=== PATIENT | male | born 1945 | race Caucasian/White ===

== ENCOUNTER → 2020-10-14 | Outpatient (CLI) | payer OTHER ==
--- NOTE | 2020-10-14 13:34 | Diagnostic Imaging Report ---
INDICATION: History of kidney stones. COMPARISON: None FINDINGS: Single frontal radiographic view of the abdomen was obtained. Several punctate microcalcifications are seen projecting over the superior pole of the left kidney. Several other microcalcifications are also seen peripheral to the left renal shadow. Also these may relate to renal calculi, debris related to colonic content is also consideration. Multiple well-circumscribed round and extraosseous calcifications are also noted projecting over the pelvis, bilaterally. These may relate to venous phleboliths, although distal ureteral calculi cannot be excluded. There is no prior available for comparison. Patient is status post previous aortobiiliac stent graft. No unexpected radiopaque foreign bodies are seen. Small bowel loops are nondistended. There is no large collection of free intraperitoneal air. IMPRESSION: 1. Probable colonic debris projecting over the left renal shadow and fossa, although punctate renal calculi cannot be entirely excluded. If further evaluation is indicated, correlation with CT is advised. 2. Probable multiple phleboliths, although distal ureteral calculi are not entirely excluded. Dictated by: Dictated on workstation # [id number]
--- NOTE | 2020-10-14 13:51 | Diagnostic Imaging Report ---
PROCEDURE: CT abdomen and pelvis without contrast. TECHNIQUE: Multiple contiguous axial images were obtained through the abdomen and pelvis without the use of intravenous contrast. Auto Exposure Controls were utilized during the CT exam to meet ALARA standards for radiation dose reduction. INDICATION: Kidney stones. COMPARISON: No prior CT studies are available for comparison. FINDINGS: The lung bases are clear. The liver is unremarkable. Gallbladder contains multiple stones. No biliary duct dilatation is seen. Pancreas and spleen are unremarkable. No adrenal mass is identified. There is a tiny nonobstructing calculus in the lower pole of the right kidney. There are multiple cortical low attenuation lesions involving bilateral kidneys suggestive of cysts. There is a hyperdense lesion in the upper pole of the right kidney measuring 12 mm. It is indeterminate between a solid lesion versus hemorrhagic cyst. No hydronephrosis is identified. No ureteral calculi or ureteral dilatation is identified. Bladder is decompressed. 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 The excluded aneurysm sac dimensions are 5.7 cm AP diameter. Small and large bowel loops are normal caliber. There is no obstruction. There is diverticulosis of the sigmoid but no evidence of acute diverticulitis. The prostate is enlarged. The bony structures are nonacute. There is a fat-containing right inguinal hernia. IMPRESSION: 1. Cholelithiasis. 2. Tiny nonobstructing right renal calculus. No ureteral calculi or hydronephrosis is detected. 3. Bilateral renal cysts. 4. Indeterminate hyperdense lesion in the upper pole of the right kidney. Follow-up to confirm stability would be recommended. 5. Uncomplicated diverticulosis. 6. Prostatomegaly. 7. Fat-containing right inguinal hernia. Dictated by: Dictated on workstation # [id number]
== END ==
LOC: RAD 13:45
PROVIDERS: ATTEND Urology
DX: N20.0 Calculus of kidney (principal); N28.1 Cyst of kidney, acquired; N28.9 Disorder of kidney and ureter, unspecified; N40.0 Benign prostatic hyperplasia without lower urinary tract symptoms; K80.20 Calculus of gallbladder without cholecystitis without obstruction; K57.30 Diverticulosis of large intestine without perforation or abscess without bleeding; K40.90 Unilateral inguinal hernia, without obstruction or gangrene, not specified as recurrent
CPT/HCPCS: 74018; 74176

== ENCOUNTER 2021-08-07 17:33 | Observation (INO) | payer OTHER, MEDICARE ==
[~2021-08-07] VITALS: Ht 180 cm; Wt 95.5 kg
[2021-08-07] MEDS ORDERED: BISACODYL 10 MG SUPP (DULCOLAX) PR PRN (18:30)
[2021-08-07] MEDS ORDERED: LACTULOSE SYRUP 10GM/15ML (ENULOSE) 30ML UDC PO PRN (18:30)
[2021-08-07] MEDS ORDERED: ONDANSETRON 4 MG (ZOFRAN) ORAL DISSOLVE TAB PO PRN (18:30)
[2021-08-07] MEDS ORDERED: ENOXAPARIN 40 MG/0.4 ML (LOVENOX) SYR SC SCH (18:30)
[2021-08-07] MEDS ORDERED: diphenhydrAMINE 25 MG TAB (BENADRYL) PO PRN (18:30)
[2021-08-07] MEDS ORDERED: ONDANSETRON 4 MG/2 ML (SDV) Z0FRAN IV PRN (18:30)
[2021-08-07] MEDS ORDERED: NITROGLYCERIN 0.4 MG SL TABS BTL 25'S SL PRN (18:30)
[2021-08-07] MEDS ORDERED: ANTACID SUSP 30 ML UDC (MYLANTA) PO PRN (18:30)
[2021-08-07] MEDS ORDERED: polyethylene glycoL POWDER 17 GM (MIRALAX) PACK PO PRN (18:30)
[2021-08-07] MEDS ORDERED: MILK OF MAGNESIA 400 MG/5 ML 30 ML UDC PO PRN (18:30)
[2021-08-07] MEDS ORDERED: diphenhydrAMINE 50 MG/ML INJ (BENADRYL) IVP PRN (18:30)
[2021-08-07] MEDS ORDERED: NALOXONE 0.4 MG/ML 1 ML (NARCAN) VIAL IV PRN (18:30)
[2021-08-07] MEDS ORDERED: CALCIUM CARBONATE 500 MG (TUMS) TAB.CHEW PO PRN (18:30)
[2021-08-07] MEDS ORDERED: ACETAMINOPHEN 325 MG TABLET PO PRN (18:30)
[2021-08-07] MEDS ORDERED: PATIENT MAY USE OWN MEDS, ALL PO SCH (18:30)
[2021-08-07] MEDS ORDERED: morphine INJ 4 MG/ML 1 ML (VIAL/SYRINGE) IV PRN (18:30)
[2021-08-07] MEDS ORDERED: MELATONIN 3 MG TABLET PO PRN (18:30)
--- OUTSIDE RECORDS SUMMARY | 2021-08-07 18:51 | XMS REPORT | Encounter Summary ---
[facility] Address Unknown Phone Unavailable Support Name Relationship Address Phone Yvette BENITO Next Of Kin [address] [id number] Yvette BENITO ECON [address] [phone] Ariela BENITO Next Of Kin [address] [place] [address] Insurance Providers: All historical and current Section Date Range: From patient's date of to the date document was create d. This section includes the names of all active insurance providers for the maddie ordaz Insurance Provider Type of Coverage Plan Name Start of Policy Co verage End of Policy Coverage Group Number Member ID Insurance Provider's Telephone N umber Policy Raphael's Name Patient's Relationship to Policy Raphael [facility] [place] PREFERRED PROVIDER ORGANIZATION (PPO) ANGEL Jan 22, 1998 [id number] CHAPARRO BENITO PATIENT MEDICARE (WNR) MEDICARE (M) PART A Mar 04, 2015 PART A [id number] CHAPARRO BENITO PATIENT MEDICARE (WNR) MEDICARE (M) PART B Mar 04, 2015 PART B [id number] CHAPARRO BENITO PATIENT [id number] FOR LIFE WNR Mar 04, 2015 FOR LIFE [id number] CHAPARRO BENITO PATIENT Selected Encounter This section includes the information on record at [place] for the Encounter. Date/Time Encounter Type Encounter Description Reason Provider Source Oct 02, 2020 10:20 AM Outpatient Encounter ADMIN PAT ACTIVTIES (SANCHO NCT) IHE Encounter Template Text not used by [facility] Assessments - Encounter Diagnoses No Data Provided for This Section Plan of Treatment: Future Appointments (+ 6 months) and Future Tests (+/- 45 day s) The Plan of Treatment section includes future care activities for the patient fr om all [place] treatment facilities. This section includes future appointments and fu ture orders which are active, pending or scheduled. Future Appointments This section includes appointments that were scheduled t o occur 6 months from the date of the Encounter, up to a maximum of 20 appointme nts. The data comes from all [facility]. Appointment Date/Time Appointment Type Appointment Facili ty Name Oct 06, 2020 02:45 PM AMBULATORY - NONE [facility] Feb 26, 2021 02:30 PM AMBULATORY - NONE [facility] Mar 02, 2021 01:00 PM [facility]ULATORY - MEDICINE [facility] Surgical Procedures: All associated to the encounter No Data Provided for This Section Lab Results: +/- 30 days of the encounter This section includes the Chemistry and Hematology Lab R esults on record with [place] for the patient. Radiology Reports and Pathology Report s are provided separately, in subsequent sections. Lab Results This section contains the Chemistry/Hematology Results petar t were resulted 30 days before or 30 days after the date of the Encounter. Date/Time Source Result Type Result - Unit Interpretation Reference Range Comment Sep 10, 2020 09:41 AM [facility] OCCULT BLOOD FIT X1 SCREEN Specimen Type: FECES No comment entered. Ordering Provider: CHAPARRO LEWIS Report Released Date/Time: Sep 02, 2020 10:40 AM Reporting Lab: [facility] [address] [facility] [id number] Performing Lab: [facility] [address] [facility] [id number] OCCULT BLOOD (FIT) #1 OF 1 Negative Neg ative Vital Signs: All taken on the encounter date No Data Provided for This Section Immunizations: All administered on the encounter date No Data Provided for This Section Social History: Smoking Status (Most current) and Tobacco Use (All prior to enco unter date) This section includes the most current, and the historical, smoking and tobacco- related health factors from the [place] facility where the Encounter took place. Current Smoking Status This section includes the most current smoking, or tobacco -related health factor, from the [place] facility where the Encounter took place. Date/Time Current Smoking Status Comment Facility Sep 02, 2020 10:30 AM [place]-TOBACCO FORMER USER [facility] Tobacco Use History This section includes a history of the smoking, or tobacco -related health factors, that were collected on or before the date of the Encoun ter. The data comes from the [place] facility where the Encounter took place. Date/Time Smoking Status/Tobacco Use Comment [facility] it Sep 02, 2020 10:30 AM [place]-TOBACCO QUIT 15 YRS OR MORE [facility] Advance Directives: All historical and current No Data Provided for This Section Radiology Reports: +/- 30 days of the encounter No Data Provided for This Section Pathology Reports: +/- 30 days of the encounter No Data Provided for This Section Encounter Notes: All associated encounter notes This section contains the clinical notes associated to the Encounter. Date/Time Encounter Note(s) Provider Source Oct 02, 2020 10:20 AM ADMINISTRATIVE NOTE: LOCAL TITLE: [place]-ADMIN [facility] STANDARD TITLE: ADMINISTRATIVE NOTE DATE OF NOTE: OCT 02, 2020@10:20 ENTRY DATE: OCT 02, 2020@10:20:50 AUTHOR: EVA YOUNG EXP COSIGNER: URGENCY: STATUS: COMPLETED RIGO Administrative Note: RECORDS RECEIVED TODAY by: Fax Nature of report:Rx's Date(s) of record(s):09/08/2020 Sending libertarian:Barbara Hurtado DO /dori/ EVA [facility] Signed: 10/02/2020 10:21 EVA YOUNG CAMILLA
--- OUTSIDE RECORDS SUMMARY | 2021-08-07 18:52 | XMS REPORT | Encounter Summary ---
Author Author Department [facility] CHAPARRO reyes Organization Department [facility] Address Unknown Phone Unavailable Support Name Relationship Address Phone Yvette BENITO Next Of Kin [address] [phone] Yvette BENITO ECON [address] [phone] Ariela BENITO Next Of Kin [address] [place] [address] Insurance Providers: All historical and [...] Raphael's Name Patient's Relationship to Policy Raphael BS [place] PREFERRED PROVIDER ORGANIZATION (PPO) ANGEL Jan 22, 1998 [id number] CHAPARRO BENITO PATIENT MEDICARE (WNR) MEDICARE (M) PART A Mar 04, 2015 PART A [id number] [phone] CHAPARRO BENITO PATIENT MEDICARE (WNR) MEDICARE (M) PART B Mar 04, 2015 PART B [id number] [phone] CHAPARRO BENITO PATIENT [id number] FOR LIFE WNR Mar 04, 2015 FOR LIFE [id number] CHAPARRO BENITO PATIENT Selected Encounter This section includes the information on record at [place] for the Encounter. Date/Time Encounter Type Encounter Description Reason Provider Source Jan 15, 2021 08:43 AM Outpatient Encounter COMMUNITY CARE CONSULT IHE Encounter Template Text not used by [facility] Assessments - Encounter Diagnoses No Data Provided for This Section Plan of Treatment: Future Appointments (+ 6 months) and Future Tests (+/- 45 day s) The Plan of Treatment section includes future care activities for the patient fr om all [place] treatment facilities. This section includes future appointments and fu ture orders which are active, pending or scheduled. Future Appointments This section includes appointments that were scheduled t o occur 6 months from the date of the Encounter, up to a maximum of 20 appointme nts. The data comes from all [facility]. Appointment Date/Time Appointment Type Appointment Facili ty Name Feb 26, 2021 02:30 PM AMBULATORY - NONE [facility] 15 Mar 02, 2021 01:00 PM [facility]ULATORY - MEDICINE [facility] May 14, 2021 10:45 AM AMBULATORY - NONE [facility] 15 Surgical Procedures: All associated to the encounter No Data Provided for This Section Lab Results: +/- 30 days of the encounter No Data Provided for This Section Vital Signs: All taken on the encounter date No Data Provided for This Section Immunizations: All administered on the encounter date No Data Provided for This Section Social History: Smoking Status (Most current) and Tobacco Use (All prior to enco unter date) No Data Provided for This Section Advance Directives: All historical and current No Data Provided for This Section Radiology Reports: +/- 30 days of the encounter No Data Provided for This Section Pathology Reports: +/- 30 days of the encounter No Data Provided for This Section Encounter Notes: All associated encounter notes This section contains the clinical notes associated to the Encounter. Date/Time Encounter Note(s) Provider Source Jan 15, 2021 08:43 AM NONVA NOTE: LOCAL TITLE: COMMUNITY CARE-REQUEST FOR SERVICE NOTE [place] STANDARD TITLE: NONVA NOTE DATE OF NOTE: JAN 15, 2021@08:43 ENTRY DATE: JAN 15, 2021@08:43:15 AUTHOR: SIA GTZ COSIGNER: URGENCY: STATUS: COMPLETED COMMUNITY CARE-REQUEST FOR SERVICE NOTE [place] Has ADDENDA A Request for Service (RFS) form has been received which includes the following: Rec'd RFS from: Barbara Hurtado ph: [phone] fx: [phone] Requested Care: Optometry Left Eye bluriness-eval and management DX: H53.8 Preferred provider: Dr. Elvia Wilkerson ph: fx: NPI: Last OCC PCP appt: 01-13-21 Signed RFS order/Supporting Medical Documentation is available in [facility] /dori/ SIA GTZ RN Signed: 01/15/2021 12:18 Receipt Acknowledged By: 01/15/2021 12:33 /es/ LUPIS ZAYAS OCC [facility] 01/15/2021 ADDENDUM STATUS: COMPLETED Adding OCC RN for consult placement. /es/ LUPIS DE LEÓN OCC [facility]MS[facility] Signed: 01/15/2021 12:36 Receipt Acknowledged By: 01/15/2021 12:52 /es/ TREVOR MAYEN RN [facility] 01/15/2021 ADDENDUM STATUS: COMPLETED Will alert team AMSA to call ask sorting questions and enter DS optometry consult. /es/ TREVOR COSTELLO RN [facility] Signed: 01/15/2021 12:52 Receipt Acknowledged By: 01/15/2021 13:11 /es/ RAMÓN MACIEL MSA 01/15/2021 ADDENDUM STATUS: COMPLETED LVM for to call - need to ask sorting questions to put in consult - Ext [phone] /dori/ RAMÓN LIZARRAGA MSA Signed: 01/15/2021 13:12 SIA GTZ [facility]
--- OUTSIDE RECORDS SUMMARY | 2021-08-07 18:52 | XMS REPORT | Encounter Summary ---
Author [facility] Address Unknown Phone Unavailable Support Name Relationship Address Phone Yvette BENITO Next Of Kin [address] [phone] Yvette BENITO ECON [address] [phone] Ariela BENITO Next Of Kin [address] [place] [address] Insurance Providers: All historical and [...] Raphael's Name Patient's Relationship to Policy Raphael [facility] [place] PREFERRED PROVIDER ORGANIZATION (PPO) ANGEL Jan 22, 1998 [id number] CHAPARRO BENITO PATIENT MEDICARE (WNR) MEDICARE (M) PART A Mar 04, 2015 PART A [id number] [phone] CHAPARRO BENITO PATIENT MEDICARE (WNR) MEDICARE (M) PART B Mar 04, 2015 PART B [id number] [id number] [phone] CHAPARRO BENITO PATIENT [id number] FOR LIFE WNR Mar 04, 2015 FOR LIFE [id number] CHAPARRO BENITO PATIENT Selected Encounter This section includes the information on record at [place] for the Encounter. Date/Time Encounter Type Encounter Description Reason Provider Source Jan 02, 2021 12:56 PM Outpatient Encounter ADMIN PAT ACTIVTIES (SANCHO NCT) IHE Encounter Template Text not used by [facility] Assessments - Encounter Diagnoses No Data Provided for This Section Plan of Treatment: Future Appointments (+ 6 months) and Future Tests (+/- 45 day s) The Plan of Treatment section includes future care activities for the patient fr om all [facility] facilities. This section includes future appointments and fu ture orders which are active, pending or scheduled. Future Appointments This section includes appointments that were scheduled t o occur 6 months from the date of the Encounter, up to a maximum of 20 appointme nts. The data comes from all [facility]. Appointment Date/Time Appointment Type Appointment Facili ty Name Feb 26, 2021 02:30 PM AMBULATORY - NONE [facility] 15 Mar 02, 2021 01:00 PM AMBULATORY - MEDICINE [facility] May 14, 2021 10:45 AM AMBULATORY - NONE [facility] 15 Surgical Procedures: All associated [...] and tobacco- related health factors from the [place] facility where the Encounter took place. Current Smoking Status This section includes the most current smoking, or tobacco -related health factor, from the [place] facility where the Encounter took place. Date/Time Current Smoking Status Comment Facility Sep 02, 2020 10:30 AM [place]-TOBACCO FORMER USER [facility] Tobacco Use History This section includes a history of the smoking, or tobacco -related health factors, that were collected on or before the date of the Encoun ter. The data comes from the [place] facility where the Encounter took place. Date/Time Smoking Status/Tobacco Use Comment Facil ity Sep 02, 2020 10:30 AM [place]-TOBACCO QUIT 15 YRS OR MORE [facility] Advance Directives: All historical and current No Data Provided for This Section Radiology Reports: +/- 30 days of the encounter No Data Provided for This Section Pathology Reports: +/- 30 days of the encounter No Data Provided for This Section Encounter Notes: All associated encounter notes This section contains the clinical notes associated to the Encounter. Date/Time Encounter Note(s) Provider Source Jan 02, 2021 12:56 PM ADMINISTRATIVE NOTE: LOCAL TITLE: [place]-ADMIN [facility] STANDARD TITLE: ADMINISTRATIVE NOTE DATE OF NOTE: JAN 02, 2021@12:56 ENTRY DATE: JAN 02, 2021@12:56:25 AUTHOR: SIA TAMEZ EXP COSIGNER: URGENCY: STATUS: COMPLETED Scheduling: ANSWERING MACHINE MESSAGE On Dec@12:56 an attempt was made contact [facility] to schedule appointment in :[place] [facility] P[facility]. A message including the purpose of the call and a call back number was left on an answering machine. /dori/ SIA TAMEZ [facility] Signed: 01/02/2021 12:57 SIA TAMEZ OC
--- OUTSIDE RECORDS SUMMARY | 2021-08-07 18:52 | XMS REPORT | Encounter Summary ---
Author [facility] Organization Department [facility] Address Unknown Phone Unavailable Support Name Relationship Address Phone Yvette BENITO Next Of Kin [address] [phone] Yvette BENITO ECON [address] [phone] Ariela BENITO Next Of Kin [address] [place] [address] Insurance Providers: All historical and [...] Raphael's Name Patient's Relationship to Policy Raphael [facility] [place] PREFERRED PROVIDER ORGANIZATION (PPO) ANGEL Jan 22, 1998 [id number] CHAPARRO BENITO PATIENT MEDICARE (WNR) MEDICARE (M) PART A Mar 04, 2015 PART A [id number] CHAPARRO BENITO PATIENT MEDICARE (WNR) MEDICARE (M) PART B Mar 04, 2015 PART B [id number] [phone] CHAPARRO BENITO PATIENT [id number] FOR LIFE WNR Mar 04, 2015 FOR LIFE [id number] CHAPARRO BENITO PATIENT Selected Encounter This section includes the information on record at [place] for the Encounter. Date/Time Encounter Type Encounter Description Reason Provider Source Sep 09, 2020 03:10 PM Outpatient Encounter ADMIN PAT ACTIVTIES (MARCOSNO NCT) IHE Encounter Template Text not used by [facility] Assessments - Encounter Diagnoses No Data Provided for This Section Plan of Treatment: Future Appointments (+ 6 months) and Future Tests (+/- 45 day s) The Plan of Treatment section includes future care activities for the patient fr om all [place] treatment facilities. This section includes future appointments and fu ture orders which are active, pending or scheduled. Future Appointments This section includes appointments that were scheduled t o occur 6 months from the date of the Encounter, up to a maximum of 20 appointme nts. The data comes from all [place] treatment facilities. Appointment Date/Time Appointment Type Appointment Facili ty Name Oct 01, 2020 10:45 AM AMBULATORY - MEDICINE [facility] Oct 06, 2020 02:45 PM AMBULATORY - NONE [facility] T, VISN Feb 26, 2021 02:30 PM AMBULATORY - NONE [facility] T, [facility] Mar 02, 2021 01:00 PM AMBULATORY - MEDICINE [facility] Surgical Procedures: All associated to the encounter No Data Provided for This Section Lab Results: +/- 30 days of the encounter This section includes the Chemistry and Hematology Lab R esults on record with [place] for the patient. Radiology Reports and Pathology Report s are provided separately, in subsequent sections. Lab Results This section contains the Chemistry/Hematology Results petar t were resulted 30 days before or 30 days after the date of the Encounter. Date/Time Source Result Type Result - Unit Interpretation Reference Range Comment Sep 10, 2020 09:41 AM [facility] OCCULT BLOOD FIT X1 SCREEN Specimen Type: FECES No comment entered. Ordering Provider: CHAPARRO LEWIS Report Released Date/Time: Sep 02, 2020 10:40 AM Reporting Lab: [facility] [address] [address] Performing Lab: [facility] [address] [facility] [phone] OCCULT BLOOD (FIT) #1 OF 1 Negative Neg ative Sep 02, 2020 11:30 AM [facility] COMPREHENSIVE METABOLIC PA TORIBIO Specimen Type: PLASMA Comment: Race unknown, if multiply result by 1.210 Ordering Provider: CHAAPRRO LEWIS Report Released Date/Time: Aug 27, 2020 09:04 AM Reporting Lab: [facility] [address] [address] Performing Lab: [facility] [address] [facility] [phone] *CREATININE 0.86 mg/dL 0.70-1.30 UREA NITROGEN mg/dL 13 mg/dL 9-25 GLUCOSE 137 mg/dL H 70-99 SODIUM 142 mEq/L 136-145 POTASSIUM 4.7 mEq/L 3.5-5 CALCIUM (mg/dL) 9.8 mg/dL 8.4-10.2 PROTEIN,TOTAL 7.2 g/dL 6-8.6 ALBUMIN 4.4 g/dL 3.4-5 TOTAL BILIRUBIN 1.2 mg/dL H 0.2-1.0 ASPARTATE TRANSAMINASE 21 U/L 5-34 ALANINE AMINOTRANSFERASE 20 U/L 8-40 ANION GAP 8.4 8-16 CHLORIDE 107 mEq/L 98-107 CO2 27.0 mEq/L 22-31 ALKALINE PHOSPHATASE 82 U/L 40-150 EGFR 86.9 Sep 02, 2020 11:30 AM [facility] LIPID PROFILE(HDL,TRIG,CHO L,LDL) Specimen Type: PLASMA Comment: Race unknown, if multiply result by 1.210 Ordering Provider: CHAPARRO LEWIS Report Released Date/Time: Aug 27, 2020 09:04 AM Reporting Lab: [facility] [address] [address] Performing Lab: [facility] [place] [address] [facility] [phone] CHOLESTEROL 146 mg/dL 0-200 TRIGS 119 mg/dL 0-150 HDL-CHOLESTEROL 45 mg/dL > 40 LDL (CALC) 77.0 mg/dL Sep 02, 2020 11:30 AM [facility] TSH Specimen T ype: SERUM No comment entered. Ordering Provider: CHAPARRO LEWIS Report Released Date/Time: Aug 27, 2020 09:04 AM Reporting Lab: [facility] [place] [address] [facility] [address] Performing Lab: [facility] [place] [address] [facility] [address] TSH 0.93 uIU/mL 0.47-5 Sep 02, 2020 11:30 AM [facility] PROSTATIC SPECIFIC ANTIGEN (TOTAL) Specimen Type: SERUM No comment entered. Ordering Provider: CHAPARRO LEWIS Report Released Date/Time: Aug 27, 2020 09:04 AM Reporting Lab: [facility] [address] [facility] [phone] Performing Lab: [facility] [address] [facility] [phone] PROSTATIC SPECIFIC ANTIGEN(TOTAL) 1.1 ng/mL 0-4 Sep 02, 2020 11:30 AM [facility] HEMOGLOBIN A1C Specimen T ype: BLOOD No comment entered. Ordering Provider: CHAPARRO LEWIS Report Released Date/Time: Aug 27, 2020 09:04 AM Reporting Lab: [facility] [address] [facility] [phone] Performing Lab: [facility] [address] [facility] [phone] HEMOGLOBIN A1C 6.9 % H 4.0-6.0 Sep 02, 2020 11:30 AM [facility] URINALYSIS Specimen T ype: URINE No comment entered. Ordering Provider: CHAPARRO LEWIS Report Released Date/Time: Aug 27, 2020 09:04 AM Reporting Lab: [facility] [address] [facility] [phone] Performing Lab: [facility] [address] [facility] [phone] URINE COLOR Yellow SPECIFIC GRAVITY 1.015 1.005-1.030 UROBILINOGEN Negative mg/dL 0.1-1.0 URINE BILIRUBIN Negative Negative URINE KETONES Negative mg/dl Negative URINE GLUCOSE Negative mg/dL Negative URINE PROTEIN Negative mg/dl Negative-Tr lico URINE PH 7.0 5-8 URINE MUCUS Trace /LPF None APPEARANCE,URINE Hazy Clear URINE BLOOD Negative Negative URINE NITRITE Negative Negative LEUKOCYTE ESTERASE Negative Negative *UR WBC 3-5 WBC/HPF 0-5 *UR RBC 3-5 RBC/HPF H 0-2 SQUAMOUS EPITHELIAL Trace /HPF Sep 02, 2020 11:30 AM [facility] MICROALBUMIN (JOSE,WI) RANDO M URINE Specimen Type: URINE No comment entered. Ordering Provider: CHAPARRO LEWIS Report Released Date/Time: Aug 27, 2020 09:04 AM Reporting Lab: [facility] [place] [address] [facility] [phone] Performing Lab: [facility] [place] [address] [facility] [phone] *MICROALBUMIN,RAND 12 ug/mL 0-29 *MICROALB/CREAT 18 mcg/mg cr 0-29 *UR CREATININE 68.7 mg/dL Sep 02, 2020 11:30 AM [facility] CBC & DIFF Specimen T ype: BLOOD No comment entered. Ordering Provider: CHAPARRO LEWIS Report Released Date/Time: Aug 27, 2020 09:04 AM Reporting Lab: [facility] [place] [address] [facility] [phone] Performing Lab: [facility] [place] [address] [facility] [phone] WBC 6.8 K/cmm 3.60-11.20 RBC 4.86 M/ul 4.1-5.7 HGB 15.2 g/dl 13.1-16.8 HCT 45.2 % 38.2-48.4 MCV 93.0 fl 80.1-98.5 MCH 31.3 pg 27.0-34.0 MCHC 33.6 g/dl 33.0-36.0 PLATELET COUNT 138 K/cmm L 150-400 MPV 10.4 fl 7.5-11.2 RDW 12.4 % 11.8-15.1 LYMPHOCYTES, AUTO% 17.0 % NEUTROPHILS, AUTO % 72.8 % MONOCYTES, AUTO% 7.3 % MONOCYTES, ABSOLUTE 0.5 K/cmm 0.19-0.80 NEUTROPHILS, ABSOLUTE 5.0 K/cmm 2.10-8.0 0 EOSINOPHILS, ABSOLUTE 0.1 K/cmm 0.00-0.6 0 BASOPHILS, ABSOLUTE 0.0 K/cmm 0.00-0.20 EOSINOPHILS, AUTO% 1.9 % BASOPHILS, AUTO% 0.6 % LYMPHOCYTES, ABSOLUTE 1.2 K/cmm 0.77-4.5 0 IMMATURE GRANS, ABSOLUTE 0.03 K/cmm 0.00 -0.05 IMMATURE GRANS, AUTO % 0.4 % Vital Signs: All taken on the encounter date No Data Provided for This Section Immunizations: All administered on the encounter date No Data Provided for This Section Social History: Smoking Status (Most current) and Tobacco Use (All prior to enco unter date) This section includes the most current, and the historical, smoking and tobacco- related health factors from the [place] facility where the Encounter took place. Current Smoking Status This section includes the most current smoking, or tobacco -related health factor, from the [place] facility where the Encounter took place. Date/Time Current Smoking Status Comment Facility Sep 02, 2020 10:30 AM [place]-TOBACCO FORMER USER [facility] Tobacco Use History This section includes a history of the smoking, or tobacco -related health factors, that were collected on or before the date of the Encoun ter. The data comes from the [place] facility where the Encounter took place. Date/Time Smoking Status/Tobacco Use Comment Facil it Sep 02, 2020 10:30 AM VA-TOBACCO [...] the Encounter. Date/Time Encounter Note(s) Provider Source Sep 09, 2020 03:10 PM ADMINISTRATIVE NOTE: LOCAL TITLE: [place]-ADMIN [facility] STANDARD TITLE: ADMINISTRATIVE NOTE DATE OF NOTE: SEP 09, 2020@15:10 ENTRY DATE: SEP 09, 2020@15:10:35 AUTHOR: EVA YOUNG EXP COSIGNER: URGENCY: STATUS: COMPLETED [facility] Administrative Note: RECORDS RECEIVED TODAY by: Fax Nature of report:Rx's Date(s) of record(s):09/08/2020 Sending constitution party:Barbara Hurtado DO /dori/ EVA MATHIS Signed: 09/09/2020 15:12 EVA YOUNG [facility]
--- OUTSIDE RECORDS SUMMARY | 2021-08-07 18:52 | XMS REPORT | Encounter Summary ---
Author Author [facility] Address Unknown Phone Unavailable Support Name Relationship Address Phone Yvette LONG Next Of Kin [address] [phone] Yvette LONG ECON [address] [phone] Ariela LONG Next Of Kin [address] [place] [address] Insurance Providers: All historical and [...] Name Patient's Relationship to Policy Raphael [facility] [place] PREFERRED PROVIDER ORGANIZATION (PPO) ANGEL Jan 22, 1998 [id number] TYLER LONG PATIENT MEDICARE (WNR) MEDICARE (M) PART A Mar 04, 2015 PART A [id number] TYLER LONG PATIENT MEDICARE (WNR) MEDICARE (M) PART B Mar 04, 2015 PART B [id number] [phone] TYLER LONG PATIENT [id number] FOR LIFE WNR Mar 04, 2015 FOR LIFE [id number] TYLER LONG PATIENT Selected Encounter This section includes the information on record at [place] for the Encounter. Date/Time Encounter Type Encounter Description Reason Provider Source Mar 03, 2021 08:57 AM Outpatient Encounter ADMIN PAT ACTIVTIES (SANCHO NCT) IHE Encounter Template Text not used by VA Assessments - Encounter Diagnoses No Data Provided for This Section Plan of Treatment: Future Appointments (+ 6 months) and Future Tests (+/- 45 day s) The Plan of Treatment section includes future care activities for the patient fr om all [place] treatment facilities. This section includes future appointments and fu ture orders which are active, pending or scheduled. Future Appointments This section includes appointments that were scheduled t o occur 6 months from the date of the Encounter, up to a maximum of 20 appointme nts. The data comes from all [facility]. Appointment Date/Time Appointment Type Appointment Facili ty Name May 14, 2021 10:45 AM AMBULATORY - NONE [facility] T, VISN 15 Jul 30, 2021 10:00 AM AMBULATORY - NONE [facility] T, VISN Aug 03, 2021 01:00 PM AMBULATORY - NONE [facility] T, VISN 15 Sep 02, 2021 11:00 AM AMBULATORY - MEDICINE [facility] Surgical Procedures: All associated to the encounter No Data Provided for This Section Lab Results: +/- 30 days of the encounter This section includes the Chemistry and Hematology Lab R esults on record with [place] for the patient. Radiology Reports and Pathology Report s are provided separately, in subsequent sections. Lab Results This section contains the Chemistry/Hematology Results petar t were resulted 30 days before or 30 days after the date of the Encounter. Date/Time Source Result Type Result - Unit Interpretation Reference Range Comment Mar 02, 2021 01:34 PM [facility] LIPID PROFILE(HDL,TRIG,CHO L,LDL) Specimen Type: PLASMA Comment: Race unknown, if multiply result by 1.210 Ordering Provider: TYLER LEWIS Report Released Date/Time: Sep 02, 2020 11:39 AM Reporting Lab: [facility] [address] [facility] [address] Performing Lab: [facility] [address] [facility] [address] CHOLESTEROL 128 mg/dL 0-200 TRIGS 118 mg/dL 0-150 HDL-CHOLESTEROL 35 mg/dL L > 40 LDL (CALC) 69.0 mg/dL Mar 02, 2021 01:34 PM [facility] BASIC METABOLIC PANEL Spe cimen Type: PLASMA Comment: Race unknown, if multiply result by 1.210 Ordering Provider: TYLER LEWIS Report Released Date/Time: Sep 02, 2020 11:39 AM Reporting Lab: [facility] [address] [facility] [address] Performing Lab: [facility] [place] [address] [place] [address] *CREATININE 0.80 mg/dL 0.70-1.30 UREA NITROGEN mg/dL 17 mg/dL 9-25 GLUCOSE 105 mg/dL H 70-99 SODIUM 141 mEq/L 136-145 POTASSIUM 4.4 mEq/L 3.5-5 CALCIUM (mg/dL) 10.7 mg/dL H 8.4-10.2 ANION GAP 11.1 8-16 CHLORIDE 107 mEq/L 98-107 CO2 23.0 mEq/L 22-31 EGFR 94.5 Mar 02, 2021 01:34 PM [facility] HEMOGLOBIN A1C Specimen T ype: BLOOD No comment entered. Ordering Provider: TYLER LEWIS Report Released Date/Time: Sep 02, 2020 11:39 AM Reporting Lab: [facility] [place] [address] [facility] [address] Performing Lab: [facility] [place] [address] [facility] [address] HEMOGLOBIN A1C 7.0 % H 4.0-6.0 Mar 02, 2021 01:34 PM [facility] MICROALBUMIN (,WI) RANDO M URINE Specimen Type: URINE No comment entered. Ordering Provider: TYLER LEWIS Report Released Date/Time: Sep 02, 2020 11:39 AM Reporting Lab: [facility] [place] [address] [facility] [address] Performing Lab: [facility] [place] [address] [facility] [address] *MICROALBUMIN,RAND 23 ug/mL 0-29 *MICROALB/CREAT 22 mcg/mg cr 0-29 *UR CREATININE 104.7 mg/dL Mar 02, 2021 01:34 PM [facility] ALANINE AMINOTRANSFERASE Specimen Type: PLASMA Comment: Race unknown, if multiply result by 1.210 Ordering Provider: TYLER LEWIS Report Released Date/Time: Sep 02, 2020 11:39 AM Reporting Lab: [facility] [address] [facility] [address] Performing Lab: [facility] [address] [facility] [address] ALANINE AMINOTRANSFERASE 18 U/L 8-40 Mar 02, 2021 01:34 PM [facility] ASPARTATE TRANSAMINASE Sp ecimen Type: PLASMA Comment: Race unknown, if multiply result by 1.210 Ordering Provider: TYLER LEWIS Report Released Date/Time: Sep 02, 2020 11:39 AM Reporting Lab: [facility] [address] [facility] [address] Performing Lab: [facility] [address] [facility] [address] ASPARTATE TRANSAMINASE 20 U/L 5-34 Vital Signs: All taken on the encounter date No Data Provided for This Section Immunizations: All administered on the encounter date No Data Provided for This Section Social History: Smoking Status (Most current) and Tobacco Use (All prior to enco unter date) This section includes the most current, and the historical, smoking and tobacco- related health factors from the [place] facility where the Encounter took place. Current Smoking Status This section includes the most current smoking, or tobacco -related health factor, from the [place] facility where the Encounter took place. Date/Time Current Smoking Status Comment Facility Sep 02, 2020 10:30 AM [place]-TOBACCO FORMER USER [facility] Tobacco Use History This section includes a history of the smoking, or tobacco -related health factors, that were collected on or before the date of the Encoun ter. The data comes from the [place] facility where the Encounter took place. Date/Time Smoking Status/Tobacco Use Comment [facility] Sep 02, 2020 10:30 AM [place]-TOBACCO QUIT 15 YRS OR MORE [place] [facility] [...] the Encounter. Date/Time Encounter Note(s) Provider Source Mar 03, 2021 08:57 AM ADMINISTRATIVE NOTE: LOCAL TITLE: [place]-ADMIN [facility] STANDARD TITLE: ADMINISTRATIVE NOTE DATE OF NOTE: MAR 03, 2021@08:57 ENTRY DATE: MAR 03, 2021@08:57:44 AUTHOR: EVA YOUNG EXP COSIGNER: URGENCY: STATUS: COMPLETED [facility] Administrative Note: Scheduling: ANSWERING MACHINE MESSAGE On Feb@08:57 an attempt was made contact [place] to schedule appointment in :[facility]/pact 1 . A message including the purpose of the call and a call back number was left on an answering machine. March 03, 2021 Tyler Long [address] [place] [address] Dear Patient: We have been unable to reach you to schedule your appointment by your Primary Care provider. We would like to encourage you to contact the [facility] at or Ext [phone]. It is important you contact us to reschedule your appointment. Thank you Primary Care Administration /dori/ EVA MATHIS Signed: 03/03/2021 09:00 EVA YOUNG OC
--- OUTSIDE RECORDS SUMMARY | 2021-08-07 18:52 | XMS REPORT | Encounter Summary ---
Author Author [facility] Organization Department [facility] Address Unknown Phone Unavailable Support Name Relationship Address Phone Yvette BENITO Next Of Kin [address] [phone] Yvette BENITO ECON [address] [phone] Ariela BENITO Next Of Kin [address] [place] [address] Insurance Providers: All historical and [...] Raphael's Name Patient's Relationship to Policy Raphael [facility] [place] PREFERRED PROVIDER ORGANIZATION (PPO) ANGEL Jan 22, 1998 [id number] CHAPARRO BENITO PATIENT MEDICARE (WNR) MEDICARE (M) PART A Mar 04, 2015 PART A [id number] CHAPARRO BENITO PATIENT MEDICARE (WNR) MEDICARE (M) PART B Mar 04, 2015 PART B [id number] [id number] [phone] CHAPARRO BENITO PATIENT PQOSRPO-ILG-GGOD FOR LIFE WNR Mar 04, 2015 FOR LIFE [id number] CHAPARRO BENITO PATIENT Selected Encounter This section includes the information on record at [place] for the Encounter. Date/Time Encounter Type Encounter Description Reason Provider Source Jul 30, 2021 08:00 AM Outpatient Encounter COMMUNITY CARE CONSULT IHE Encounter Template Text not used by [place] Assessments - Encounter Diagnoses No Data Provided for This Section Plan of Treatment: Future Appointments (+ 6 months) and Future Tests (+/- 45 day s) The Plan of Treatment section includes future care activities for the patient fr om all [facility] facilities. This section includes future appointments and fu ture orders which are active, pending or scheduled. Future Appointments This section includes appointments that were scheduled t o occur 6 months from the date of the Encounter, up to a maximum of 20 appointme nts. The data comes from all [facility]. Appointment Date/Time Appointment Type Appointment Facili ty Name Aug 03, 2021 01:00 PM AMBULATORY - NONE [facility] T, VISN 15 Sep 02, 2021 11:00 AM AMBULATORY - MEDICINE [facility] Active, Pending, and Scheduled Orders This section includes a listing of several types of activ e, pending, and scheduled orders, including clinic medications orders, diagnosti c test orders, procedure orders and consult orders; where the start date of th e order is 45 days before the date of the Encounter or 45 days after the date o f the Encounter. The data comes from all [facility]. Test Date/Time Test Type Test Details Facility Name Sep 02, 2021 12:00 AM Laboratory - Chemistry Order COMPREHEN SIVE METABOLIC PANEL GREEN TOP TUBE PLASMA SP [facility] Sep 02, 2021 12:00 AM Laboratory - Chemistry Order LIPID PROFILE(HDL,TRIG,CHOL,LDL) GREEN TOP TUBE PLASMA SP [facility] Sep 02, 2021 12:00 AM Laboratory - Chemistry Order CBC PROFI LE 5 ML LAVENDER TOP BLOOD SP [facility] Surgical Procedures: All associated to the encounter [...] the Encounter. Date/Time Encounter Note(s) Provider Source Jul 30, 2021 08:00 AM NONVA CONSULT: LOCAL TITLE: COMMUNITY CARE CONSULT RESULTS NOTE [place] STANDARD TITLE: NONVA CONSULT DATE OF NOTE: JUL 30, 2021@08:00 ENTRY DATE: JUL 30, 2021@15:33:20 AUTHOR: RACHAEL CASTILLO EXP COSIGNER: URGENCY: STATUS: COMPLETED The following Non VA Care consult has been completed. See scanned document for report. NON VA Care Consult Results Dental Comment: COMMUNITY CARE-DENTAL/[facility]/07-30-2021 /dori/ [facility] Signed: 07/30/2021 15:34 RACHAEL CASTILLO [facility]
--- OUTSIDE RECORDS SUMMARY | 2021-08-07 18:52 | XMS REPORT | Encounter Summary ---
Author [facility] Organization Department [facility] Address Unknown Phone Unavailable Support Name Relationship Address Phone Yvette BENITO Next Of Kin [address] [id number] Yvette BENITO ECON [address] [phone] Ariela BENITO Next Of Kin [address] [place] [address] Insurance Providers: All historical and [...] Raphael's Name Patient's Relationship to Policy Raphael [facility] [place] PREFERRED PROVIDER ORGANIZATION (PPO) ANGEL Jan 22, 1998 [id number] CHAPARRO BENITO PATIENT MEDICARE (WNR) MEDICARE (M) PART A Mar 04, 2015 PART A [id number] CHAPARRO BENITO PATIENT MEDICARE (WNR) MEDICARE (M) PART B Mar 04, 2015 PART B [id number] CHAPARRO BENITO PATIENT [id number] FOR LIFE WNR Mar 04, 2015 FOR LIFE [id number] CHAPARRO BENITO PATIENT Selected Encounter This section includes the information on record at [place] for the Encounter. Date/Time Encounter Type Encounter Description Reason Provider Source Apr 28, 2021 09:00 AM Outpatient Encounter ADMIN PAT ACTIVTIES (SANCHO NCT) IHE Encounter Template Text not used by VA Assessments - Encounter Diagnoses No Data Provided for This Section Plan of Treatment: Future Appointments (+ 6 months) and Future Tests (+/- 45 day s) The Plan of Treatment section includes future care activities for the patient fr om all [facility] facilities. This section includes future appointments and fu ture orders which are active, pending or scheduled. Future Appointments This section includes appointments that were scheduled t o occur 6 months from the date of the Encounter, up to a maximum of 20 appointme nts. The data comes from all [facility]. Appointment Date/Time Appointment Type Appointment Facili ty Name May 14, 2021 10:45 AM AMBULATORY - NONE [facility] T, [facility] 15 Jul 30, 2021 10:00 AM AMBULATORY - NONE [facility] T, [facility] Aug 03, 2021 01:00 PM AMBULATORY - NONE [facility] T, [facility] 15 Sep 02, 2021 11:00 AM AMBULATORY - MEDICINE [facility] Active, Pending, and Scheduled Orders This section [...] the Encounter. The data comes from all [facility]. Test Date/Time Test Type Test Details Facility Name Jun 02, 2021 04:23 PM Consult Order [facility] [id number] Cons Pst Specialist's Choice [facility] ENC[facility] Surgical Procedures: All associated to the [...] and tobacco- related health factors from the [place] facility where the Encounter took place. Current Smoking Status This section includes the most current smoking, or tobacco -related health factor, from the [place] facility where the Encounter took place. Date/Time Current Smoking Status Comment Facility Sep 02, 2020 10:30 AM VA-TOBACCO FORMER USER [facility] Tobacco Use History This section includes a history of the smoking, or tobacco -related health factors, that were collected on or before the date of the Encoun ter. The data comes from the [place] facility where the Encounter took place. Date/Time Smoking Status/Tobacco Use Comment Facil ity Sep 02, 2020 10:30 AM VA-TOBACCO QUIT 15 YRS OR MORE [facility] Advance Directives: All historical and current No Data Provided for This Section Radiology Reports: +/- 30 days of the encounter No Data Provided for This Section Pathology Reports: +/- 30 days of the encounter No Data Provided for This Section Encounter Notes: All associated encounter notes This section contains the clinical notes associated to the Encounter. Date/Time Encounter Note(s) Provider Source Apr 28, 2021 09:00 AM ADMINISTRATIVE NOTE: LOCAL TITLE: [place]-ADMIN MSA STANDARD TITLE: ADMINISTRATIVE NOTE DATE OF NOTE: APR 28, 2021@09:00 ENTRY DATE: APR 28, 2021@09:00:17 AUTHOR: EVA YOUNG EXP COSIGNER: URGENCY: STATUS: COMPLETED MSA Administrative Note: RECORDS RECEIVED TODAY by: Fax Nature of report:office visit Date(s) of record(s):04/07/2021 Sending republican:[facility] /dori/ EVA [facility]ATHIS Signed: 04/28/2021 09:00 EVA YOUNG OC
--- OUTSIDE RECORDS SUMMARY | 2021-08-07 18:52 | XMS REPORT ---
Author Author Department [facility] CHAPARRO reyes Organization Department [facility] Address Unknown Phone Unavailable Support Name Relationship Address Phone Yvette BENITO Next Of Kin [address] [phone] Yvette BENITO ECON [address] [phone] Ariela BENITO Next Of Kin [address] [place] [address] Insurance Providers: All historical and [...] PROVIDER ORGANIZATION (PPO) ANGEL Jan 22, 1998 [id number] CHAPARRO BENITO PATIENT MEDICARE (WNR) MEDICARE (M) PART A Mar 04, 2015 PART A [id number] CHAPARRO BENITO PATIENT MEDICARE (WNR) MEDICARE (M) PART B Mar 04, 2015 PART B [id number] CHAPARRO BENITO PATIENT [id number] FOR LIFE WNR Mar 04, 2015 FOR LIFE [id number] CHAPARRO BENITO PATIENT Selected Encounter This section includes the information on record at [place] for the Encounter. Date/Time Encounter Type Encounter Description Reason Provider Source Jul 13, 2021 08:48 AM Outpatient Encounter COMMUNITY CARE CONSULT IHE Encounter Template Text not used by [place] Assessments - Encounter Diagnoses No Data Provided for This Section Plan of Treatment: Future Appointments (+ 6 months) and Future Tests (+/- 45 day s) The Plan of Treatment section includes future care activities for the patient fr om all [facility] facilities. This section includes future appointments and fu ture orders which are active, pending or scheduled. Future Appointments This section includes appointments that were scheduled t o occur 6 months from the date of the Encounter, up to a maximum of 20 appointme nts. The data comes from all [facility]. Appointment Date/Time Appointment Type Appointment Facili ty Name Jul 30, 2021 10:00 AM AMBULATORY - NONE [facility] T, [facility] Aug 03, 2021 01:00 PM AMBULATORY - NONE [facility] T, [facility] Sep 02, 2021 11:00 AM AMBULATORY - MEDICINE [facility] Active, Pending, and Scheduled Orders This section [...] the Encounter. The data comes from all [facility]. Test Date/Time Test Type Test Details Facility Name Jun 02, 2021 04:23 PM Consult Order [facility] [id number] Cons Life Skills Educator's Choice [facility] ENCISO [facility] Surgical Procedures: All associated to the [...] Encounter. Date/Time Encounter Note(s) Provider Source Jul 13, 2021 08:48 AM ADMINISTRATIVE NOTE: LOCAL TITLE: [facility] ADMIN NOTE [place] STANDARD TITLE: ADMINISTRATIVE NOTE DATE OF NOTE: JUL 13, 2021@08:48 ENTRY DATE: JUL 13, 2021@08:49:18 AUTHOR: RACHAEL CASTILLO EXP COSIGNER: URGENCY: STATUS: COMPLETED COMMUNITY CARE ADMIN NOTE [place] Has ADDENDA Provider requesting codes D0274 and D1110 be added to consult. /dori/ RACHAEL CASTILLO MSA Signed: 07/13/2021 08:50 Receipt Acknowledged By: 07/13/2021 11:04 /dori/ JUANC WHITTEN RN, BSN OCC RN 07/13/2021 ADDENDUM STATUS: COMPLETED CODES REQUESTED ADDED TO CURRENT CONSULT. /dori/ JUAN C WHITTEN RN, BSN OCC RN Signed: 07/13/2021 11:06 Receipt Acknowledged By: 07/13/2021 11:28 /vane Cavanaugh [facility] RACHAEL TUTTLE [facility]
--- OUTSIDE RECORDS SUMMARY | 2021-08-07 18:53 | XMS REPORT | Encounter Summary ---
Author Author Department [facility] CHAPARRO reyes Organization Department [facility] Address Unknown Phone Unavailable Support Name Relationship Address Phone Yvette BENITO Next Of Kin [address] [phone] Yvette BENITO ECON [address] [phone] Ariela BENITO Next Of Kin [address] [place] [address] Insurance Providers: All historical and [...] PROVIDER ORGANIZATION (PPO) ANGEL Jan 22, 1998 [id number] CHAPARRO BENITO PATIENT MEDICARE (WNR) MEDICARE (M) PART A Mar 04, 2015 PART A [id number] CHAPARRO BENITO PATIENT MEDICARE (WNR) MEDICARE (M) PART B Mar 04, 2015 PART B [id number] CHAPARRO BENITO PATIENT [id number] FOR LIFE WNR Mar 04, 2015 FOR LIFE [id number] CHAPARRO BENITO PATIENT Selected Encounter This section includes the information on record at [place] for the Encounter. Date/Time Encounter Type Encounter Description Reason Provider Source May 14, 2021 08:00 AM Outpatient Encounter COMMUNITY CARE CONSULT IHE Encounter Template Text not used by VA Assessments - Encounter Diagnoses No Data Provided for This Section Plan of Treatment: Future Appointments (+ 6 months) and Future Tests (+/- 45 day s) The Plan of Treatment section includes future care activities for the patient fr om all [facility] facilities. This section includes future [...] 30, 2021 10:00 AM AMBULATORY - NONE [facility] T, [facility] Aug 03, 2021 01:00 PM AMBULATORY - NONE [facility] Sep 02, 2021 11:00 [...] the Encounter. The data comes from all [facility]. Test Date/Time Test Type Test Details Facility Name Jun 02, 2021 04:23 PM Consult Order [facility] [id number] Cons Railroad Car Repairman's Choice [facility] ENCISO [facility] Surgical Procedures: All associated to the [...] the Encounter. Date/Time Encounter Note(s) Provider Source May 14, 2021 08:00 AM NONVA CONSULT: LOCAL TITLE: COMMUNITY CARE CONSULT RESULTS NOTE [place] STANDARD TITLE: NONVA CONSULT DATE OF NOTE: MAY 14, 2021@08:00 ENTRY DATE: JUN 12, 2021@14:14:27 AUTHOR: ARABELLA OLIVER COSIGNER: URGENCY: STATUS: COMPLETED The following Non VA Care consult has been completed. See scanned document for report. NON VA Care Consult Results Other: COMMUNITY CARE-OPT/[facility]/05/14/21 /dori/ ARABELLA OLIVER SCANNING SPECIALIST Signed: 06/12/2021 14:16 ARABELLA OLIVER [facility]
--- OUTSIDE RECORDS SUMMARY | 2021-08-07 18:53 | XMS REPORT ---
Author Author Department [facility] CHAPARRO reyes Organization Department [facility] Address Unknown Phone Unavailable Support Name Relationship Address Phone Yvette BENITO Next Of Kin [address] [phone] Yvette BENITO ECON [address] [phone] Ariela BENITO Next Of Kin [address] [place] [address] Insurance Providers: All historical and [...] PROVIDER ORGANIZATION (PPO) ANGEL Jan 22, 1998 [id number] CHAPARRO BENITO PATIENT MEDICARE (WNR) MEDICARE (M) PART A Mar 04, 2015 PART A [id number] CHAPARRO BENITO PATIENT MEDICARE (WNR) MEDICARE (M) PART B Mar 04, 2015 PART B [id number] CHAPARRO BENITO PATIENT [id number] FOR LIFE WNR Mar 04, 2015 FOR LIFE [id number] CHAPARRO BENITO PATIENT Selected Encounter This section includes the information on record at [place] for the Encounter. Date/Time Encounter Type Encounter Description Reason Provider Source Jun 10, 2021 10:31 AM Outpatient Encounter COMMUNITY CARE CONSULT IHE Encounter Template Text not used by VA Assessments - Encounter Diagnoses No Data Provided for This Section Plan of Treatment: Future Appointments (+ 6 months) and Future Tests (+/- 45 day s) The Plan of Treatment section includes future care activities for the patient fr om all [facility] facilities. This section includes future appointments [...] 30, 2021 10:00 AM AMBULATORY - NONE [facility] T, [facility] Aug 03, 2021 01:00 PM AMBULATORY - NONE [facility] T, [facility] Sep 02, 2021 11:00 AM [...] the Encounter. The data comes from all [facility]. Test Date/Time Test Type Test Details Facility Name Jun 02, 2021 04:23 PM Consult Order [facility] [id number] Cons Optimization Engineer's Choice [facility] Surgical Procedures: All associated to [...] the Encounter. Date/Time Encounter Note(s) Provider Source Jun 10, 2021 10:31 AM NONVA NOTE: LOCAL TITLE: [facility]-REQUEST FOR SERVICE NOTE [place] STANDARD TITLE: NONVA NOTE DATE OF NOTE: JUN 10, 2021@10:31 ENTRY DATE: JUN 10, 2021@10:31:57 AUTHOR: SIA GTZ EXP COSIGNER: URGENCY: STATUS: COMPLETED COMMUNITY CARE-REQUEST FOR SERVICE NOTE [place] Has ADDENDA A Request for Service (RFS) form has been received which includes the following: RFS rec'd from: REBECA MCKEON D.O. [address] [facility]) [id number] Requesting Service: Dental DX Z01.20 Encounter for dental examination and cleaning without abnormal findings Last [facility] APPT: 05-19-21 Signed RFS order/Supporting Medical Documentation is available in [facility] /dori/ SIA GTZ RN Signed: 06/10/2021 10:33 Receipt Acknowledged By: 06/10/2021 13:49 /es/ MARCUS HERNANDEZ MSA [facility] 06/10/2021 ADDENDUM STATUS: COMPLETED DOCUMENTS ADDED /dori/ MARCUS DUMONT MSA [facility] Signed: 06/10/2021 13:51 Receipt Acknowledged By: 06/11/2021 11:27 /es/ JUAN C WHITTEN RN, BSN OCC RN 06/11/2021 ADDENDUM STATUS: COMPLETED DENTAL CHIEF, PLEASE REVIEW FOR APPROVAL AND PLACE NEW CONSULT. /dori/ JUAN C WHITTEN RN, BSN OCC RN Signed: 06/11/2021 11:28 Receipt Acknowledged By: * AWAITING SIGNATURE * JEM SALAZAR LISA K [facility]
--- OUTSIDE RECORDS SUMMARY | 2021-08-07 18:53 | XMS REPORT | Encounter Summary ---
[facility] Address Unknown Phone Unavailable Support Name Relationship Address Phone Yvette BENITO Next Of Kin [address] [phone] Yvette BENITO ECON [address] [phone] Ariela BENITO Next Of Kin [address] [place] [address] Insurance Providers: All historical and [...] Raphael's Name Patient's Relationship to Policy Raphael [id number] [place] PREFERRED PROVIDER ORGANIZATION (PPO) ANGEL Jan 22, 1998 [id number] CHAPARRO BENITO PATIENT MEDICARE (WNR) MEDICARE (M) PART A Mar 04, 2015 PART A [id number] CHAPARRO BENITO PATIENT MEDICARE (WNR) MEDICARE (M) PART B Mar 04, 2015 PART B [id number] CHAPARRO BENITO PATIENT [id number] FOR LIFE WNR Mar 04, 2015 FOR LIFE [id number] CHAPARRO BENITO PATIENT Selected Encounter This section includes the information on record at [place] for the Encounter. Date/Time Encounter Type Encounter Description Reason Provider Source May 19, 2021 08:00 AM Outpatient Encounter COMMUNITY CARE CONSULT IHE Encounter Template Text not used by [place] Assessments - Encounter Diagnoses No Data Provided for This Section Plan of Treatment: Future Appointments (+ 6 months) and Future Tests (+/- 45 day s) The Plan of Treatment section includes future care activities for the patient fr om all [facility] facilities. This section includes future [...] 30, 2021 10:00 AM AMBULATORY - NONE [facility] T, [facility] Aug 03, 2021 01:00 PM AMBULATORY - NONE [facility] T, [facility] Sep 02, 2021 [...] Jun 02, 2021 04:23 PM Consult Order [facility] [id number] Cons Forgesmith's Choice [facility] Surgical Procedures: All associated to the [...] Encounter. Date/Time Encounter Note(s) Provider Source May 19, 2021 08:00 AM NONVA CONSULT: LOCAL TITLE: COMMUNITY CARE CONSULT RESULTS NOTE [place] STANDARD TITLE: NONVA CONSULT DATE OF NOTE: MAY 19, 2021@08:00 ENTRY DATE: JUN 10, 2021@13:54:18 AUTHOR: MARCUS DUMONT EXP COSIGNER: URGENCY: STATUS: COMPLETED The following Non VA Care consult has been completed. See scanned document for report. NON VA Care Consult Results Other: COMMUNITY CARE-/ LINDA/05/19/21 /dori/ MARCUS DUMONT MSA [facility] Signed: 06/10/2021 13:56 MARCUS DUMONT [facility]
--- OUTSIDE RECORDS SUMMARY | 2021-08-07 18:53 | XMS REPORT | Encounter Summary ---
Author [facility] Address Unknown Phone Unavailable Support Name Relationship Address Phone Yvette BENITO Next Of Kin [address] 585270 Yvette BENITO ECON [address] [phone] Ariela BENITO Next Of Kin [address] [place] [address] Insurance Providers: All historical and [...] Raphael's Name Patient's Relationship to Policy Raphael [facility] [place] PREFERRED PROVIDER ORGANIZATION (PPO) ANGEL Jan 22, 1998 [id number] CHAPARRO BENITO PATIENT MEDICARE (WNR) MEDICARE (M) PART A Mar 04, 2015 PART A [id number] CHAPARRO BENITO PATIENT MEDICARE (WNR) MEDICARE (M) PART B Mar 04, 2015 PART B [id number] [phone] CHAPARRO BENITO PATIENT [id number] FOR LIFE WNR Mar 04, 2015 FOR LIFE [id number] CHAPARRO BENITO PATIENT Selected Encounter This section includes the information on record at [place] for the Encounter. Date/Time Encounter Type Encounter Description Reason Provider Source Jul 30, 2021 04:05 PM Outpatient Encounter COMMUNITY CARE CONSULT IHE Encounter Template Text not used by [place] Assessments - Encounter Diagnoses No Data Provided for This Section Plan of Treatment: Future Appointments (+ 6 months) and Future Tests (+/- 45 day s) The Plan of Treatment section includes future care activities for the patient fr om all [facility] facilities. This section includes future appointments and fu ture orders which are active, pending or scheduled. Future Appointments This section includes appointments that were scheduled t o occur 6 months from the date of the Encounter, up to a maximum of 20 appointme nts. The data comes from all [facility]. Appointment Date/Time Appointment Type Appointment Facili ty Name Aug 03, 2021 01:00 PM AMBULATORY - NONE [facility] T, VISN 15 Sep 02, 2021 11:00 AM AMBULATORY - MEDICINE [facility] Active, Pending, and Scheduled Orders This [...] the Encounter. The data comes from all [facility]. Test Date/Time Test Type Test Details Facility [...] Encounter Note(s) Provider Source Jul 30, 2021 04:05 PM NONVA NOTE: LOCAL TITLE: COMMUNITY CARE-REQUEST FOR SERVICE NOTE [place] STANDARD TITLE: NONVA NOTE DATE OF NOTE: JUL 30, 2021@16:05 ENTRY DATE: JUL 30, 2021@16:05:47 AUTHOR: JUAN C WHITTEN COSIGNER: URGENCY: STATUS: COMPLETED COMMUNITY CARE-REQUEST FOR SERVICE NOTE [place] Has ADDENDA A Request for Service (RFS) form has been received which includes the following: Name of ordering provider: [facility] CHRIS DEL [facility]IO Specific type(s) of service(s) ordered on RFS D4341 X4 D2740 #24,25 IS SCHEDULED 09/02/21 DENTAL CHIEF, PLEASE REVIEW FOR APPROVAL AND PLACE NEW CONSULT. /es/ JUAN C WHITTEN RN, BSN OCC RN Signed: 07/30/2021 16:06 07/31/2021 ADDENDUM STATUS: COMPLETED RFS attached to the note. /es/ RACHAEL CASTILLO MSA Signed: 07/31/2021 08:49 Receipt Acknowledged By: 07/31/2021 08:54 /es/ JUAN C WHITTEN RN, BSN OCC RN * AWAITING SIGNATURE * JEM SALAZAR JESSICA R [facility]
--- OUTSIDE RECORDS SUMMARY | 2021-08-07 18:53 | XMS REPORT | Encounter Summary ---
Author [facility] Department [facility] Address Unknown Phone Unavailable Support Name Relationship Address Phone Yvette BENITO Next Of Kin [address] [id number] Yvette BENITO ECON [address] [phone] Ariela BENITO Next Of Kin [address] [place] [address] Insurance Providers: All historical and [...] Raphael's Name Patient's Relationship to Policy Raphael [facility] [place] PREFERRED PROVIDER ORGANIZATION (PPO) ANGEL Jan 22, 1998 [id number] CHAPARRO BENITO PATIENT MEDICARE (WNR) MEDICARE (M) PART A Mar 04, 2015 PART A [id number] CHAPARRO BENITO PATIENT MEDICARE (WNR) MEDICARE (M) PART B Mar 04, 2015 PART B [id number] [phone] CHAPARRO BENITO PATIENT [id number] FOR LIFE WNR Mar 04, 2015 FOR LIFE [id number] CHAPARRO BENITO PATIENT Selected Encounter This section includes the information on record at [place] for the Encounter. Date/Time Encounter Type Encounter Description Reason Provider Source Jul 14, 2021 01:38 PM Outpatient Encounter COMMUNITY CARE CONSULT IHE Encounter Template Text not used by [place] Assessments - Encounter Diagnoses No Data Provided for This Section Plan of Treatment: Future Appointments (+ 6 months) and Future Tests (+/- 45 day s) The Plan of Treatment section includes future care activities for the patient fr om all [facility] facilities. This section includes future appointments and [...] 30, 2021 10:00 AM AMBULATORY - NONE [facility] T, [facility]N 15 Aug 03, 2021 01:00 PM AMBULATORY - NONE [facility], [facility] Sep 02, 2021 11:00 AM [...] the Encounter. The data comes from all [facility]. Test Date/Time Test Type Test Details Facility Name Jun 02, 2021 04:23 PM Consult Order [facility] [id number] Cons Tight Rope Walker's Choice [facility]US ENCISO [facility] Surgical Procedures: All associated to the [...] Encounter. Date/Time Encounter Note(s) Provider Source Jul 14, 2021 01:39 PM NONVA NOTE: LOCAL TITLE: [facility]-REQUEST FOR SERVICE NOTE [place] STANDARD TITLE: NONVA NOTE DATE OF NOTE: JUL 14, 2021@13:39 ENTRY DATE: JUL 14, 2021@13:40:05 AUTHOR: SONIA GARCIA EXP COSIGNER: URGENCY: STATUS: COMPLETED A Request for Service (RFS) form has been received which includes the following: Name of ordering provider: Dr. Ventura Shook MD Telephone number of ordering provider: [phone] ICD-Dx code listed on RFS: None listed Specific type(s) of service(s) ordered on RFS Continuation of Urology Care [facility] 01-04-2022 Signed RFS order/Supporting Medical Documentation will be available in [facility] PLEASE UPLOAD DOCUMENTS TO [facility] FOR REVIEW. Faxed [phone] to provider to include ICD10 code on RFS and resubmit approximately 1 month prior to next appointment. /dori/ SONIA GARCIA RN, BSN Signed: 07/14/2021 13:50 SONIA GARCIA [facility]
--- OUTSIDE RECORDS SUMMARY | 2021-08-07 18:53 | XMS REPORT ---
Author Author Department [facility] CHAPARRO reyes Organization Department [facility] Address Unknown Phone Unavailable Support Name Relationship Address Phone Yvette BENITO Next Of Kin [address] [phone] Yvette BENITO ECON [address] [phone] Ariela BENITO Next Of Kin [address] [place] [address] Insurance Providers: All historical and [...] PROVIDER ORGANIZATION (PPO) ANGEL Jan 22, 1998 [id number] CHAPARRO BENITO PATIENT MEDICARE (WNR) MEDICARE (M) PART A Mar 04, 2015 PART A [id number] [place]AP[place]O BENITO PATIENT MEDICARE (WNR) MEDICARE (M) PART B Mar 04, 2015 PART B [id number] CHAPARRO BENITO PATIENT [id number] FOR LIFE WNR Mar 04, 2015 FOR LIFE [id number] CHAPARRO BENITO PATIENT Selected Encounter This section includes the information on record at [place] for the Encounter. Date/Time Encounter Type Encounter Description Reason Provider Source May 20, 2021 03:49 PM Outpatient Encounter COMMUNITY CARE CONSULT IHE [...] appointme nts. The data comes from all [facility]. Appointment Date/Time Appointment Type Appointment Facili ty Name Jul 30, 2021 10:00 AM AMBULATORY - NONE [facility], [facility] Aug 03, 2021 01:00 PM AMBULATORY - NONE [facility] Sep 02, 2021 [...] the Encounter. The data comes from all [facility]. Test Date/Time Test Type Test Details Facility Name Jun 02, 2021 04:23 PM Consult Order [facility] [id number] Cons Sheet Sewer's Choice LAZARUS ENCISO [facility] Surgical Procedures: All associated to the [...] Encounter. Date/Time Encounter Note(s) Provider Source May 20, 2021 03:55 PM NONVA NOTE: LOCAL TITLE: [facility]-REQUEST FOR SERVICE NOTE [place] STANDARD TITLE: NONVA NOTE DATE OF NOTE: MAY 20, 2021@15:55 ENTRY DATE: MAY 20, 2021@15:55:27 AUTHOR: SIA GTZ EXP COSIGNER: URGENCY: STATUS: COMPLETED COMMUNITY CARE-REQUEST FOR SERVICE NOTE [place] Has ADDENDA A Request for Service (RFS) form has been received which includes the following: RFS rec'd from: REBECA MCKEON D.O. [address] [facility] [address] Requesting Service: Dental DX Z01.20 Encounter for dental examination and cleaning without abnormal findings Last [facility] APPT: 05-19-21 Signed RFS order/Supporting Medical Documentation is available in [facility] /dori/ SIA GTZ RN Signed: 05/20/2021 15:56 Receipt Acknowledged By: 05/21/2021 08:46 /dori/ [facility] 05/21/2021 ADDENDUM STATUS: COMPLETED Adding OCC RN for consult placement. /es/ LUPIS DE LEÓN [facility] AMSA Signed: 05/21/2021 08:58 Receipt Acknowledged By: 05/21/2021 10:35 /es/ JUAN C WHITTEN RN, BSN OCC RN 05/21/2021 ADDENDUM STATUS: COMPLETED DENTAL CHIEF, PLEASE REVIEW FOR APPROVAL AND PLACE NEW CONSULT. /dori/ JUAN C WHITTEN RN, BSN OCC RN Signed: 05/21/2021 10:36 Receipt Acknowledged By: * AWAITING SIGNATURE * JEM SALAZAR LISA K [facility]ERT J[facility] DOLE [facility] May 20, 2021 03:49 PM NONVA NOTE: LOCAL TITLE: COMMUNITY CARE-REQUEST FOR SERVICE NOTE [place] STANDARD TITLE: NONVA NOTE DATE OF NOTE: MAY 20, 2021@15:49 ENTRY DATE: MAY 20, 2021@15:50:04 AUTHOR: SIA GTZ EXP COSIGNER: URGENCY: STATUS: COMPLETED COMMUNITY CARE-REQUEST FOR SERVICE NOTE [place] Has ADDENDA A Request for Service (RFS) form has been received which includes the following: RFS rec'd from: REBECA MCKEON D.O. 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 /es/ LUPIS DE LEÓN OCC AMSA Signed: 05/21/2021 08:53 Receipt Acknowledged By: 05/21/2021 09:12 /es/ NAUN PERKINS RN 05/21/2021 ADDENDUM STATUS: COMPLETED DST: Drive Time Request: Individual Psychotherapy, for coping management skills. RFS and progress notes scanned in [facility] for review, Image ID: [id number]. Alerting Dr. Cifuentes for review. /es/ NAUN RESTRPEO RN Signed: 05/21/2021 09:14 Receipt Acknowledged By: 05/28/2021 11:25 /es/ Chepe moulton, Ph.D. Staff Psychologist 05/28/2021 ADDENDUM STATUS: COMPLETED Request reviewed and approved based on drive time eligibility. /es/ Chepe Cifuentes, Ph.D. Staff Psychologist Signed: 05/28/2021 11:26 SIA GTZ [facility]
--- OUTSIDE RECORDS SUMMARY | 2021-08-07 18:54 | XMS REPORT | Encounter Summary ---
[facility] Organization [facility] Address Unknown Phone Unavailable Support Name Relationship Address Phone Yvette BENITO Next Of Kin [address] [phone] Yvette BENITO ECON [address] [phone] Ariela BENITO Next Of Kin [address] [place] [address] Insurance Providers: All historical and [...] PROVIDER ORGANIZATION (PPO) ANGEL Jan 22, 1998 [id number] [place]O BENITO PATIENT MEDICARE (WNR) MEDICARE (M) PART A Mar 04, 2015 PART A [id number] CHAPARRO BENITO PATIENT MEDICARE (WNR) MEDICARE (M) PART B Mar 04, 2015 PART B [id number] CHAPARRO BENITO PATIENT [id number] FOR LIFE WNR Mar 04, 2015 FOR LIFE [id number] CHAPARRO BENITO PATIENT Selected Encounter This section includes the information on record at [place] for the Encounter. Date/Time Encounter Type Encounter Description Reason Provider Source Oct 16, 2020 03:54 PM QNHP OL DIG ASSMT&MGMT 11-20 CLINICAL PHAR RORY ICD-10-CM F52.21 Male erectile disorder with Provider Comments: Male Erectile Disorder CALI CASTREJON Encounter Template Text not used by [place] Assessments - Encounter Diagnoses This section includes the primary and secondary diag noses documented for the Encounter. Date/Time Primary/Secondary Diagnosis Diagnosis Name Provider Source Oct 16, 2020 03:57 PM PRIMARY Male erectile disorder TIERRA CASTREJON [facility] Plan of Treatment: Future Appointments (+ 6 months) and Future Tests (+/- 45 day s) The Plan of Treatment section includes future care activities for the patient fr om all [place] treatment facilities. This section includes future appointments and fu ture orders which are active, pending or scheduled. Future Appointments This section includes appointments that were scheduled t o occur 6 months from the date of the Encounter, up to a maximum of 20 appointme nts. The data comes from all [place] treatment facilities. Appointment Date/Time Appointment Type Appointment Facili ty Name Feb 26, 2021 02:30 PM AMBULATORY - NONE [facility], [facility] 15 Mar 02, 2021 01:00 PM [facility] - [facility] Surgical Procedures: All associated to the encounter This section includes all Surgical Procedures and Surgical Procedure Notes assoc iated to the Encounter. Surgical Procedures This section includes all Surgical Procedures associated to the Encounter. Surgical Procedure Date/Time Procedure Procedure Type Procedure Qualifiers Provider Source Oct 16, 2020 03:54 PM QNHP OL DIG EM SVC 11-20MIN QNHP OL DIG SMT&MGMT 11-20 CALI CASTREJON [facility] Surgical Notes There are no notes associated with this procedure. Lab Results: +/- 30 days of the [...] Encounter. Date/Time Encounter Note(s) Provider Source Oct 16, 2020 03:54 PM PHARMACY MEDICATION MGT CONS ULT: LOCAL TITLE: [place]-PRIOR APPROVAL DRUG REQUESTS STANDARD TITLE: PHARMACY MEDICATION MGT CONSULT DATE OF NOTE: OCT 16, 2020@15:54 ENTRY DATE: OCT 16, 2020@15:54:41 AUTHOR: CALI CASTREJON EXP COSIGNER: URGENCY: STATUS: COMPLETED The medical record has been reviewed with regard to this prior authorization drug request. This prior authorization drug request originated with a [facility] provider. Medication requested: TADALAFIL 5MG TAB Medication indication: erectile dysfunction Medical history relevant to this request: with ED and has failed sildenafil. The request is approved - A documented therapeutic failure of th e preferred formulary alternative(s) exists time spent 15 min NF approved. Alerting CCRx team to proceed. /dori/ Cali Castrejon PharmD, BCPS, BCGP Clinical Surface Supervisor Signed: 10/16/2020 15:56 Receipt Acknowledged By: 10/16/2020 16:01 /dori/ JUAN C PENNINGTON ELEMENTARY TUTOR 10/16/2020 16:05 /dori/ ROCKY FUENTES Clinical Pharmacist CALI CASTREJON [facility]
--- OUTSIDE RECORDS SUMMARY | 2021-08-07 18:54 | XMS REPORT | Encounter Summary ---
[facility] Department of [facility] Address Unknown Phone Unavailable Support Name Relationship Address Phone Yvette BENITO Next Of Kin [address] [phone] Yvette BENITO ECON [address] [phone] Ariela BNEITO Next Of Kin [address] [place] [address] Insurance Providers: All historical and [...] Raphael's Name Patient's Relationship to Policy Raphael BC BS [place] PREFERRED PROVIDER ORGANIZATION (PPO) ANGEL Jan 22, 1998 [id number] CHAP[place]O BENITO PATIENT MEDICARE (WNR) MEDICARE (M) PART A Mar 04, 2015 PART A [id number] CHAP[place]O BENITO PATIENT MEDICARE (WNR) MEDICARE (M) PART B Mar 04, 2015 PART B [id number] CHAPARRO BENITO PATIENT [id number] FOR LIFE WNR Mar 04, 2015 FOR LIFE [id number] CHAPARRO BENITO PATIENT Selected Encounter This section includes the information on record at [place] for the Encounter. Date/Time Encounter Type Encounter Description Reason Provider Source Oct 14, 2020 08:00 AM Outpatient Encounter ADMIN PAT ACTIVTIES (MARCOSNO NCT) IHE Encounter Template Text not used by [place] Assessments - Encounter Diagnoses No Data Provided for This Section Plan of Treatment: Future Appointments (+ 6 months) and Future Tests (+/- 45 day s) The Plan of Treatment section includes future care activities for the patient fr om all [place] treatment facilities. This section includes future appointments and fu ture orders which are active, pending or scheduled. Future Appointments This section includes appointments that were scheduled t o occur 6 months from the date of the Encounter, up to a maximum of 20 appointme nts. The data comes from all [place] treatment facilities. Appointment Date/Time Appointment Type Appointment Facili ty Name Feb 26, 2021 02:30 PM AMBULATORY - NONE [facility] 15 Mar 02, 2021 01:00 PM AMBULATORY [...] Encounter. Date/Time Encounter Note(s) Provider Source Oct 14, 2020 08:00 AM NONVA CONSULT: LOCAL TITLE: COMMUNITY CARE CONSULT RESULTS NOTE [place] STANDARD TITLE: NONVA CONSULT DATE OF NOTE: OCT 14, 2020@08:00 ENTRY DATE: DEC 29, 2020@08:00:08 AUTHOR: ARABELLA OLIVER COSIGNER: URGENCY: STATUS: COMPLETED The following Non VA Care consult has been completed. See scanned document for report. NON VA Care Consult Results Other: COMMUNITY CARE-URO/VIA CHRISTOPH LOUIN/10/14/20 /dori/ ARABELLA OLIVER SCANNING SPECIALIST Signed: 12/29/2020 08:00 ARABELLA OLIVER [facility]
--- OUTSIDE RECORDS SUMMARY | 2021-08-07 18:54 | XMS REPORT | Encounter Summary ---
Author Author Department [facility] Organization Department of [facility] Address Unknown Phone Unavailable Support Name Relationship Address Phone Yvette BENITO Next Of Kin [address] [phone] Yvette BENITO ECON [address] [phone] Ariela BENITO Next Of Kin [address] [place] [address] Insurance Providers: All historical and [...] PROVIDER ORGANIZATION (PPO) ANGEL Jan 22, 1998 [id number] CHAP[place]O BENITO PATIENT MEDICARE (WNR) MEDICARE (M) PART A Mar 04, 2015 PART A [id number] [place]AP[place]O BENITO PATIENT MEDICARE (WNR) MEDICARE (M) PART B Mar 04, 2015 PART B [id number] CHAPARRO BENITO PATIENT [id number] FOR LIFE WNR Mar 04, 2015 FOR LIFE [id number] CHAPARRO BENITO PATIENT Selected Encounter This section includes the information on record at [place] for the Encounter. Date/Time Encounter Type Encounter Description Reason Provider Source Oct 28, 2020 10:28 AM QNHP OL DIG ASSMT&MGMT 11-20 CLINICAL PHAR RORY ICD-10-CM I50.9 Heart failure, unspecified with Provider Comments: Heart Failure,Unspec NAYLA ELY Encounter Template Text not used by [place] Assessments - Encounter Diagnoses This section includes the primary and secondary diag noses documented for the Encounter. Date/Time Primary/Secondary Diagnosis Diagnosis Name Provider Source Oct 28, 2020 10:31 AM PRIMARY Heart failure, unspecified Nicho ELY [facility] Plan of Treatment: Future Appointments (+ 6 months) and Future Tests (+/- 45 day s) The Plan of Treatment section includes future care activities for the patient fr om all [place] treatment facilities. This section includes future appointments and fu ture orders which are active, pending or scheduled. Future Appointments This section includes appointments that were scheduled t o occur 6 months from the date of the Encounter, up to a maximum of 20 appointme nts. The data comes from all [place] treatment facilities. Appointment Date/Time Appointment Type Appointment Facili ty Name Feb 26, 2021 02:30 PM AMBULATORY - NONE [facility] 15 Mar 02, 2021 01:00 PM [facility]ORY [facility] Surgical Procedures: All associated to the encounter This section includes all Surgical Procedures and Surgical Procedure Notes assoc iated to the Encounter. Surgical Procedures This section includes all Surgical Procedures associated to the Encounter. Surgical Procedure Date/Time Procedure Procedure Type Procedure Qualifiers Provider Source Oct 28, 2020 10:28 AM QNHP OL DIG EM SVC 11-20MIN QNHP OL DIG SMT&MGMT 11-20 NAYLA ELY [facility] Surgical Notes There are no notes [...] Encounter. Date/Time Encounter Note(s) Provider Source Oct 28, 2020 10:29 AM PHARMACY MEDICATION MGT CONS ULT: LOCAL TITLE: [place]-PRIOR APPROVAL DRUG REQUESTS STANDARD TITLE: PHARMACY MEDICATION MGT CONSULT DATE OF NOTE: OCT 28, 2020@10:29 ENTRY DATE: OCT 28, 2020@10:29:09 AUTHOR: NAYLA ELY EXP COSIGNER: URGENCY: STATUS: COMPLETED The medical record has been reviewed with regard to this prior authorization drug request. This prior authorization drug request originated with a [facility] provider. Medication requested: SACUBITRIL 49MG/VALSARTAN 51MG TAB Medication indication: HFrEF Medical history relevant to this request: Sylva with HFrEF with EF of 40% and is currently on goal directed therapy; is documented as NYHA class III and was on lisinopril before converting to entresto The request is approved - No formulary-preferred alternative Sylva meets CFU for Entresto. ok to proceed with rx for half tablet dosing. time spent: 15 min /dori/ NAYLA ELY PHARMACOECONOMIST Signed: 10/28/2020 10:31 Receipt Acknowledged By: * AWAITING SIGNATURE * JUAN C SAAB * AWAITING SIGNATURE * ROCKY FUENTES KENNETH J [facility]ERT J. DOLE [facility]
--- OUTSIDE RECORDS SUMMARY | 2021-08-07 18:54 | XMS REPORT ---
Author Author Department [facility] Organization Department of [facility] Address Unknown Phone Unavailable Support Name Relationship Address Phone Yvette BENITO Next Of Kin [address] [phone] Yvette BENITO ECON [address] [phone] Ariela BENITO Next Of Kin [address] [place] [address] Insurance Providers: All historical and [...] PROVIDER ORGANIZATION (PPO) ANGEL Jan 22, 1998 [id number] CHAP[place]O BENITO PATIENT MEDICARE (WNR) MEDICARE (M) PART A Mar 04, 2015 PART A [id number] CHAP[place]O BENITO PATIENT MEDICARE (WNR) MEDICARE (M) PART B Mar 04, 2015 PART B [id number] CHAPARRO BENITO PATIENT [id number] FOR LIFE WNR Mar 04, 2015 FOR LIFE [id number] CHAPARRO BENITO PATIENT Selected Encounter This section includes the information on record at [place] for the Encounter. Date/Time Encounter Type Encounter Description Reason Provider Source Oct 20, 2020 08:00 AM Outpatient Encounter ADMIN PAT ACTIVTIES (MARCOSNO NCT) IHE Encounter Template Text not used by [place] Assessments - Encounter Diagnoses No Data Provided for This Section Plan of Treatment: Future Appointments (+ 6 months) and Future Tests (+/- 45 day s) The Plan of Treatment section includes future care activities for the patient fr om all [place] treatment facilities. This section includes future appointments and fu ture orders which are active, pending or scheduled. Future Appointments This section includes appointments that were scheduled t o occur 6 months from the date of the Encounter, up to a maximum of 20 appointme nts. The data comes from all [place] treatment facilities. Appointment Date/Time Appointment Type Appointment Facili ty Name Feb 26, 2021 02:30 PM AMBULATORY - NONE [facility] [place] 15 Mar 02, 2021 01:00 PM AMBULATORY [...] Encounter. Date/Time Encounter Note(s) Provider Source Oct 20, 2020 08:00 AM NONVA CONSULT: LOCAL TITLE: COMMUNITY CARE CONSULT RESULTS NOTE [place] STANDARD TITLE: NONVA CONSULT DATE OF NOTE: OCT 20, 2020@08:00 ENTRY DATE: DEC 29, 2020@07:53:49 AUTHOR: ARABELLA OLIVER COSIGNER: URGENCY: STATUS: COMPLETED The following Non VA Care consult has been completed. See scanned document for report. NON VA Care Consult Results Other: COMMUNITY CARE-URO/DEANNA BARRETT MD/10/20/20 /dori/ ARABELLA OLIVER SCANNING SPECIALIST Signed: 12/29/2020 07:54 ARABELLA OLIVER [facility]
--- OUTSIDE RECORDS SUMMARY | 2021-08-07 18:54 | XMS REPORT | Encounter Summary ---
Author [facility] Organization Department of [facility] Address Unknown Phone Unavailable Support Name Relationship Address Phone Yvette BENITO Next Of Kin [address] [phone] Yvette BENITO ECON [address] [phone] Ariela BENITO Next Of Kin [address] [place] [address] Insurance Providers: All historical and [...] Raphael's Name Patient's Relationship to Policy Raphael [facility] [place] PREFERRED PROVIDER ORGANIZATION (PPO) ANGEL Jan 22, 1998 [id number] CHAPARRO BENITO PATIENT MEDICARE (WNR) MEDICARE (M) PART A Mar 04, 2015 PART A [id number] CHAPARRO BENITO PATIENT MEDICARE (WNR) MEDICARE (M) PART B Mar 04, 2015 PART B [id number] CHAPARRO BENITO PATIENT [id number] FOR LIFE WNR Mar 04, 2015 FOR LIFE [id number] CHAPARRO BENITO PATIENT Selected Encounter This section includes the information on record at [place] for the Encounter. Date/Time Encounter Type Encounter Description Reason Provider Source Mar 26, 2021 08:40 AM Outpatient Encounter COMMUNITY CARE CONSULT KORI ZAMORA Encounter Template Text not used by [place] Assessments - Encounter Diagnoses No Data Provided for This Section Plan of Treatment: Future Appointments (+ 6 months) and Future Tests (+/- 45 day s) The Plan of Treatment section includes future care activities for the patient fr om all [place] treatment facilities. This section includes future appointments and fu ture orders which are active, pending or scheduled. Future Appointments This section includes appointments that were scheduled t o occur 6 months from the date of the Encounter, up to a maximum of 20 appointme nts. The data comes from all [facility]. Appointment Date/Time Appointment Type Appointment Facili ty Name May 14, 2021 10:45 AM AMBULATORY - NONE [facility] T, [facility] 15 Jul 30, 2021 10:00 AM AMBULATORY - NONE [facility] T, [facility] Aug 03, 2021 01:00 PM AMBULATORY - NONE [facility] T, [facility] 15 Sep 02, 2021 11:00 AM AMBULATORY - MEDICINE [facility] Surgical Procedures: All associated to the encounter No Data Provided for This Section Lab Results: +/- 30 days of the encounter This section includes the Chemistry and Hematology Lab R esults on record with [place] for the patient. Radiology Reports and Pathology Report s are provided separately, in subsequent sections. Lab Results This section contains the Chemistry/Hematology Results petar t were resulted 30 days before or 30 days after the date of the Encounter. Date/Time Source Result Type Result - Unit Interpretation Reference Range Comment Mar 02, 2021 01:[address] [facility] LIPID PROFILE(HDL,TRIG,CHO L,LDL) Specimen Type: PLASMA Comment: Race unknown, if multiply result by 1.210 Ordering Provider: CHAPARRO LEWIS Report Released Date/Time: Sep 02, 2020 11:39 AM Reporting Lab: [facility] [address] [facility] [address] Performing Lab: [facility] [address] [facility] [address] CHOLESTEROL 128 mg/dL 0-200 TRIGS 118 mg/dL 0-150 HDL-CHOLESTEROL 35 mg/dL L > 40 LDL (CALC) 69.0 mg/dL Mar 02, 2021 01:[address] [facility] BASIC METABOLIC PANEL Spe cimen Type: PLASMA Comment: Race unknown, if multiply result by 1.210 Ordering Provider: CHAPARRO LEWIS Report Released Date/Time: Sep 02, 2020 11:39 AM Reporting Lab: [facility] [address] [facility] [address] Performing Lab: [facility] [place] [address] [address] *CREATININE 0.80 mg/dL 0.70-1.30 UREA NITROGEN mg/dL [...] 2020 11:39 AM Reporting Lab: [facility] [place] [address] [facility] [address] Performing Lab: [facility] [place] [address] [facility] [address] HEMOGLOBIN A1C 7.0 % H 4.0-6.0 Mar 02, 2021 01:34 PM [facility] MICROALBUMIN (,[place]) RANDO M URINE Specimen Type: URINE No comment entered. Ordering Provider: CHAPARRO LEWIS Report Released Date/Time: Sep 02, 2020 11:39 AM Reporting Lab: [facility] [place] [address] [facility] [address] Performing Lab: [facility] [place] [address] [facility] [address] *MICROALBUMIN,RAND 23 ug/mL 0-29 *MICROALB/CREAT 22 mcg/mg cr 0-29 *UR CREATININE 104.7 mg/dL Mar 02, 2021 01:34 PM [facility] ALANINE AMINOTRANSFERASE Specimen Type: PLASMA Comment: Race unknown, if multiply result by 1.210 Ordering Provider: CHAPARRO LEWIS Report Released Date/Time: Sep 02, 2020 11:39 AM Reporting Lab: [facility] [address] [facility] [address] Performing Lab: [facility] [address] [facility] [address] ALANINE AMINOTRANSFERASE 18 U/L 8-40 Mar 02, 2021 01:34 PM [facility] ASPARTATE TRANSAMINASE Sp ecimen Type: PLASMA Comment: Race unknown, if multiply result by 1.210 Ordering Provider: CHAPARRO LEWIS Report Released Date/Time: Sep 02, 2020 11:39 AM Reporting Lab: [facility] [address] [facility] [address] Performing Lab: [facility] [address] [facility] [address] ASPARTATE TRANSAMINASE 20 U/L 5-34 Vital Signs: [...] Encounter. Date/Time Encounter Note(s) Provider Source Mar 26, 2021 08:40 AM LETTERS: LOCAL TITLE: [facility]-REQUEST FOR SERVICES (RFS) LETTER STANDARD TITLE: LETTERS DATE OF NOTE: MAR 26, 2021@08:40 ENTRY DATE: MAR 26, 2021@08:40:16 AUTHOR: KORI ZAMORA COSIGNER: URGENCY: STATUS: COMPLETED RANDI BRUNNER III [address] Ernesto [address] [facility] [address] Dear Provider, [place] Information: Patient Name: CHAPARRO BENITO Date of : Jul The Office of Count includes the [facility] has received the request referral to pain management for lumbar and knee pain from you for services that were not originally authorized in the [facility] for this . Upon review, the following determination has been made: Service has been denied: Care has been deemed clinically inappropriate. Reason: unable to process request unless recent MRI of lumbar is completed and all knee x rays reports are attached and included in the RFS. Should you have questions, please contact us at [place] [phone] to speak with a patient youth services specialist. As a reminder, if applicable, return medical records within 30 days for routine services. Sincerely, Office of community Care // Kori Zamora RN, BSN Signed: 03/26/2021 08:47 KORI ZAMORA [facility]
--- OUTSIDE RECORDS SUMMARY | 2021-08-07 18:54 | XMS REPORT | Encounter Summary ---
Author Author [facility] Organization Department [facility] Address Unknown Phone Unavailable Support Name Relationship Address Phone Yvette BENITO Next Of Kin [address] [phone] Yvette BENITO ECON [address] [phone] Ariela BENITO Next Of Kin [address] [place] [address] Insurance Providers: All historical and [...] Raphael's Name Patient's Relationship to Policy Raphael [facility] [place] PREFERRED PROVIDER ORGANIZATION (PPO) ANGEL Jan 22, 1998 [id number] CHAPARRO BENITO PATIENT MEDICARE (WNR) MEDICARE (M) PART A Mar 04, 2015 PART A [id number] [phone] CHAPARRO BENITO PATIENT MEDICARE (WNR) MEDICARE (M) PART B Mar 04, 2015 PART B [id number] [phone] CHAPARRO BENITO PATIENT [id number] FOR LIFE WNR Mar 04, 2015 FOR LIFE [id number] CHAPARRO BENITO PATIENT Selected Encounter This section includes the information on record at [place] for the Encounter. Date/Time Encounter Type Encounter Description Reason Provider Source Mar 25, 2021 08:54 AM Outpatient Encounter COMMUNITY CARE CONSULT IHE Encounter Template Text not used by [place] Assessments - Encounter Diagnoses No Data Provided for This Section Plan of Treatment: Future Appointments (+ 6 months) and Future Tests (+/- 45 day s) The Plan of Treatment section includes future care activities for the patient fr om all [place] treatment facilities. This section includes future appointments and fu ture orders which are active, pending or scheduled. Future Appointments This section includes appointments that were scheduled t o occur 6 months from the date of the Encounter, up to a maximum of 20 appointme nts. The data comes from all [place] treatment facilities. Appointment Date/Time Appointment Type Appointment Facili ty Name May 14, 2021 10:45 AM AMBULATORY - NONE [facility] T, [facility]ISN 15 Jul 30, 2021 10:00 AM AMBULATORY - NONE [facility] T, [facility] Aug 03, 2021 01:00 PM AMBULATORY - NONE [facility] T, [facility] Sep 02, 2021 11:00 AM AMBULATORY - MEDICINE [facility] Surgical Procedures: All associated to the encounter No Data Provided for This Section Lab Results: +/- 30 days of the encounter This section includes the Chemistry and Hematology Lab R esults on record with [place] for the patient. Radiology Reports and Pathology Report s are provided separately, in subsequent sections. Lab Results This section contains the Chemistry/Hematology Results petar t were resulted 30 days before or 30 days after the date of the Encounter. Date/Time Source Result Type Result - Unit Interpretation Reference Range Comment Mar 02, 2021 01:34 PM [facility] LIPID PROFILE(HDL,TRIG,CHO L,LDL) Specimen Type: PLASMA Comment: Race unknown, if multiply result by 1.210 Ordering Provider: CHAPARRO LEWIS Report Released Date/Time: Sep 02, 2020 11:39 AM Reporting Lab: [facility] [address] [facility] [address] Performing Lab: [facility] [address] [facility] [address] CHOLESTEROL 128 mg/dL 0-200 TRIGS 118 mg/dL 0-150 HDL-CHOLESTEROL 35 mg/dL L > 40 LDL (CALC) 69.0 mg/dL Mar 02, 2021 01:34 PM [facility] BASIC METABOLIC PANEL Spe cimen Type: PLASMA Comment: Race unknown, if multiply result by 1.210 Ordering Provider: JOSHUA,CHAPARRO A Report Released Date/Time: Sep 02, 2020 11:39 AM Reporting Lab: [facility] [address] [facility] [address] Performing Lab: [facility] [place] [address] [facility] [address] *CREATININE 0.80 mg/dL 0.70-1.30 UREA NITROGEN mg/dL 17 mg/dL 9-25 GLUCOSE 105 mg/dL H 70-99 SODIUM 141 mEq/L 136-145 POTASSIUM 4.4 mEq/L 3.5-5 CALCIUM (mg/dL) 10.7 mg/dL H 8.4-10.2 ANION GAP 11.1 8-16 CHLORIDE 107 mEq/L 98-107 CO2 23.0 mEq/L 22-31 EGFR 94.5 Mar 02, 2021 01:34 PM [facility] HEMOGLOBIN A1C Specimen T ype: BLOOD No comment entered. Ordering Provider: CHAPARRO LEWIS Report Released Date/Time: Sep 02, 2020 11:39 AM Reporting Lab: [facility] [place] [address] [facility] [address] Performing Lab: [facility] [place] [address] [facility] [address] HEMOGLOBIN A1C 7.0 % H 4.0-6.0 Mar 02, 2021 01:34 PM [facility] MICROALBUMIN ([place], [place]) RANDO M URINE Specimen Type: URINE No comment entered. Ordering Provider: CHAPARRO LEWIS Report Released Date/Time: Sep 02, 2020 11:39 AM Reporting Lab: [facility] [address] [facility] [address] Performing Lab: [facility] [address] [facility] [address] *MICROALBUMIN,RAND 23 ug/mL 0-29 *MICROALB/CREAT 22 mcg/mg cr 0-29 *UR CREATININE 104.7 mg/dL Mar 02, 2021 01:34 PM [facility] ALANINE AMINOTRANSFERASE Specimen Type: PLASMA Comment: Race unknown, if multiply result by 1.210 Ordering Provider: CHAPARRO LEWIS Report Released Date/Time: Sep 02, 2020 11:39 AM Reporting Lab: [facility] [address] [facility] [address] Performing Lab: [facility] [address] [facility] [address] ALANINE AMINOTRANSFERASE 18 U/L 8-40 Mar 02, 2021 01:34 PM [facility] ASPARTATE TRANSAMINASE Sp ecimen Type: PLASMA Comment: Race unknown, if multiply result by 1.210 Ordering Provider: CHAPARRO LEWIS Report Released Date/Time: Sep 02, 2020 11:39 AM Reporting Lab: [facility] [address] [facility] [address] Performing Lab: [facility] [address] [facility] [address] ASPARTATE TRANSAMINASE 20 U/L 5-34 Vital Signs: [...] Encounter. Date/Time Encounter Note(s) Provider Source Mar 25, 2021 08:54 AM NONVA NOTE: LOCAL TITLE: COMMUNITY CARE-REQUEST FOR SERVICE NOTE ME STANDARD TITLE: NONVA NOTE DATE OF NOTE: MAR 25, 2021@08:54 ENTRY DATE: MAR 25, 2021@08:54:30 AUTHOR: EVI RICKETTS COSIGNER: URGENCY: STATUS: COMPLETED COMMUNITY CARE-REQUEST FOR SERVICE NOTE ME Has ADDENDA Signed RFS order/Supporting Medical Documentation is available in [facility] Imaging Rec'd RFS from [facility] Provider: [facility] [place] RODNEY BRUNNER III [address] , [address] [facility]) [address] Requested Service: Referral to Pain Management Dx: M25.569 - Pain in unspecified Knee Medical Justification: Lumbar and Knee Pain Alerting MSA to please upload notes and then co-sign OCC Team RN for timely review of documents and timely consult placement. Thank you. /vane RICKETTS RN, PHAM Signed: 03/25/2021 08:56 Receipt Acknowledged By: 03/25/2021 14:20 /vane LAWRENCE AMSReginaldo 03/25/2021 ADDENDUM STATUS: COMPLETED RFS ATTACHED /avne TAVAREZ AMSA Signed: 03/25/2021 14:52 Receipt Acknowledged By: 03/25/2021 16:10 /PHAM Jimenez CIE, RN 03/25/2021 ADDENDUM STATUS: COMPLETED Notifying appropriate nurse for review and placement of appropriate consults to meet this 's care needs. /PHAM Jones RN Signed: 03/25/2021 16:11 Receipt Acknowledged By: 03/26/2021 08:39 /vane kirkpatrick RN, BSN 03/26/2021 ADDENDUM STATUS: COMPLETED denial letter sent and education provided and voicemail left for providers office. /vane Trinh RN, BSN Signed: 03/26/2021 09:06 THELMA RICKETTS [facility]
--- OUTSIDE RECORDS SUMMARY | 2021-08-07 18:54 | XMS REPORT ---
Author Author Department [facility] CHAPARRO reyes Organization Department [facility] Address Unknown Phone Unavailable Support Name Relationship Address Phone Yvette BENITO Next Of Kin [address] [phone] Yvette BENITO ECON [address] [phone] Ariela BENITO Next Of Kin [address] [place] [address] Insurance Providers: All historical and [...] PROVIDER ORGANIZATION (PPO) ANGEL Jan 22, 1998 [id number] CHAPARRO BENITO PATIENT MEDICARE (WNR) MEDICARE (M) PART A Mar 04, 2015 PART A [id number] [id number] CHAPARRO BENITO PATIENT MEDICARE (WNR) MEDICARE (M) PART B Mar 04, 2015 PART B [id number] CHAPARRO BENITO PATIENT [id number] FOR LIFE WNR Mar 04, 2015 FOR LIFE [id number] CHAPARRO BENITO PATIENT Selected Encounter This section includes the information on record at [place] for the Encounter. Date/Time Encounter Type Encounter Description Reason Provider Source Feb 05, 2021 01:50 PM Outpatient Encounter COMMUNITY CARE CONSULT IHE [...] appointme nts. The data comes from all [place] treatment facilities. Appointment Date/Time Appointment Type Appointment Facili ty Name Feb 26, 2021 02:30 PM AMBULATORY - NONE [facility] T, VISN 15 Mar 02, 2021 01:00 PM AMBULATORY - MEDICINE [facility] May 14, 2021 10:45 AM AMBULATORY - NONE [facility], [facility]N 15 Jul 30, 2021 10:00 AM AMBULATORY - NONE [facility], VISN 15 Aug 03, 2021 01:00 PM AMBULATORY - NONE [facility] T, VISN 15 Surgical Procedures: All associated [...] Range Comment Mar 02, 2021 01:34 PM [facility] LIPID PROFILE(HDL,TRIG,CHO L,LDL) Specimen Type: PLASMA Comment: Race unknown, if multiply result by 1.210 Ordering Provider: CHAPARRO LEWIS Report Released Date/Time: Sep 02, 2020 11:39 AM Reporting Lab: [facility] [address] [facility] [address] Performing Lab: [facility] [address] [facility] [address] CHOLESTEROL 128 mg/dL 0-200 TRIGS 118 mg/dL 0-150 HDL-CHOLESTEROL 35 mg/dL L > 40 LDL (CALC) 69.0 mg/dL Mar 02, 2021 01:34 PM [facility] BASIC METABOLIC PANEL Spe cimen Type: PLASMA Comment: Race unknown, if multiply result by 1.210 Ordering Provider: CHAPARRO LEWIS Report Released Date/Time: Sep 02, 2020 11:39 AM Reporting Lab: [facility] [address] [facility] [address] Performing Lab: [facility] [address] [facility] [address] *CREATININE 0.80 mg/dL 0.70-1.30 UREA NITROGEN mg/dL [...] 2020 11:39 AM Reporting Lab: [facility] [address] [facility] [address] Performing Lab: [facility] [address] [facility] [address] HEMOGLOBIN A1C 7.0 % H 4.0-6.0 Mar 02, 2021 01:34 PM [facility] MICROALBUMIN ([place]) RANDO M URINE Specimen Type: URINE No comment entered. Ordering Provider: CHAPARRO LEWIS Report Released Date/Time: Sep 02, 2020 11:39 AM Reporting Lab: [facility] [address] [facility] [address] Performing Lab: [facility] [address] [facility] [address] *MICROALBUMIN,RAND 23 ug/mL 0-29 *MICROALB/CREAT 22 mcg/mg cr 0-29 *UR CREATININE 104.7 mg/dL Mar 02, 2021 01:34 PM [facility] ALANINE AMINOTRANSFERASE Specimen Type: PLASMA Comment: Race unknown, if multiply result by 1.210 Ordering Provider: CHAPARRO LEWIS Report Released Date/Time: Sep 02, 2020 11:39 AM Reporting Lab: [facility] [address] [facility] [address] Performing Lab: [facility] [address] [facility] [address] ALANINE AMINOTRANSFERASE 18 U/L 8-40 Mar 02, 2021 01:34 PM [facility] ASPARTATE TRANSAMINASE Sp ecimen Type: PLASMA Comment: Race unknown, if multiply result by 1.210 Ordering Provider: CHAPARRO LEWIS Report Released Date/Time: Sep 02, 2020 11:39 AM Reporting Lab: [facility] [address] [facility] [address] Performing Lab: [facility] [address] [facility] [address] ASPARTATE TRANSAMINASE 20 U/L 5-34 Vital Signs: [...] the Encounter. Date/Time Encounter Note(s) Provider Source Feb 05, 2021 01:50 PM NONVA NOTE: LOCAL TITLE: COMMUNITY CARE-REQUEST FOR SERVICE NOTE [place] STANDARD TITLE: NONVA NOTE DATE OF NOTE: FEB 05, 2021@13:50 ENTRY DATE: FEB 05, 2021@13:51:59 AUTHOR: SIA GTZ COSIGNER: URGENCY: STATUS: COMPLETED COMMUNITY CARE-REQUEST FOR SERVICE NOTE [place] Has ADDENDA A Request for Service (RFS) form has been received which includes the following: Rec'd RFS from: REBECA MCKEON D.O. [address] [place] [id number] Requested Care: Ortho Services DX: Bilateral Knee Pain M25.569 Preferred provider: none listed ph: fx: NPI: Last OCC PCP appt: 01-13-21 Signed RFS order/Supporting Medical Documentation is available in [facility] Imaging /dori/ SIA GTZ RN Signed: 02/05/2021 13:54 Receipt Acknowledged By: 02/05/2021 14:06 /es/ LUPIS ZAYAS OCC AMSA 02/05/2021 ADDENDUM STATUS: COMPLETED Adding OCC RN for consult placement. /es/ LUPIS DE LEÓN OCC AMSA Signed: 02/05/2021 14:09 Receipt Acknowledged By: 02/09/2021 10:28 /dori/ THELMA INMAN RN, PHAM 02/09/2021 ADDENDUM STATUS: COMPLETED OCC RN alerted to the following RFS: Rec'd RFS from Community PCP: REBECA MCKEON D.O. [address] [address] Requested Care: Referral to Ortho Services Dx: M25.569 - Pain in unspecified knee Medical Justification: Requesting referral to an orthopedic surgeon for Juan Knee Pain Submitted with RFS: * 01/30/2021 - Xray Lt Knee and Rt Knee Reports * 01/27/2021 - Telephone Encounter - Reason: Fall Per Note: "he fell and scraped up and hurt his knees this weekend" - "really [facility] to make sure he didn't mess up his previous knee replacement" * 01/13/2021 - Office DO Natty Hernandez C/O 3.5 month FU Submitted for RCI process per policy. After RCI review, if they meet eligibility per DST or Wait time and opt-in for Community Care, please return to Community Care. /dori/ THELMA RICKETTS RN, PHAM Signed: 02/09/2021 10:28 SIA GTZ [facility]
--- OUTSIDE RECORDS SUMMARY | 2021-08-07 18:54 | XMS REPORT ---
Author [facility] Address Unknown Phone Unavailable Support Name Relationship Address Phone Yvette BENITO Next Of Kin [address] [phone] Yvette BENITO ECON [address] [phone] Ariela BENITO Next Of Kin [address] [place] [address] Insurance Providers: All historical and [...] PROVIDER ORGANIZATION (PPO) ANGEL Jan 22, 1998 [id number] CHAPARRO BENITO PATIENT MEDICARE (WNR) MEDICARE (M) PART A Mar 04, 2015 PART A [id number] [phone] CHAPARRO BENITO PATIENT MEDICARE (WNR) MEDICARE (M) PART B Mar 04, 2015 PART B [id number] [phone] CHAPARRO BENITO PATIENT [id number] FOR LIFE WNR Mar 04, 2015 FOR LIFE [id number] CHAPARRO BENITO PATIENT Selected Encounter This section includes the information on record at [place] for the Encounter. Date/Time Encounter Type Encounter Description Reason Provider Source Oct 09, 2020 08:00 AM Outpatient Encounter ADMIN PAT ACTIVTIES (MARCOSNO NCT) IHE Encounter Template Text not used by [place] Assessments - Encounter Diagnoses No Data Provided for This Section Plan of Treatment: Future Appointments (+ 6 months) and Future Tests (+/- 45 day s) The Plan of Treatment section includes future care activities for the patient fr om all [place] treatment facilities. This section includes future appointments and fu ture orders which are active, pending or scheduled. Future Appointments This section includes appointments that were scheduled t o occur 6 months from the date of the Encounter, up to a maximum of 20 appointme nts. The data comes from all [place] treatment facilities. Appointment Date/Time Appointment Type Appointment Facili ty Name Feb 26, 2021 02:30 PM AMBULATORY - NONE [facility], [facility] 15 Mar 02, 2021 01:00 PM AMBULATORY - MEDICINE [facility] Surgical Procedures: All associated to the encounter No Data Provided for This Section Lab Results: +/- 30 days of the encounter This section includes the Chemistry and Hematology Lab R esults on record with [place] for the patient. Radiology Reports and Pathology Report s are provided separately, in subsequent sections. Lab Results This section contains the Chemistry/Hematology Results petar t were resulted 30 days before or 30 days after the date of the Encounter. Date/Time Source Result Type Result - Unit Interpretation Reference Range Comment Sep 10, 2020 09:41 AM [facility] OCCULT BLOOD FIT X1 SCREEN Specimen Type: FECES No comment entered. Ordering Provider: CHAPARRO LEWIS Report Released Date/Time: Sep 02, 2020 10:40 AM Reporting Lab: [facility] [address] [facility] [address] Performing Lab: [facility] [address] [facility] [address] OCCULT BLOOD (FIT) #1 OF 1 Negative [...] Encounter. Date/Time Encounter Note(s) Provider Source Oct 09, 2020 08:00 AM NONVA CONSULT: LOCAL TITLE: COMMUNITY CARE CONSULT RESULTS NOTE WI STANDARD TITLE: NONVA CONSULT DATE OF NOTE: OCT 09, 2020@08:00 ENTRY DATE: DEC 29, 2020@07:57:27 AUTHOR: ARABELLA OLIVER EXP COSIGNER: URGENCY: STATUS: COMPLETED The following Non VA Care consult has been completed. See scanned document for report. NON VA Care Consult Results Other: COMMUNITY CARE-URO/DEANNA BARRETT MD/10/06/20-10/09/20 /dori/ ARABELLA OLIVER SCANNING SPECIALIST Signed: 12/29/2020 07:58 ARABELLA OLIVER [facility]
--- OUTSIDE RECORDS SUMMARY | 2021-08-07 18:54 | XMS REPORT | Encounter Summary ---
[facility] Department [facility] Address Unknown Phone Unavailable Support Name Relationship Address Phone Yvette BENITO Next Of Kin [address] [phone] Yvette BENITO ECON [address] [phone] Ariela BENITO Next Of Kin [address] [place] [address] Insurance Providers: All historical [...] Name Patient's Relationship to Policy Raphael [facility] [place] PREFERRED PROVIDER ORGANIZATION (PPO) ANGEL Jan 22, 1998 [id number] CHAPARRO BENITO PATIENT MEDICARE (WNR) MEDICARE (M) PART A Mar 04, 2015 PART A [id number] [phone] CHAPARRO BENITO PATIENT MEDICARE (WNR) MEDICARE (M) PART B Mar 04, 2015 PART B [id number] [phone] CHAPARRO BENITO PATIENT [id number] FOR LIFE WNR Mar 04, 2015 FOR LIFE [id number] CHAPARRO BENITO PATIENT Selected Encounter This section includes the information on record at [place] for the Encounter. Date/Time Encounter Type Encounter Description Reason Provider Source Feb 26, 2021 02:21 PM Outpatient Encounter COMMUNITY CARE CONSULT IHE Encounter Template Text not used by [place] Assessments - Encounter Diagnoses No Data Provided for This Section Plan of Treatment: Future Appointments (+ 6 months) and Future Tests (+/- 45 day s) The Plan of Treatment section includes future care activities for the patient fr om all [place] treatment facilities. This section includes future appointments and fu ture orders which are active, pending or scheduled. Future Appointments This section includes appointments that were scheduled t o occur 6 months from the date of the Encounter, up to a maximum of 20 appointme nts. The data comes from all [place] treatment facilities. Appointment Date/Time Appointment Type Appointment Facili ty Name Mar 02, 2021 01:00 PM AMBULATORY - [facility] May 14, 2021 10:45 AM AMBULATORY - NONE [facility] T, [facility] 15 Jul 30, 2021 10:00 AM AMBULATORY - NONE [facility] T, [facility] 15 Aug 03, 2021 01:00 PM AMBULATORY - NONE [facility] T, [facility] 15 Surgical Procedures: All associated to the encounter No Data Provided for This Section Lab Results: +/- 30 days of the encounter This section includes the Chemistry and Hematology Lab R esults on record with [place] for the patient. Radiology Reports and Pathology Report s are provided separately, in subsequent sections. Lab Results This section contains the Chemistry/Hematology Results petar t were resulted 30 days before or 30 days after the date of the Encounter. Date/Time Source Result Type Result - Unit Interpretation Reference Range Comment Mar 02, 2021 01:34 PM [facility] LIPID PROFILE(HDL,TRIG,CHO L,LDL) Specimen Type: PLASMA Comment: Race unknown, if multiply result by 1.210 Ordering Provider: CHAPARRO LEWIS Report Released Date/Time: Sep 02, 2020 11:39 AM Reporting Lab: [facility] [address] [facility] [address] Performing Lab: [facility] [address] [facility] [address] CHOLESTEROL 128 mg/dL 0-200 TRIGS 118 mg/dL 0-150 HDL-CHOLESTEROL 35 mg/dL L > 40 LDL (CALC) 69.0 mg/dL Mar 02, 2021 01:34 PM [facility] BASIC METABOLIC PANEL Spe cimen Type: PLASMA Comment: Race unknown, if multiply result by 1.210 Ordering Provider: CHAPARRO LEWIS Report Released Date/Time: Sep 02, 2020 11:39 AM Reporting Lab: [facility] [address] [facility] [address] Performing Lab: [facility] [address] [phone] *CREATININE 0.80 mg/dL 0.70-1.30 UREA NITROGEN mg/dL 17 mg/dL 9-25 GLUCOSE 105 mg/dL H 70-99 SODIUM 141 mEq/L 136-145 POTASSIUM 4.4 mEq/L 3.5-5 CALCIUM (mg/dL) 10.7 mg/dL H 8.4-10.2 ANION GAP 11.1 8-16 CHLORIDE 107 mEq/L 98-107 CO2 23.0 mEq/L 22-31 EGFR 94.5 Mar 02, 2021 01:34 PM [facility] HEMOGLOBIN A1C Specimen T ype: BLOOD No comment entered. Ordering Provider: CHAPARRO LEWIS Report Released Date/Time: Sep 02, 2020 11:39 AM Reporting Lab: [facility] [address] [facility] [address] Performing Lab: [facility] [address] [facility] [address] HEMOGLOBIN A1C 7.0 % H 4.0-6.0 Mar 02, 2021 01:34 PM [facility] MICROALBUMIN ([place], [place]) [place] M URINE Specimen Type: URINE No comment entered. Ordering Provider: CHAPARRO LEWIS Report Released Date/Time: Sep 02, 2020 11:39 AM Reporting Lab: [facility] [address] [facility] [address] Performing Lab: [facility] [address] [facility] [address] *MICROALBUMIN,RAND 23 ug/mL 0-29 *MICROALB/CREAT 22 mcg/mg cr 0-29 *UR CREATININE 104.7 mg/dL Mar 02, 2021 01:34 PM [facility] ALANINE AMINOTRANSFERASE Specimen Type: PLASMA Comment: Race unknown, if multiply result by 1.210 Ordering Provider: CHAPARRO LEWIS Report Released Date/Time: Sep 02, 2020 11:39 AM Reporting Lab: [facility] [address] [facility] [address] Performing Lab: [facility] [address] [facility] [address] ALANINE AMINOTRANSFERASE 18 U/L 8-40 Mar 02, 2021 01:34 PM [facility] ASPARTATE TRANSAMINASE Sp ecimen Type: PLASMA Comment: Race unknown, if multiply result by 1.210 Ordering Provider: CHAPARRO LEWIS Report Released Date/Time: Sep 02, 2020 11:39 AM Reporting Lab: [facility] [address] [facility] [address] Performing Lab: [facility] [address] [facility] [address] ASPARTATE TRANSAMINASE 20 U/L 5-34 Vital Signs: [...] Encounter. Date/Time Encounter Note(s) Provider Source Feb 26, 2021 02:21 PM NONVA CONSULT: LOCAL TITLE: COMMUNITY CARE CONSULT RESULTS NOTE WI STANDARD TITLE: NONVA CONSULT DATE OF NOTE: FEB 26, 2021@14:21 ENTRY DATE: MAR 08, 2021@14:22:05 AUTHOR: STEPHEN HEALY EXP COSIGNER: URGENCY: STATUS: COMPLETED The following Non VA Care consult has been completed. See scanned document for report. NON VA Care Consult Results Other: COMMUNITY CARE-ORTHO/ALESHIA ARGUETA MD/02/26/21 /dori/ STEPHEN HEALY Signed: 03/08/2021 14:23 [facility]
--- OUTSIDE RECORDS SUMMARY | 2021-08-07 18:54 | XMS REPORT | Encounter Summary ---
[facility] Address Unknown Phone Unavailable Support Name Relationship Address Phone Yvette BENITO Next Of Kin [address] [address] Yvette BENITO [address] [id number] Ariela BENITO Next Of Kin [address] [place] [address] Insurance Providers: All historical and [...] PROVIDER ORGANIZATION (PPO) ANGEL Jan 22, 1998 [id number] CHAPARRO BENITO PATIENT MEDICARE (WNR) MEDICARE (M) PART A Mar 04, 2015 PART A [id number] CHAPARRO BENITO PATIENT MEDICARE (WNR) MEDICARE (M) PART B Mar 04, 2015 PART B [id number] CHAPARRO BENITO PATIENT [id number] FOR LIFE WNR Mar 04, 2015 FOR LIFE [id number] CHAPARRO BENITO PATIENT Selected Encounter This section includes the information on record at [place] for the Encounter. Date/Time Encounter Type Encounter Description Reason Provider Source Mar 02, 2021 01:00 PM OFFICE O/P EST MOD 30-39 MIN PRIMARY CARE/ MEDICINE ICD-10-CM I71.4 Abdominal aortic aneurysm, without rupture with Provider Comments: AAA - Abdominal Aortic Aneurysm ([facility] [id number]) CHAPARRO THAO [facility] Encounter Template Text not used by [place] Assessments - Encounter Diagnoses This section includes the primary and secondary diag noses documented for the Encounter. Date/Time Primary/Secondary Diagnosis Diagnosis Name Provider Source Mar 02, 2021 01:31 PM PRIMARY Abdominal aortic aneurysm, without rupture [facility] Mar 02, 2021 01:31 PM SECONDARY Encounter for immunization [facility] Mar 02, 2021 01:31 PM SECONDARY Essential (primary) hypertension [facility] Mar 02, 2021 01:31 PM SECONDARY Osteoarthritis of knee, un specified [facility] Mar 02, 2021 01:31 PM SECONDARY Type 2 diabetes mellitus w ithout complications [facility] Plan of Treatment: Future Appointments (+ 6 [...] 14, 2021 10:45 AM AMBULATORY - NONE [facility] T, [facility] 15 Jul 30, 2021 10:00 AM AMBULATORY - NONE [facility] T, [facility] Aug 03, 2021 01:00 PM AMBULATORY - NONE [facility] T, [facility] Sep 02, 2021 11:00 AM AMBULATORY - MEDICINE [facility] Surgical Procedures: All associated to the encounter This section includes all Surgical Procedures and Surgical Procedure Notes assoc iated to the Encounter. Surgical Procedures This section includes all Surgical Procedures associated to the Encounter. Surgical Procedure Date/Time Procedure Procedure Type Procedure Qualifiers Provider Source Mar 02, 2021 01:00 PM Immunization Administration (Includes Percutaneous, Intradermal, Subcutaneous, or Intramuscular Injections); 1 Vaccine (single or Combination Vaccine/Toxoid) [facility] AD[facility] Surgical Notes There are no notes [...] Range Comment Mar 02, 2021 01:34 PM [facility] LIPID PROFILE(HDL,TRIG,CHO L,LDL) Specimen Type: PLASMA Comment: Race unknown, if multiply result by 1.210 Ordering Provider: CHAPARRO THAO Report Released Date/Time: Sep 02, 2020 11:39 AM Reporting Lab: [facility] [address] [facility] [address] Performing Lab: [facility] [address] [facility] [address] CHOLESTEROL 128 mg/dL 0-200 TRIGS 118 mg/dL 0-150 HDL-CHOLESTEROL 35 mg/dL L > 40 LDL (CALC) 69.0 mg/dL Mar 02, 2021 01:34 PM [facility] BASIC METABOLIC PANEL Spe cimen Type: PLASMA Comment: Race unknown, if multiply result by 1.210 Ordering Provider: CHAPARRO THAO Report Released Date/Time: Sep 02, 2020 11:39 AM Reporting Lab: [facility] D[facility] [address] [address] Performing Lab: [facility] D[facility] [address] [facility] [address] *CREATININE 0.80 mg/dL 0.70-1.30 UREA NITROGEN mg/dL 17 mg/dL 9-25 GLUCOSE 105 mg/dL H 70-99 SODIUM 141 mEq/L 136-145 POTASSIUM 4.4 mEq/L 3.5-5 CALCIUM (mg/dL) 10.7 mg/dL H 8.4-10.2 ANION GAP 11.1 8-16 CHLORIDE 107 mEq/L 98-107 CO2 23.0 mEq/L 22-31 EGFR 94.5 Mar 02, 2021 01:34 PM [facility] HEMOGLOBIN A1C Specimen T ype: BLOOD No comment entered. Ordering Provider: CHAPARRO THAO Report Released Date/Time: Sep 02, 2020 11:39 AM Reporting Lab: [facility] [address] [facility] [address] Performing Lab: [facility] EST[facility] [address] [facility] [address] HEMOGLOBIN A1C 7.0 % H 4.0-6.0 Mar 02, 2021 01:34 PM [facility] MICROALBUMIN (JOSE,WI) RANDO M URINE Specimen Type: URINE No comment entered. Ordering Provider: CHAPARRO THAO Report Released Date/Time: Sep 02, 2020 11:39 AM Reporting Lab: [facility] [address] [facility] [address] Performing Lab: [facility] [address] [facility] [address] *MICROALBUMIN,RAND 23 ug/mL 0-29 *MICROALB/CREAT 22 mcg/mg cr 0-29 *UR CREATININE 104.7 mg/dL Mar 02, 2021 01:34 PM [facility] ALANINE AMINOTRANSFERASE Specimen Type: PLASMA Comment: Race unknown, if multiply result by 1.210 Ordering Provider: CHAPARRO THAO Report Released Date/Time: Sep 02, 2020 11:39 AM Reporting Lab: [facility] [address] [facility] [address] Performing Lab: [facility] [address] [facility] [address] ALANINE AMINOTRANSFERASE 18 U/L 8-40 Mar 02, 2021 01:34 PM [facility] ASPARTATE TRANSAMINASE Sp ecimen Type: PLASMA Comment: Race unknown, if multiply result by 1.210 Ordering Provider: CHAPARRO THAO Report Released Date/Time: Sep 02, 2020 11:39 AM Reporting Lab: [facility] [address] [facility] [address] Performing Lab: [facility] [address] [facility] [address] ASPARTATE TRANSAMINASE 20 U/L 5-34 Vital Signs: All taken on the encounter date This section contains inpatient and outpatient Vital Signs collected on the date of the Encounter. Date/Time Temperature Pulse Blood Pressure Respiratory Rate SP02 Pa in Height Weight Body Mass Index Source Mar 02, 2021 12:49 PM 97.8 F 78 /min 129/74 mm[Hg] 18 /min 95 % 0 218.6 lb 30 [facility] Mar 02, 2021 12:48 PM 0 [facility] Immunizations: All administered on the encounter date This section contains immunizations associated to the Encounter. Immunization Series Date Issued Reaction Comments ZOSTER RECOMBINANT 2 Mar 02, 2021 Social History: Smoking Status (Most current) and Tobacco Use (All prior to enco unter date) This section includes the most current, and the historical, smoking and tobacco- related health factors from the [place] facility where the Encounter took place. Current Smoking Status This section includes the most current smoking, or tobacco -related health factor, from the [place] facility where the Encounter took place. Date/Time Current Smoking Status Comment Facility Sep 02, 2020 10:30 AM VA-TOBACCO FORMER USER [facility] Tobacco Use History This section includes a history of the smoking, or tobacco -related health factors, that were collected on or before the date of the Encoun ter. The data comes from the [place] facility where the Encounter took place. Date/Time Smoking Status/Tobacco Use Comment [facility] it Sep 02, 2020 10:30 AM [place]-TOBACCO QUIT 15 YRS OR MORE [place] [facility] [...] Encounter. Date/Time Encounter Note(s) Provider Source Mar 04, 2021 08:50 AM ADMINISTRATIVE NOTE: LOCAL TITLE: WI-FORM LETTER ADMINISTRATIVE STANDARD TITLE: ADMINISTRATIVE NOTE DATE OF NOTE: MAR 04, 2021@08:50 ENTRY DATE: MAR 04, 2021@08:50:52 AUTHOR: CHAPARRO THAO COSIGNER: URGENCY: STATUS: COMPLETED [facility] Lazarus Estevez [address] [place] [address] CHAPARRO BENITO [address], [place], [address] Dear Todd, Enclosed you'll find the results of your recent lab work. See recommendations and comments below. 03/02/21 13:34 *MICROALBUMIN,RAND 2 3 03/02/21 13:34 *MICROALB/CREAT 2 2 03/02/21 13:34 *UR CREATININE 1 04.7 03/02/21 13:34 HEMOGLOBIN A1C 7 .0H 03/02/21 13:34 GLUCOSE 1 05H 03/02/21 13:34 UREA NITROGEN mg/d 1 7 03/02/21 13:34 *CREATININE 0 .80 03/02/21 13:34 SODIUM 1 41 03/02/21 13:34 POTASSIUM 4 .4 03/02/21 13:34 CALCIUM (mg/dL) 1 0.7H 03/02/21 13:34 CHOLESTEROL 1 28 03/02/21 13:34 ASPARTATE TRANSAMI 2 0 03/02/21 13:34 ALANINE AMINOTRANS 1 8 03/02/21 13:34 TRIGS 1 18 03/02/21 13:34 ANION GAP 1 1.1 03/02/21 13:34 HDL-CHOLESTEROL 3 5L 03/02/21 13:34 CHLORIDE 1 07 03/02/21 13:34 CO2 2 3.0 03/02/21 13:34 LDL (CALC) 6 9.0 03/02/21 13:34 EGFR 9 4.5 After reviewing the results, the following recommendations/comments are for the to consider. Mildly elevated calcium and blood sugar no major concerns Sincerely, Chaparro Thao D.O. FAAFP, FACOFP [facility] [employer] [address] [place] [address] [place] [address] CHAPARRO THAO [facility] Mar 02, 2021 01:46 PM MEDICATION MGT NOTE: LOCAL TITLE: WI-MEDICATION RECONCILIATION (BP,O) STANDARD TITLE: MEDICATION MGT NOTE DATE OF NOTE: MAR 02, 2021@13:46 ENTRY DATE: MAR 02, 2021@13:46:23 AUTHOR: CHAPARRO THAO EXP COSIGNER: URGENCY: STATUS: COMPLETED MEDICATION RECONCILIATION FACILITY ALLERGY/ADR -------- [facility] [place] [facility] [address] Allergies reviewed, edited in CPRS as appropriate and confirmed by patient: Yes INCLUDED IN THIS LIST: Alphabetical list of active outpatient prescriptions dispensed from this [place] (local) and dispensed from another [place] or [facility] facility (remote) as well as inpatient orders (local pending and active), local clinic medications, locally documented non-VA medications, and local prescriptions that have or been discontinued in the past 90 days. Non-VA Meds Last Documented On: Sep 02, 2020 NOTE The display of VA prescriptions dispensed from another [place] or [facility] facility (remote) is limited to active outpatient prescription entries matched to National Drug File at the originating site and may not include some items such as investigational drugs, compounds, etc. NOT INCLUDED IN THIS LIST: Medications self-entered by the patient into personal health records (i.e. [employer]) are NOT included in this list. Non-VA medications documented outside this [place], remote inpatient orders (regardless of status) and remote clinic medications are NOT included in this list. The patient and provider must always discuss medications the patient is taking, regardless of where the medication was dispensed or obtained. OUTPT ALOGLIPTIN 25MG TAB (Status = Active) TAKE ONE TABLET BY MOUTH ONCE A DAY FOR DIABETES Rx# [id number] Last Released: 01/05/21 Qty/Days Supply: Rx Expiration Date: 09/09/21 Refills Remainin OUTPT ATORVASTATIN CALCIUM 80MG TAB (Status = Active) TAKE ONE TABLET BY MOUTH ONCE A DAY FOR CHOLESTEROL. Rx# [id number] Last Released: 01/05/21 Qty/Days Supply: Rx Expiration Date: 09/09/21 Refills Remainin OUTPT CLOPIDOGREL BISULFATE 75MG TAB (Status = Active) TAKE ONE TABLET BY MOUTH ONCE A DAY TO PREVENT BLOOD CLOTS Rx# [id number] Last Released: 02/27/21 Qty/Days Supply: 90 Rx Expiration Date: 09/09/21 Refills Remainin OUTPT GABAPENTIN 300MG CAP (Status = Active) TAKE ONE CAPSULE BY MOUTH AT BEDTIME Rx# [id number] Last Released: 02/27/21 Qty/Days Supply: 90 Rx Expiration Date: 09/09/21 Refills Remainin OUTPT METFORMIN HCL 500MG TAB (Status = Active) TAKE ONE TABLET BY MOUTH TWO TIMES A DAY WITH BREAKFAST AND EVENING MEAL FOR BLOOD SUGAR CONTROL. TAKE WITH FOOD. AVOID ALCOHOL. DISCONTINUE BEFORE GETTING XRAY DYE. Rx# [id number] Last Released: 02/27/21 Qty/Days Supply: 180/ Rx Expiration Date: 09/09/21 Refills Remainin OUTPT METOPROLOL SUCCINATE 25MG SA TAB (Status = Active) TAKE ONE TABLET BY MOUTH ONCE A DAY FOR HEART/BLOOD PRESSURE. SWALLOW WHOLE, DO NOT CRUSH OR CHEW (TABLETS MAY BE CUT IN HALF). Rx# [id number] Last Released: 01/05/21 Qty/Days Supply: 90 Rx Expiration Date: 09/09/21 Refills Remainin OUTPT NAPROXEN 500MG TAB (Status = Active) TAKE ONE TABLET BY MOUTH EVERY 12 HOURS NEEDED FOR PAIN AND INFLAMMATION.TAKE WITH FOOD OR MILK Rx# [id number] Last Released: 09/23/20 Qty/Days Supply: 180/90 Rx Expiration Date: 09/09/21 Refills Remainin OUTPT SACUBITRIL 49MG/VALSARTAN 51MG TAB (Status = Discontinued) TAKE ONE-HALF TABLET BY MOUTH TWO TIMES A DAY FOR HEART. Rx# [id number] Last Released: 10/28/20 Qty/Days Supply: 90 Rx Expiration Date: 09/09/21 Refills Remainin OUTPT SACUBITRIL 49MG/VALSARTAN 51MG TAB (Status = Active) TAKE ONE-HALF TABLET BY MOUTH TWO TIMES A DAY FOR HEART. Rx# [id number] Last Released: 02/13/21 Qty/Days Supply: 90/90 Rx Expiration Date: 02/07/22 Refills Remainin OUTPT TADALAFIL 5MG TAB (Status = Active) TAKE ONE TABLET BY MOUTH DIRECTED FOR ERECTILE DYSFUNCTION. ONE HOUR BEFORE SEXUAL ENCOUNTER *DO NOT TAKE MORE THAN 1 DOSE A DAY* 4 DOSES PER 30 DAYS ONLY! Rx# [id number] Last Released: 10/20/20 Qty/Days Supply: Rx Expiration Date: 09/09/21 Refills Remainin OUTPT TAMSULOSIN HCL 0.4MG CAP (Status = Active) TAKE ONE CAPSULE BY MOUTH ONCE A DAY FOR PROSTATE. TAKE AT THE SAME TIME EACH DAY WITH FOOD. Rx# [id number] Last Released: 01/29/21 Qty/Days Supply: Rx Expiration Date: 09/09/21 Refills Remainin SUPPLIES Patient/family/caregiver educated and evaluated for understanding on Medications. The list was reviewed with and given to the patient/family/caregiver who were also educated on importance of sharing medication list with all VA providers and non-VA providers. For questions, please call your team nurse. Pertinent lab reviewed: N/A. Level of Understanding: Unable to assess /dori/ CHAPARRO THAO DO Signed: 03/02/2021 13:46 CHAPARRO THAO CB Mar 02, 2021 01:32 PM MEDICATION MGT NOTE: LOCAL TITLE: WI-MEDICATION RECONCILIATION (BP,O) STANDARD TITLE: MEDICATION MGT NOTE DATE OF NOTE: MAR 02, 2021@13:32 ENTRY DATE: MAR 02, 2021@13:32:55 AUTHOR: CHAPARRO THAO COSIGNER: URGENCY: STATUS: COMPLETED MEDICATION RECONCILIATION FACILITY ALLERGY/ADR -------- [facility] [place] [facility] [address] Allergies reviewed, edited in CPRS as appropriate and confirmed by patient: Yes INCLUDED IN THIS LIST: Alphabetical list of active outpatient prescriptions dispensed from this [place] (local) and dispensed from another [place] or [facility] facility (remote) as well as inpatient orders (local pending and active), local clinic medications, locally documented non-VA medications, and local prescriptions that have or been discontinued in the past 90 days. Non-VA Meds Last Documented On: Sep 02, 2020 NOTE The display of VA prescriptions dispensed from another [place] or [facility]D facility (remote) is limited to active outpatient prescription entries matched to National Drug File at the originating site and may not include some items such as investigational drugs, compounds, etc. NOT INCLUDED IN THIS LIST: Medications self-entered by the patient into personal health records (i.e. [employer]) are NOT included in this list. Non-VA medications documented outside this [place], remote inpatient orders (regardless of status) and remote clinic medications are NOT included in this list. The patient and provider must always discuss medications the patient is taking, regardless of where the medication was dispensed or obtained. OUTPT ALOGLIPTIN 25MG TAB (Status = Active) TAKE ONE TABLET BY MOUTH ONCE A DAY FOR DIABETES Rx# [id number] Last Released: 01/05/21 Qty/Days Supply: Rx Expiration Date: 09/09/21 Refills Remainin OUTPT ATORVASTATIN CALCIUM 80MG TAB (Status = Active) TAKE ONE TABLET BY MOUTH ONCE A DAY FOR CHOLESTEROL. Rx# [id number] Last Released: 01/05/21 Qty/Days Supply: 90 Rx Expiration Date: 09/09/21 Refills Remainin OUTPT CLOPIDOGREL BISULFATE 75MG TAB (Status = Active) TAKE ONE TABLET BY MOUTH ONCE A DAY TO PREVENT BLOOD CLOTS Rx# [id number] Last Released: 02/27/21 Qty/Days Supply: 90 Rx Expiration Date: 09/09/21 Refills Remainin OUTPT GABAPENTIN 300MG CAP (Status = Active) TAKE ONE CAPSULE BY MOUTH AT BEDTIME Rx# [id number] Last Released: 02/27/21 Qty/Days Supply: 90 Rx Expiration Date: 09/09/21 Refills Remainin OUTPT METFORMIN HCL 500MG TAB (Status = Active) TAKE ONE TABLET BY MOUTH TWO TIMES A DAY WITH BREAKFAST AND EVENING MEAL FOR BLOOD SUGAR CONTROL. TAKE WITH FOOD. AVOID ALCOHOL. DISCONTINUE BEFORE GETTING XRAY DYE. Rx# [id number] Last Released: 02/27/21 Qty/Days Supply: 180 Rx Expiration Date: 09/09/21 Refills Remainin OUTPT METOPROLOL SUCCINATE 25MG SA TAB (Status = Active) TAKE ONE TABLET BY MOUTH ONCE A DAY FOR HEART/BLOOD PRESSURE. SWALLOW WHOLE, DO NOT CRUSH OR CHEW (TABLETS MAY BE CUT IN HALF). Rx# [id number] Last Released: 01/05/21 Qty/Days Supply: Rx Expiration Date: 09/09/21 Refills Remainin OUTPT NAPROXEN 500MG TAB (Status = Active) TAKE ONE TABLET BY MOUTH EVERY 12 HOURS NEEDED FOR PAIN AND INFLAMMATION.TAKE WITH FOOD OR MILK Rx# [id number] Last Released: 09/23/20 Qty/Days Supply: 180 Rx Expiration Date: 09/09/21 Refills Remainin OUTPT SACUBITRIL 49MG/VALSARTAN 51MG TAB (Status = Discontinued) TAKE ONE-HALF TABLET BY MOUTH TWO TIMES A DAY FOR HEART. Rx# [id number] Last Released: 10/28/20 Qty/Days Supply: 90 Rx Expiration Date: 09/09/21 Refills Remainin OUTPT SACUBITRIL 49MG/VALSARTAN 51MG TAB (Status = Active) TAKE ONE-HALF TABLET BY MOUTH TWO TIMES A DAY FOR HEART. Rx# [id number] Last Released: 02/13/21 Qty/Days Supply: Rx Expiration Date: 02/07/22 Refills Remainin OUTPT TADALAFIL 5MG TAB (Status = Active) TAKE ONE TABLET BY MOUTH DIRECTED FOR ERECTILE DYSFUNCTION. ONE HOUR BEFORE SEXUAL ENCOUNTER *DO NOT TAKE MORE THAN 1 DOSE A DAY* 4 DOSES PER 30 DAYS ONLY! Rx# [id number] Last Released: 10/20/20 Qty/Days Supply: Rx Expiration Date: 09/09/21 Refills Remainin OUTPT TAMSULOSIN HCL 0.4MG CAP (Status = Active) TAKE ONE CAPSULE BY MOUTH ONCE A DAY FOR PROSTATE. TAKE AT THE SAME TIME EACH DAY WITH FOOD. Rx# [id number] Last Released: 01/29/21 Qty/Days Supply: Rx Expiration Date: 09/09/21 Refills Remainin SUPPLIES Patient/family/caregiver educated and evaluated for understanding on Medications. The list was reviewed with and given to the patient/family/caregiver who were also educated on importance of sharing medication list with all VA providers and non-VA providers. For questions, please call your team nurse. Pertinent lab reviewed: N/A. Level of Understanding: Unable to assess Please note any changes to the medications from this visit: New? No Changed? No Stopped? No /dori/ CHAPARRO THAO DO Signed: 03/02/2021 13:33 CHAPARRO THAO [facility] Mar 02, 2021 01:27 PM PRIMARY CARE RESIDENT NOTE: LOCAL TITLE: ID-GENERAL/PRIMARY CARE STANDARD TITLE: PRIMARY CARE RESIDENT NOTE DATE OF NOTE: MAR 02, 2021@13:27 ENTRY DATE: MAR 02, 2021@13:27:29 AUTHOR: CHAPARRO THAO COSIGNER: URGENCY: STATUS: COMPLETED Chief Complaint: Follow-up for vascular disease as well as needing updated shingles shot and low back pain List of Problems: Patient's primary care is Dr. Juan in [facility], Dr. Mckeon did a stent for his aneurysm in September [address] Queen is his firer portable boiler in [place] and Dr. Mays is his orthopedic surgeon down in [place] recommending injection and physical therapy for low back pain Subjective: Review of systems doing well No chest pain or palpitations No shortness of breath No GI complaints he does use Tums for his increased bowel gas No urinary symptoms No bowel movement changes Remainder of review of systems is negative Current Medicines: Active Outpatient Medications (excluding Supplies): Active Outpatient Medications Status 1) ALOGLIPTIN 25MG TAB TAKE ONE TABLET BY MOUTH ONCE A ACTIVE DAY FOR DIABETES 2) ATORVASTATIN CALCIUM 80MG TAB TAKE ONE TABLET BY ACTIVE MOUTH ONCE A DAY FOR CHOLESTEROL. 3) CLOPIDOGREL BISULFATE 75MG TAB TAKE ONE TABLET BY ACTIVE MOUTH ONCE A DAY TO PREVENT BLOOD CLOTS 4) GABAPENTIN 300MG CAP TAKE ONE CAPSU LE BY MOUTH AT ACTIVE BEDTIME 5) METFORMIN HCL 500MG TAB TAKE ONE TA BLET BY MOUTH TWO ACTIVE TIMES A DAY WITH BREAKFAST AND EVENING MEAL FOR BLOOD SUGAR CONTROL. TAKE WITH FOOD. AVOID ALCOHOL. DISCONTINUE BEFORE GETTING XRAY DYE. 6) METOPROLOL SUCCINATE 25MG SA TAB TA KE ONE TABLET BY ACTIVE MOUTH ONCE A DAY FOR HEART/BLOOD PRESSURE. SWALLOW WHOLE, DO NOT CRUSH OR CHEW (TABLETS MAY BE CUT IN HALF). 7) NAPROXEN 500MG TAB TAKE ONE TABLET BY MOUTH EVERY 12 ACTIVE HOURS NEEDED FOR PAIN AND INFLAMMATION.TAKE WITH FOOD OR MILK 8) SACUBITRIL 49MG/VALSARTAN 51MG TAB TAKE ONE-HALF ACTIVE TABLET BY MOUTH TWO TIMES A DAY FOR HEART. 9) TADALAFIL 5MG TAB TAKE ONE TABLET B Y MOUTH ACTIVE DIRECTED FOR ERECTILE DYSFUNCTION. ONE HOUR BEFORE SEXUAL ENCOUNTER *DO NOT TAKE MORE THAN 1 DOSE A DAY* 4 DOSES PER 30 DAYS ONLY! 10) TAMSULOSIN HCL 0.4MG CAP TAKE ONE C APSULE BY MOUTH ACTIVE ONCE A DAY FOR PROSTATE. TAKE AT THE SAME TIME EACH DAY WITH FOOD. Active Non-VA Medications Status 1) Non-VA ASPIRIN 81MG CHEW TAB 81MG M OUTH EVERY MORNING ACTIVE 2) Non-VA ATORVASTATIN CALCIUM 80MG TA B 80MG MOUTH AT ACTIVE BEDTIME 3) Non-VA CLOPIDOGREL BISULFATE 75MG T AB 75MG MOUTH ONCE ACTIVE A DAY 4) Non-VA GABAPENTIN 300MG CAP 300MG M OUTH AT BEDTIME ACTIVE 5) Non-VA MAGNESIUM OXIDE 400MG TAB 20 0MG MOUTH TWO ACTIVE TIMES A DAY 6) Non-VA METFORMIN HCL 500MG TAB 500M G MOUTH TWO TIMES ACTIVE A DAY WITH BREAKFAST AND EVENING MEAL 7) Non-VA METOPROLOL SUCCINATE 50MG SA TAB 25MG MOUTH ACTIVE EVERY MORNING 8) Non-VA SACUBITRIL 49MG/VALSARTAN 51 MG TAB ONE-HALF ACTIVE TABLET MOUTH TWO TIMES A DAY 9) Non-VA SITAGLIPTIN PHOSPHATE 100MG TAB 100MG MOUTH ACTIVE EVERY MORNING 10) Non-VA TAMSULOSIN HCL 0.4MG CAP 0.4 MG MOUTH ONCE A ACTIVE DAY 20 Total Medications Compared newly ordered medications and medication changes to active medications and non-VA medications, and then reviewed medications with patient and/or caregiver. All discrepancies noted and reconciled. Patients, or caregivers, was provided with reconciled medications list and advised to provide to all non VA providers. Potential adverse reactions of new medications were discussed with the patient. Medication Reconciliation - I have reviewed the active medication list and have made changes as appropriate. Medications discussed with patient and/or caregiver. Allergies: PENICILLIN Physical Exam: Vitals: Temperature - 97.8 F [36.6 C] (03/02/2021 12:49) Pulse - 78 (03/02/2021 12:49) Respiration - 18 (03/02/2021 12:49) Skin: No suspicious lesions Lungs: Good air movement Heart: Regular rate and rhythm without murmur no S3 or S4 Abdomen: Normal no masses normal bowel sounds Back: No tenderness to percussion low back pain by history genital: Deferred [employer]NER: No motor or sensory deficits Laboratory: Pending Radiology: Followed by orthopedics for low back pain Assessment: Low back pain stable Aneurysm followed by vascular Cardiology follow-up of BARBARA Wilson with Dr. Juan for primary care Orders: Follow-up 6 months Patient allowed time to ask questions all answered Second of the shingles shots today to complete series /dori/ CHAPARRO THAO DO Signed: 03/02/2021 13:45 CHAPARRO THAO [facility] Mar 02, 2021 12:45 PM NURSING OUTPATIENT NOTE: LOCAL TITLE: WI-NURSE/CBOC STANDARD TITLE: NURSING OUTPATIENT NOTE DATE OF NOTE: MAR 02, 2021@12:45 ENTRY DATE: MAR 02, 2021@12:45:43 AUTHOR: AQUILES LEIVA COSIGNER: URGENCY: STATUS: COMPLETED WI-NURSE/CBOC Has ADDENDA Reason for appointment: PCP Appointment Reason for appointment: Scheduled follow up 6 month follow up Is the patient diabetic? Yes - patient is a diabetic. Last HGBA1c value and time done: HGBA1c < 7, repeat in 6 months HGBA1c > 7, repeat in 3 months A1C to be completed today. Yes What is your goal for today's visit? *Required Now we are going to discuss stress, is there anything in your life that worries or stresses you that we may assist you with today? *Required No Are you registered for [employer] ([facility])? No - Are you interested in registering? No If 'yes' please hand [employer] brochure. WI-DIAG RESULT (PERSON OR PHONE): Results will be mailed or phoned to patient when available. [place]-PAIN: Pain Reassessment-Patient's updated pain score after intervention is: PAIN Score 0 Pain Documentation: Pain level 3 or less. /dori/ AQUILES LEIVA LPN Signed: 03/02/2021 12:49 03/02/2021 ADDENDUM STATUS: COMPLETED Herpes Zoster (Shingles) Vaccine: Prior Herpes Zoster vaccination The patient has previously received the recombinant zoster vaccine dose #1 (Shingrix, RZV). Date: Nov, 2017 Exact date is unknown Location: [facility] Written documentation: Verbal Report. Pt states he had the first shingles vaccine but was unable to have the 2nd shot due to shortage and vaccine was unavailable. [facility] 2nd shingles vaccine today. Herpes Zoster (Shingles) Vaccine: The patient received recombinant zoster vaccine (RZV) 0.5 ml IM in Left deltoid. Hand Trimmer: [employer] Lot#s and Expiration Date: Lot:[id number] EXP:08/16/22 LOT:[id number] EXP:08/16/22 Administered by protocol/policy Complications: None The VIS for the recombinant zoster vaccine (RZV) dated Apr was given to the patient. /dori/ SALENA ZAVALA RN Signed: 03/02/2021 13:36 Receipt Acknowledged By: * AWAITING SIGNATURE * CAHPARRO THAO,AQUILES STRATTON CBOC
--- OUTSIDE RECORDS SUMMARY | 2021-08-07 18:55 | XMS REPORT | Encounter Summary ---
[facility] Address Unknown Phone Unavailable Support Name Relationship Address Phone Yvette BENITO Next Of Kin [address] [address] Yvette BENITO ECON [address] [phone] Ariela BENITO Next Of [address] [place] [address] Insurance Providers: All historical and [...] PROVIDER ORGANIZATION (PPO) ANGEL Jan [birth year] 1999 [id number] CHAPARRO BENITO PATIENT MEDICARE (WNR) MEDICARE (M) PART A Mar 04, 2015 PART A [id number] CHAPARRO BENITO PATIENT MEDICARE (WNR) MEDICARE (M) PART B Mar 04, 2015 PART B [id number] [phone] CHAPARRO BENITO PATIENT [id number] FOR LIFE WNR Mar 04, 2015 FOR LIFE [id number] CHAPARRO BENITO PATIENT Selected Encounter This section includes the information on record at [place] for the Encounter. Date/Time Encounter Type Encounter Description Reason Provider Source Sep 02, 2020 10:30 AM OFFICE O/P EST MOD 30-39 MIN PRIMARY CARE/ MEDICINE ICD-10-CM I71.4 Abdominal aortic aneurysm, without rupture with Provider Comments: AAA - Abdominal Aortic Aneurysm ([facility] [id number]) CHAPARRO LEWIS [facility] Encounter Template Text not used by [facility] Assessments - Encounter Diagnoses This section includes the primary and secondary diag noses documented for the Encounter. Date/Time Primary/Secondary Diagnosis Diagnosis Name Provider Source Sep 02, 2020 11:52 AM PRIMARY Abdominal aortic aneurysm, without rupture AQUILES LEIVA [facility] Sep 02, 2020 11:52 AM SECONDARY Calculus of kidney AQUILES LEIVA [facility] Sep 02, 2020 11:52 AM SECONDARY Essential (primary) hypertension AQUILES LEIVA [facility] Sep 02, 2020 11:52 AM SECONDARY Nonrheumatic aortic valve disorder, unspecified AQUILES LEIVA [facility] Sep 02, 2020 11:52 AM SECONDARY Osteoarthritis of knee, un specified AQUILES LEIVA [facility] Sep 02, 2020 11:52 AM SECONDARY Type 2 diabetes mellitus w ithout complications LEIVAA[facility]ILES DELFINA [facility] Plan of Treatment: Future Appointments (+ 6 months) and Future Tests (+/- 45 day s) The Plan of Treatment section includes future care activities for the patient fr om all [place] treatment facilities. This section includes future appointments and fu ture orders which are active, pending or scheduled. Future Appointments This section includes appointments that were scheduled t o occur 6 months from the date of the Encounter, up to a maximum of 20 appointme nts. The data comes from all [place] treatment facilities. Appointment Date/Time Appointment Type Appointment Facili ty Name Sep 03, 2020 10:45 AM AMBULATORY - MEDICINE [facility] Sep 08, 2020 08:00 AM AMBULATORY - NONE [facility] [place] Oct 01, 2020 10:45 AM AMBULATORY - MEDICINE [facility] Oct 06, 2020 02:45 PM AMBULATORY - NONE [facility] Feb 26, 2021 02:30 PM AMBULATORY - NONE [facility] Mar 02, 2021 01:00 PM AMBULATORY - MEDICINE [facility] Surgical Procedures: All associated to the encounter No Data Provided for This Section Lab Results: +/- 30 days of the encounter This section includes the Chemistry and Hematology Lab R esults on record with VA for the patient. Radiology Reports and Pathology Report s are provided separately, in subsequent sections. Lab Results This section contains the Chemistry/Hematology Results petar t were resulted 30 days before or 30 days after the date of the Encounter. Date/Time Source Result Type Result - Unit Interpretation Reference Range Comment Sep 10, 2020 09:41 AM [facility] OCCULT BLOOD FIT X1 SCREEN Specimen Type: FECES No comment entered. Ordering Provider: CHAPARRO LEWIS Report Released Date/Time: Sep 02, 2020 10:40 AM Reporting Lab: [facility] ESTEVEZ [facility] [address] [address] Performing Lab: [facility]ARUS Dior [facility] [address] [address] OCCULT BLOOD (FIT) #1 OF 1 Negative Neg ative Sep 02, 2020 11:30 AM [facility] COMPREHENSIVE METABOLIC PA TORIBIO Specimen Type: PLASMA Comment: Race unknown, if multiply result by 1.210 Ordering Provider: CHAPARRO LEWIS Report Released Date/Time: Aug 27, 2020 09:04 AM Reporting Lab: [facility] ESTEVEZ [facility] [address] [address] Performing Lab: [facility]ARUS Dior [facility] [address] [address] *CREATININE 0.86 mg/dL 0.70-1.30 UREA NITROGEN mg/dL [...] EGFR 86.9 Sep 02, 2020 11:30 AM Communication [employer] LIPID PROFILE(HDL,TRIG,CHO L,LDL) Specimen Type: PLASMA Comment: Race unknown, if multiply result by 1.210 Ordering Provider: CHAPARRO LEWIS Report Released Date/Time: Aug 27, 2020 09:04 AM Reporting Lab: [facility] ESTEVEZ [facility] [address] [address] Performing Lab: [facility]ARUS ESTEVEZ [facility] [address] [address] CHOLESTEROL 146 mg/dL 0-200 TRIGS 119 mg/dL 0-150 HDL-CHOLESTEROL 45 mg/dL > 40 LDL (CALC) 77.0 mg/dL Sep 02, 2020 11:30 AM [facility] TSH Specimen T ype: SERUM No comment entered. Ordering Provider: CHAPARRO LEWIS Report Released Date/Time: Aug 27, 2020 09:04 AM Reporting Lab: [facility] ESTEVEZ [facility] [address] [address] Performing Lab: [facility]AR[facility] ESTEVEZ [facility] [address] [address] TSH 0.93 uIU/mL 0.47-5 Sep 02, 2020 11:30 AM [facility] PROSTATIC SPECIFIC ANTIGEN (TOTAL) Specimen Type: SERUM No comment entered. Ordering Provider: CHAPARRO LEWIS Report Released Date/Time: Aug 27, 2020 09:04 AM Reporting Lab: [facility] ESTEVEZ [facility] [address] [address] Performing Lab: LAZARUS ESTEVEZ [facility] [address] [address] PROSTATIC SPECIFIC ANTIGEN(TOTAL) 1.1 ng/mL 0-4 Sep 02, 2020 11:30 AM [facility] HEMOGLOBIN A1C Specimen T ype: BLOOD No comment entered. Ordering Provider: CHAPARRO LEWIS Report Released Date/Time: Aug 27, 2020 09:04 AM Reporting Lab: [facility] ESTEVEZ [facility] [address] [address] Performing Lab: LAZARUS ESTEVEZ [facility] [address] [address] HEMOGLOBIN A1C 6.9 % H 4.0-6.0 Sep 02, 2020 11:30 AM [facility] URINALYSIS Specimen T ype: URINE No comment entered. Ordering Provider: CHAPARRO LEWIS Report Released Date/Time: Aug 27, 2020 09:04 AM Reporting Lab: [facility] ESTEVEZ [facility] [address] [address] Performing Lab: [facility]AR[facility] ESTEVEZ [facility] [address] [address] URINE COLOR Yellow SPECIFIC GRAVITY 1.015 1.005-1.030 [...] Trace /HPF Sep 02, 2020 11:30 AM [facility] MICROALBUMIN (,UT) RANDO M URINE Specimen Type: URINE No comment entered. Ordering Provider: CHAPARRO LEWIS Report Released Date/Time: Aug 27, 2020 09:04 AM Reporting Lab: [facility] ESTEVEZ [facility] [address] [address] Performing Lab: LAZARUS ESTEVEZ [facility] [address] [address] *MICROALBUMIN,RAND 12 ug/mL 0-29 *MICROALB/CREAT 18 mcg/mg cr 0-29 *UR CREATININE 68.7 mg/dL Sep 02, 2020 11:30 AM [facility] CBC & DIFF Specimen T ype: BLOOD No comment entered. Ordering Provider: CHAPARRO LEWIS Report Released Date/Time: Aug 27, 2020 09:04 AM Reporting Lab: [facility]AR[facility] ESTEVEZ [facility] [address] [address] Performing Lab: LA[facility]ARUS ESTEVEZ [facility] [address] [address] WBC 6.8 K/cmm 3.60-11.20 RBC 4.86 M/ul [...] in Height Weight Body Mass Index Source Sep 02, 2020 10:36 AM 98.2 F 72 /min 145/88 mm[Hg] 20 /min 99 % 2 72 in 213.3 lb 29 [facility] Sep 02, 2020 10:27 AM 2 [facility] Immunizations: All administered on the encounter date No Data Provided for This Section Social History: Smoking Status (Most current) and Tobacco Use (All prior to enco unter date) This section includes the most current, and the historical, smoking and tobacco- related health factors from the [place] facility where the Encounter took place. Current Smoking Status This section includes the most current smoking, or tobacco -related health factor, from the [place] facility where the Encounter took place. Date/Time Current Smoking Status [facility] Sep 02, 2020 10:30 AM [place]-TOBAC[place] FORMER USER [facility] Tobacco Use History This section includes a history of the smoking, or tobacco -related health factors, that were collected on or before the date of the Encoun ter. The data comes from the [place] facility where the Encounter took place. Date/Time Smoking Status/Tobacco Use Comment Candace wong Sep 02, 2020 10:30 AM VA-TOBACCO QUIT 15 YRS OR MORE [facility] Advance Directives: All historical and current No Data Provided for This Section Radiology Reports: +/- 30 days of the encounter No Data Provided for This Section Pathology Reports: +/- 30 days of the encounter No Data Provided for This Section Encounter Notes: All associated encounter notes This section contains the clinical notes associated to the Encounter. Date/Time Encounter Note(s) Provider Source Sep 03, 2020 08:25 AM ADMINISTRATIVE NOTE: LOCAL TITLE: WI-FORM LETTER ADMINISTRATIVE STANDARD TITLE: ADMINISTRATIVE NOTE DATE OF NOTE: SEP 03, 2020@08:25 ENTRY DATE: SEP 03, 2020@08:25:25 AUTHOR: CHAPARRO LEWIS COSIGNER: URGENCY: STATUS: COMPLETED [facility] Lazarus Estevez [address] [place] [address] CHAPARRO BENITO [address], [place], [address] Dear [place], [facility] you'll find the results of your recent lab work. See recommendations and comments below. 09/02/20 11:30 TSH 0 .93 09/02/20 11:30 PROSTATIC SPECIFIC 1 .1 09/02/20 11:30 GLUCOSE 1 37H 09/02/20 11:30 UREA NITROGEN mg/d 1 3 09/02/20 11:30 *CREATININE 0 .86 09/02/20 11:30 SODIUM 1 42 09/02/20 11:30 POTASSIUM 4 .7 09/02/20 11:30 CALCIUM (mg/dL) 9 .8 09/02/20 11:30 CHOLESTEROL 1 46 09/02/20 11:30 PROTEIN,TOTAL 7 .2 09/02/20 11:30 ALBUMIN 4 .4 09/02/20 11:30 TOTAL BILIRUBIN 1 .2H 09/02/20 11:30 ASPARTATE TRANSAMI 2 1 09/02/20 11:30 ALANINE AMINOTRANS 2 0 09/02/20 11:30 TRIGS 1 19 09/02/20 11:30 ANION GAP 8 .4 09/02/20 11:30 HDL-CHOLESTEROL 4 5 09/02/20 11:30 CHLORIDE 1 07 09/02/20 11:30 CO2 2 7.0 09/02/20 11:30 ALKALINE PHOSPHATA 8 2 09/02/20 11:30 LDL (CALC) 7 7.0 09/02/20 11:30 EGFR 8 6.9 09/02/20 11:30 WBC 6 .8 09/02/20 11:30 RBC 4 .86 09/02/20 11:30 HGB 1 5.2 09/02/20 11:30 HCT 4 5.2 09/02/20 11:30 MCV 9 3.0 09/02/20 11:30 MCH 3 1.3 09/02/20 11:30 MCHC 3 3.6 09/02/20 11:30 RDW 1 2.4 09/02/20 11:30 PLATELET COUNT 1 38L 09/02/20 11:30 MPV 1 0.4 09/02/20 11:30 LYMPHOCYTES, AUTO% 1 7.0 09/02/20 11:30 MONOCYTES, ABSOLUT 0 .5 09/02/20 11:30 EOSINOPHILS, ABSOL 0 .1 09/02/20 11:30 BASOPHILS, ABSOLUT 0 .0 09/02/20 11:30 NEUTROPHILS, ABSOL 5 .0 09/02/20 11:30 NEUTROPHILS, AUTO 7 2.8 09/02/20 11:30 MONOCYTES, AUTO% 7 .3 09/02/20 11:30 EOSINOPHILS, AUTO% 1 .9 09/02/20 11:30 BASOPHILS, AUTO% 0 .6 09/02/20 11:30 LYMPHOCYTES, ABSOL 1 .2 09/02/20 11:30 IMMATURE GRANS, AB 0 .03 09/02/20 11:30 IMMATURE GRANS, AU 0 .4 09/02/20 11:30 APPEARANCE,URINE H azy 09/02/20 11:30 URINE COLOR Y ellow 09/02/20 11:30 SPECIFIC GRAVITY 1 .015 09/02/20 11:30 UROBILINOGEN N egative 09/02/20 11:30 URINE BLOOD N egative 09/02/20 11:30 URINE BILIRUBIN N egative 09/02/20 11:30 URINE KETONES N egative 09/02/20 11:30 URINE GLUCOSE N egative 09/02/20 11:30 URINE PROTEIN N egative 09/02/20 11:30 URINE PH 7 .0 09/02/20 11:30 URINE MUCUS T race 09/02/20 11:30 SQUAMOUS EPITHELIA T race 09/02/20 11:30 URINE NITRITE N egative 09/02/20 11:30 LEUKOCYTE ESTERASE N egative 09/02/20 11:30 *UR WBC 3 -5 09/02/20 11:30 *UR RBC 3 -5H 09/02/20 11:30 *MICROALBUMIN,RAND 1 2 09/02/20 11:30 *MICROALB/CREAT 1 8 09/02/20 11:30 *UR CREATININE 6 8.7 09/02/20 11:30 HEMOGLOBIN A1C 6 .9H After reviewing the results, the following recommendations/comments are for the to consider. All labs reviewed look great no changes recommended at present. The hemoglobin A1c is measured as high it's below 7 so no concerns -The urinalysis is acceptable. -Your thyroid (TSH) is in the normal ran ge. -Your prostate specific antigen (PSA) is in the normal range. -The chemistry tests shows your blood leung gar, electrolytes, kidney and liver function tests normal or considered acceptable. -Cholesterol levels are in the target ra nge. -Your CBC(complete blood count)has a nor mal WBC(white blood cell count). No indication of leukemia. Anemia is absent. Sincerely, Chaparro Lewis D.O. FAAFP, FACOFP [facility] [employer] [address] [place] [address] CHAPARRO LEWIS [facility] Sep 02, 2020 11:52 AM MEDICATION MGT NOTE: LOCAL TITLE: WI-MEDICATION RECONCILIATION (BP,O) STANDARD TITLE: MEDICATION MGT NOTE DATE OF NOTE: SEP 02, 2020@11:52 ENTRY DATE: SEP 02, 2020@11:52:23 AUTHOR: CHAPARRO LEWIS EXP COSIGNER: URGENCY: STATUS: COMPLETED MEDICATION RECONCILIATION FACILITY ALLERGY/ADR -------- [facility] [address] Allergies reviewed, edited in CPRS as appropriate and confirmed by patient: Yes INCLUDED IN THIS LIST: Alphabetical list of active outpatient prescriptions dispensed from this [place] (local) and dispensed from another [place] or [facility] facility (remote) as well as inpatient orders (local pending and active), local clinic medications, locally documented non-VA medications, and local prescriptions that have or been discontinued in the past 90 days. Non-VA Meds Last Documented On: Sep 02, 2020 NOTE The display of VA prescriptions dispensed from another [place] or [facility] facility (remote) is limited to active outpatient prescription entries matched to National Drug File at the originating site and may not include some items such as investigational drugs, compounds, etc. NOT INCLUDED IN THIS LIST: Medications self-entered by the patient into personal health records (i.e. [email or web address]) are NOT included in this list. Non-VA medications documented outside this [place], remote inpatient orders (regardless of status) and remote clinic medications are NOT included in this list. The patient and provider must always discuss medications the patient is taking, regardless of where the medication was dispensed or obtained. Non-VA ASPIRIN 81MG CHEW TAB CHEW ONE TABLET BY MOUTH EVERY MORNING VA RX: Medication prescribed by Non-VA provider. Non-VA ATORVASTATIN CALCIUM 80MG TAB TAKE ONE TABLET BY MOUTH AT BEDTIME VA RX: Medication prescribed by Non-VA provider. Non-VA CLOPIDOGREL BISULFATE 75MG TAB TAKE ONE TABLET BY MOUTH ONCE A DAY VA RX: Medication prescribed by Non-VA provider. Non-VA GABAPENTIN 300MG CAP TAKE 1 CAPSULE BY MOUTH AT BEDTIME VA RX: Medication prescribed by Non-VA provider. Non-VA MAGNESIUM OXIDE 400MG TAB TAKE ONE-HALF TABLET BY MOUTH TWO TIMES A DAY VA RX: Medication prescribed by Non-VA provider. Non-VA METFORMIN HCL 500MG TAB TAKE ONE TABLET BY MOUTH TWO TIMES A DAY WITH BREAKFAST AND EVENING MEAL VA RX: Medication prescribed by Non-VA provider. Non-VA METOPROLOL SUCCINATE 50MG SA TAB TAKE ONE-HALF TABLET BY MOUTH EVERY MORNING VA RX: Medication prescribed by Non-VA provider. Non-VA SACUBITRIL 49MG/VALSARTAN 51MG TAB TAKE ONE-HALF TABLET BY MOUTH TWO TIMES A DAY VA RX: Medication prescribed by Non-VA provider. Non-VA SITAGLIPTIN PHOSPHATE 100MG TAB TAKE ONE TABLET BY MOUTH EVERY MORNING VA RX: Medication prescribed by Non-VA provider. Non-VA TAMSULOSIN HCL 0.4MG CAP TAKE 1 CAPSULE BY MOUTH ONCE A DAY VA RX: Medication prescribed by Non-VA provider. SUPPLIES Patient/family/caregiver educated and evaluated for understanding on Medications. The list was reviewed with and given to the patient/family/caregiver who were also educated on importance of sharing medication list with all VA providers and non-VA providers. For questions, please call your team nurse. Pertinent lab reviewed: N/A. Level of Understanding: Good /dori/ CHAPARRO LEWIS DO Signed: 09/02/2020 12:53 CHAPARRO LEWIS [facility] Sep 02, 2020 11:39 AM PRIMARY CARE RESIDENT NOTE: LOCAL TITLE: UT-GENERAL/PRIMARY CARE STANDARD TITLE: PRIMARY CARE RESIDENT NOTE DATE OF NOTE: SEP 02, 2020@11:39 ENTRY DATE: SEP 02, 2020@11:39:20 AUTHOR: CHAPARRO LEWIS EXP COSIGNER: URGENCY: STATUS: COMPLETED Chief Complaint: Patient presents for annual and to establish Family history significant father at age 70 with AAA and GI blood loss Mother at age 88 from diabetes Son age 50 from intracranial bleed after traumatic brain injury fall List of Problems: Diabetes, AAA, hypertension, hyperlipidemia, CVAs, Social history patient occasional alcohol no tobacco for more than 30 years Subjective: This 75-year-old with comanagement with Dr. Edna Juan in [facility]. Patient is doing very well his history of triple aneurism followed by abdominal surgeon in [place]. Patient reports his blood sugars have been relatively well controlled A1c 7.2 when last checked in February. 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 and he said bilateral knee replacements Still somewhat grieving natural grieving process for loss of his and son 2 years ago within 6 weeks of each other Remainder review of systems is negative Current Medicines: Active Outpatient Medications (excluding Supplies): Active Non-VA Medications Status 1) Non-VA ASPIRIN [...] 0.4 MG MOUTH ONCE A ACTIVE DAY Compared newly ordered medications and medication changes [...] Allergies: PENICILLIN Physical Exam: Vitals: Temperature - 98.2 F [36.8 C] (09/02/2020 10:36) Pulse - 72 (09/02/2020 10:36) Respiration - 20 (09/02/2020 10:36) Skin: Occasional seborrheic keratosis otherwise no suspicious lesions Lungs: Good air movement no rales or rhonchi Heart: / systolic ejection murmur Abdomen: No organomegaly or masses Back: No tenderness to percussion Genital: Deferred HY[employer] MECH[employer]IC: No motor sensory deficits Laboratory: Pending Radiology: Aorta Ultrasound to be scheduled 09/17 Assessment: Diabetes controlled Triple aortic aneurysm followed by surgery and cardiology Hypertension Hyperlipidemia Arthralgias with bilateral knee replacement Kidney stones recurrent 3 Orders: Labs today will contact with results Follow up 6 months time. Consults to be placed for comanagement with Dr. Juan in [facility] Patient allowed time to ask questions all answered Patient scheduled for 1st covid vaccination tomorrow 09/03/[address] primary care consults as I'm not able to at this time. /doir/ CHAPARRO LEWIS DO Signed: 09/02/2020 12:50 Receipt Acknowledged By: * AWAITING SIGNATURE * [facility]ES LEIVA [facility] Sep 02, 2020 10:17 AM NURSING OUTPATIENT NOTE: LOCAL TITLE: WI-NURSE/CBOC STANDARD TITLE: NURSING OUTPATIENT NOTE DATE OF NOTE: SEP 02, 2020@10:17 ENTRY DATE: SEP 02, 2020@10:17:30 AUTHOR: AQUILES LEIVA COSIGNER: URGENCY: STATUS: COMPLETED Reason for appointment: PCP Appointment Reason for appointment: New patient Is the patient diabetic? Yes - patient is a diabetic. Last HGBA1c value and time done: HGBA1c < 7, repeat in 6 months HGBA1c > 7, repeat in 3 months A1C to be completed today. Yes What is your goal for today's visit? *Required Is there anything in your life that worries or stresses you that we may assist you with today? *Required No Are you registered for My [facility] ([facility])? No - Are you interested in registering? No If 'yes' please hand My [facility] brochure. WI-LATEX REVIEW: Latex review for allergy: ...Patient denies latex allergy. Homelessness/Food Insecurity Screen: In the past 2 months, have you been living in stable housing that you own, rent, or stay in as part of a household? Yes - Living in stable housing. Are you worried or concerned that in the next 2 months you may NOT have stable housing that you own, rent, or stay in as part of a household? No - Not worried about housing near future The reports the following: Within the past 12 months I worried whether my food would run out before I got money to buy more. Never true Within the past 12 months the food I bought just didn't last and I didn't have money to get more. Never true MST Screening: Patient denies experiencing sexual trauma (MST) in the past. WI-ABUSE/NEGLECT SCREENING: Signs/Symptoms of Abuse: Abuse/Neglect Questions Does the patient feel safe in their current living arrangement? Yes Comments: Does the patient show any signs of abuse or neglect? No Comments: REPORT OF SUSPECTED ABUSE OR NEGLECT SOCIAL WORK CONSULTS: WI-DIAG RESULT (PERSON OR PHONE): Results will be mailed or phoned to patient when available. WI-HIV SCREENING (NATIONAL): Patient has been offered HIV testing and has declined. I have explained that HIV testing is recommended for all adults, even if all risk factors are absent. has viewed the HIV Screening video "One Step Ahead". No [place] was given the HIV Screening Pamphlet. No WI-LEARNING ASSESSMENT: Patient Learning Assessment Learning Needs Assessment ...Patient Readiness to Learn (Check if individual ready to learn): ...Patient is ready to learn. Will Patient Have Difficulty Understanding Information: ...No Educational Needs: Do you need further information with: Safe & effective use of medications? ...No Safe & effective use of equipment? (Home O2, prosthetics, Rehab Medicine) ...No Potential food/drug interaction? ...No Modified diet? (If referral -- to Dietitian) ...No Rehabilitation techniques or help with independent function? (If referral -- to Rehab Medicine) ...No Patient taught on rehabilitation techniques today. Community resources (If referral -- to [facility]/) ...No When/how to obtain further treatment? ...Yes Patient responsibilities in the treatment process? (Booklet) ...No Hygiene? (If taught - Handout/PHE given that includes grooming, bathing, oral health, hair and nail care and use of toilet.) ...No Information about disease process? (If taught - appropriate handout given) ...No Advanced directives? (Booklet) ...No WI-PAIN: Pain Reassessment-Patient's updated pain score after intervention is: PAIN Score 2 Pain Documentation: Pain level 3 or less. WI-FALL RISK OP: MARIEE FALL SCALE The Mariee Fall scale was performed and score was 0. This is indicative of low risk of falls. History of falling in past 3 months? No Secondary diagnosis: No Ambulatory aid: None/bedrest/nurse assist Intravenous therapy/Heparin lock: No Gait/Transferring: Normal/bed rest/immobile Mental Status: Oriented to own ability/knows own limitations OTHER RISK FACTORS No history of falls and no secondary diagnosis. Patient risk for falling: Low Risk pamphlet given to patient/family Is patient at risk for falling? Patient is NOT at risk for falling Is the patient 75 years of age or older? No Depression Screening: Perform PHQ-2 A PHQ-2 screen was performed. The score was 2 which is a negative screen for depression. Over the past two weeks, how often have you been bothered by the following problems? 1. Little interest or pleasure in doing things Several days 2. Feeling down, depressed, or hopeless Several days Suicide Screen: C-SSRS Screening [place] Suicide Severity Rating Scale (C-SSRS) screener 1. Over the past month, have you wished you were or wished you could go to sleep and not wake up? No 2. Over the past month, have you had any actual thoughts of killing yourself? No 3. Over the past month, have you been thinking about how you might do this? Response not required due to responses to other questions. 4. Over the past month, have you had these thoughts and had some intention of acting on them? Response not required due to responses to other questions. 5. Over the past month, have you started to work out or worked out the details of how to kill yourself? Response not required due to responses to other questions. 6. If yes, at any time in the past month did you intend to carry out this plan? Response not required due to responses to other questions. 7. In your lifetime, have you ever done anything, started to do anything, or prepared to do anything to end your life (for example, collected pills, obtained a gun, gave away valuables, went to the roof but didn't jump)? No 8. If YES, was this within the past 3 months? Response not required due to responses to other questions. PTSD Screening: PC-PTSD-5 A PTSD screening test (PC-PTSD-5) was negative (score=0). Have you ever had any experience that was so frightening, horrible or upsetting that, IN THE PAST MONTH, you: Have you ever experienced this kind of event? YES 1. Had nightmares about the event(s) or thought about the event(s) when you did not want to? NO 2. Tried hard not to think about the event(s) or went out of your way to avoid situations that reminded you of the event(s)? NO 3. Been constantly on guard, watchful, or easily startled? NO 4. [place] numb or detached from people, activities, or your surroundings? NO 5. [place] guilty or unable to stop blaming yourself or others for the event(s) or any problems the event(s) may have caused? NO Avg Risk Colorectal Cancer Screen: AVERAGE RISK colorectal cancer screening is due based on information available to this clinical reminder FOBT/FIT (Fecal Immunochemical Testing) has been ordered. See order tab for details. Herpes Zoster (Shingles) Vaccine: Deferred due to a precaution: Other significant precaution Details: receiving covid vaccine 09/03/20 Influenza Immunization: The patient has received the seasonal influenza vaccine for the current season at another location. Date: March, Exact date is unknown Location: [facility] Pneumococcal PPSV23 (Pneumovax): Other precaution: Comment: receiving covid vaccine tomorrow Tobacco Use Screening: The patient is a former tobacco user. The patient quit fifteen or more years ago. Alcohol Use Screen (AUDIT-C): Alcohol Screen: SCREEN FOR ALCOHOL (AUDIT-C) An alcohol screening test (AUDIT-C) was negative (score=1). 1. How often did you have a drink containing alcohol in the past year? Monthly or less 2. How many drinks containing alcohol did you have on a typical day when you were drinking in the past year? One or two drinks 3. How often did you have six or more drinks on one occasion in the past year? Never /es/ AQUILES LEIVA LPN Signed: 09/02/2020 10:40 AQUILES LEIVA OC
--- OUTSIDE RECORDS SUMMARY | 2021-08-07 18:55 | XMS REPORT | Encounter Summary ---
[facility] Address Unknown Phone Unavailable Support Name Relationship Address Phone Yvette BENITO Next Of Kin [address] [phone] Yvette BENITO ECON [address] [phone] Ariela BENITO Next Of Kin [address] [place] [address] Insurance Providers: All historical and [...] PROVIDER ORGANIZATION (PPO) ANGEL Jan 22, 1998 [id number] CHAPARRO BENITO PATIENT MEDICARE (WNR) MEDICARE (M) PART A Mar 04, 2015 PART A [id number] CHAPARRO BENITO PATIENT MEDICARE (WNR) MEDICARE (M) PART B Mar 04, 2015 PART B [id number] CHAPARRO BENITO PATIENT [id number] FOR LIFE WNR Mar 04, 2015 FOR LIFE [id number] CHAPARRO BENITO PATIENT Selected Encounter This section includes the information on record at [place] for the Encounter. Date/Time Encounter Type Encounter Description Reason Provider Source Sep 03, 2020 10:45 AM ADM SARSCOV2 100MCG/0.5ML1ST PRIMARY CARE/ MEDICINE ICD-10-CM Z23 Encounter for immunization with Provider Comments: Encounter for Immunization RUDY CARDONA IHE Encounter Template Text not used by [facility] Assessments - Encounter Diagnoses This section includes the primary and secondary diag noses documented for the Encounter. Date/Time Primary/Secondary Diagnosis Diagnosis Name Provider Source Sep 03, 2020 10:45 AM PRIMARY Encounter for immunization RUDY BURGESS DELFINA GORDON Plan of Treatment: Future Appointments (+ 6 months) and Future Tests (+/- 45 day s) The Plan of Treatment section includes future care activities for the patient fr om all [place] treatment facilities. This section includes future appointments and fu ture orders which are active, pending or scheduled. Future Appointments This section includes appointments that were scheduled t o occur 6 months from the date of the Encounter, up to a maximum of 20 appointme nts. The data comes from all [place] treatment facilities. Appointment Date/Time Appointment Type Appointment Facili ty Name Sep 08, 2020 08:00 AM AMBULATORY - NONE [facility], [facility] Oct 01, 2020 10:45 AM AMBULATORY - MEDICINE [facility] Oct 06, 2020 02:45 PM AMBULATORY - NONE [facility], [facility] Feb 26, 2021 02:30 PM AMBULATORY - NONE [facility], [facility] Mar 02, 2021 01:00 PM AMBULATORY - MEDICINE [facility] Surgical Procedures: All associated to the encounter This section includes all Surgical Procedures and Surgical Procedure Notes assoc iated to the Encounter. Surgical Procedures This section includes all Surgical Procedures associated to the Encounter. Surgical Procedure Date/Time Procedure Procedure Type Procedure Qualifiers Provider Source Sep 03, 2020 10:45 AM ADM SARSCOV2 100MCG/0.5ML1ST ADM SARSCOV2 100MCG/0.5ML1ST [facility] Surgical Notes There are no notes associated with this procedure. Lab Results: +/- 30 days of the encounter This section includes the Chemistry and Hematology Lab R esults on record with [place] for the patient. Radiology Reports and Pathology Report s are provided separately, in subsequent sections. Lab Results This section contains the Chemistry/Hematology Results petar t were resulted 30 days before or 30 days after the date of the Encounter. Date/Time Source Result Type Result - Unit Interpretation Reference Range Comment Sep 10, 2020 09:41 [facility]CC[facility]LOOD FIT X1 SCREEN Specimen Type: FECES No comment entered. Ordering Provider: CHAPARRO LEWIS Report Released Date/Time: Sep 02, 2020 10:40 AM Reporting Lab: [facility] [address] [facility] [address] Performing Lab: [facility] [address] [facility] [address] OCCULT BLOOD (FIT) #1 OF 1 Negative Neg ative Sep 02, 2020 11:30 AM [facility] COMPREHENSIVE METABOLIC PA TORIBIO Specimen Type: PLASMA Comment: Race unknown, if multiply result by . Ordering Provider: CHAPARRO LEWIS Report Released Date/Time: Aug 27, 2020 09:04 AM Reporting Lab: [facility] [address] [facility] [address] Performing Lab: [facility] [address] [facility] [address] *CREATININE 0.86 mg/dL 0.70-1.30 UREA NITROGEN mg/dL [...] EGFR 86.9 Sep 02, 2020 11:30 AM [facility] LIPID PROFILE(HDL,TRIG,CHO L,LDL) Specimen Type: PLASMA Comment: Race unknown, if multiply result by .210 Ordering Provider: CHAPARRO LEWIS Report Released Date/Time: Aug 27, 2020 09:04 AM Reporting Lab: [facility] [address] [facility] [address] Performing Lab: [facility] [place] [address] [facility] [address] CHOLESTEROL 146 mg/dL 0-200 TRIGS 119 mg/dL 0-150 HDL-CHOLESTEROL 45 mg/dL > 40 LDL (CALC) 77.0 mg/dL Sep 02, 2020 11:30 AM [facility] TSH Specimen T ype: SERUM No comment entered. Ordering Provider: CHAPARRO LEWIS Report Released Date/Time: Aug 27, 2020 09:04 AM Reporting Lab: [facility] [address] [facility] [address] Performing Lab: [facility] [address] [facility] [address] TSH 0.93 uIU/mL 0.47-5 Sep 02, 2020 11:30 AM [facility] PROSTATIC SPECIFIC ANTIGEN (TOTAL) Specimen Type: SERUM No comment entered. Ordering Provider: CHAPARRO LEWIS Report Released Date/Time: Aug 27, 2020 09:04 AM Reporting Lab: [facility] [address] [facility] [address] Performing Lab: [facility] [address] [facility] [address] PROSTATIC SPECIFIC ANTIGEN(TOTAL) 1.1 ng/mL 0-4 Sep 02, 2020 11:30 AM [facility] HEMOGLOBIN A1C Specimen T ype: BLOOD No comment entered. Ordering Provider: CHAPARRO LEWIS Report Released Date/Time: Aug 27, 2020 09:04 AM Reporting Lab: [facility] [address] [facility] [address] Performing Lab: [facility] [address] [facility] [address] HEMOGLOBIN A1C 6.9 % H 4.0-6.0 Sep 02, 2020 11:30 AM [facility] URINALYSIS Specimen T ype: URINE No comment entered. Ordering Provider: CHAPARRO LEWIS Report Released Date/Time: Aug 27, 2020 09:04 AM Reporting Lab: [facility] [address] [facility] [address] Performing Lab: [facility] [place] [address] [facility] [address] URINE COLOR Yellow SPECIFIC GRAVITY 1.015 1.005-1.030 [...] /HPF Sep 02, 2020 11:30 AM [facility] MICROALBUMIN (,MI) RANDO M URINE Specimen Type: URINE No comment entered. Ordering Provider: CHAPARRO LEWIS Report Released Date/Time: Aug 27, 2020 09:04 AM Reporting Lab: [facility] [address] [address] Performing Lab: [facility] [address] [address] *MICROALBUMIN,RAND 12 ug/mL 0-29 *MICROALB/CREAT 18 mcg/mg cr 0-29 *UR CREATININE 68.7 mg/dL Sep 02, 2020 11:30 AM [facility] GORDON CBC & DIFF Specimen T ype: BLOOD No comment entered. Ordering Provider: CHAPARRO LEWIS Report Released Date/Time: Aug 27, 2020 09:04 AM Reporting Lab: [facility] [address] [address] Performing Lab: [facility] [address] [address] WBC 6.8 K/cmm 3.60-11.20 RBC 4.86 M/ul [...] Encounter. Immunization Series Date Issued Reaction Comments COVID-19 (MODERNA), MRNA, LNP-S, PF, 100 MCG/0.5 ML DOSE 1 Sep 03, 2020 MOD; [id number]; 02/22/2021 Social History: Smoking Status (Most current) and Tobacco Use (All prior to enco unter date) This section includes the most current, and the historical, smoking and tobacco- related health factors from the [place] facility where the Encounter took place. Current Smoking Status This section includes the most current smoking, or tobacco -related health factor, from the [place] facility where the Encounter took place. Date/Time Current Smoking Status Comment Facility Sep 02, 2020 10:30 AM [place]-[facility] FORMER US[facility] Tobacco Use History This section includes a history of the smoking, or tobacco -related health factors, that were collected on or before the date of the Encoun ter. The data comes from the [place] facility where the Encounter took place. Date/Time Smoking Status/Tobacco Use Comment [facility] Sep 02, 2020 10:30 AM [place]-TOBACCO QUIT 15 YRS OR MORE [place] [facility] [...] Encounter Note(s) Provider Source Sep 03, 2020 10:44 AM NURSING IMMUNIZATION NOTE: LOCAL TITLE: VAAEAriela NSG COVID-19 VACCINE ADMINISTRATION STANDARD TITLE: NURSING IMMUNIZATION NOTE DATE OF NOTE: SEP 03, 2020@10:44 ENTRY DATE: SEP 03, 2020@10:44:37 AUTHOR: RUDY CARDONA EXP COSIGNER: URGENCY: STATUS: COMPLETED The patient was given the EUA fact sheet for this vaccine which lists the benefits and side effects of the vaccine and which reviews the risks of the vaccine. The fact sheet was reviewed with the patient and they were given an opportunity to ask questions. The patient denied any prior severe reaction to this vaccine or its components or a severe allergic reaction such as anaphylaxis to any vaccine or to any injectable therapy. The patient gave verbal consent to receive the vaccine. Dose #1 The patient received Moderna COVID-19 Vaccine 0.5 ml IM. MVX (Manuf); Lot#; Exp Date: MOD; [id number]; 02/22/2021 Administration Anatomic site: Left Deltoid Vaccine administered without complications. The patient was advised to remain in the facility for 15 minutes post vaccination. The patient was given a completed COVID-19 vaccination record card, a copy of the [place] Side Effects and Adverse Events Reporting Fact Sheet and instructed on how to report any adverse reactions. The patient was given information on the need to return for another dose of vaccine in 28 days. /dori/ RUDY CARDONA STAFF NURSE Signed: 09/03/2020 10:45 RUDY CARDONA [facility]
--- OUTSIDE RECORDS SUMMARY | 2021-08-07 18:55 | XMS REPORT | Encounter Summary ---
[facility] Organization Department [facility] Address Unknown Phone Unavailable Support Name Relationship Address Phone Yvette BENITO Next Of Kin [address] [phone] Yvette BENITO ECON [address] [phone] Ariela BENITO Next Of Kin [address] [place] [address] Insurance Providers: All historical and [...] Raphael's Name Patient's Relationship to Policy Raphael [facility] [place] PREFERRED PROVIDER ORGANIZATION (PPO) ANGEL Jan 22, 1998 [id number] CHAPARRO BENITO PATIENT MEDICARE (WNR) MEDICARE (M) PART A Mar 04, 2015 PART A [id number] CHAPARRO BENITO PATIENT MEDICARE (WNR) MEDICARE (M) PART B Mar 04, 2015 PART B [id number] CHAPARRO BENITO PATIENT [id number] FOR LIFE WNR Mar 04, 2015 FOR LIFE [id number] CHAPARRO BENITO PATIENT Selected Encounter This section includes the information on record at [place] for the Encounter. Date/Time Encounter Type Encounter Description Reason Provider Source Sep 11, 2020 07:41 AM Outpatient Encounter COMMUNITY CARE CONSULT IHE Encounter Template Text not used by [place] Assessments - Encounter Diagnoses No Data Provided for This Section Plan of Treatment: Future Appointments (+ 6 months) and Future Tests (+/- 45 day s) The Plan of Treatment section includes future care activities for the patient fr om all [place] treatment facilities. This section includes future appointments and fu ture orders which are active, pending or scheduled. Future Appointments This section includes appointments that were scheduled t o occur 6 months from the date of the Encounter, up to a maximum of 20 appointme nts. The data comes from all [place] treatment facilities. Appointment Date/Time Appointment Type Appointment Facili ty Name Oct 01, 2020 10:45 AM AMBULATORY - MEDICINE [facility] Oct 06, 2020 02:45 PM AMBULATORY - NONE [facility] T, [facility] Feb 26, 2021 02:30 PM AMBULATORY - NONE [facility] T, [facility] Mar 02, 2021 01:00 PM AMBULATORY - MEDICINE [facility] Surgical Procedures: All associated to the encounter No Data Provided for This Section Lab Results: +/- 30 days of the encounter This section includes the Chemistry and Hematology Lab R esults on record with [place] for the patient. Radiology Reports and Pathology Report s are provided separately, in subsequent sections. Lab Results This section contains the Chemistry/Hematology Results petar t were resulted 30 days before or 30 days after the date of the Encounter. Date/Time Source Result Type Result - Unit Interpretation Reference Range Comment Sep 10, 2020 09:41 AM [facility] OCCULT BLOOD FIT X1 SCREEN Specimen Type: FECES No comment entered. Ordering Provider: CHAPARRO LEWIS Report Released Date/Time: Sep 02, 2020 10:40 AM Reporting Lab: [facility] [address] [facility] [address] Performing Lab: [facility] [address] [facility] [address] OCCULT BLOOD (FIT) #1 OF 1 Negative Neg ative Sep 02, 2020 11:30 AM [facility] COMPREHENSIVE METABOLIC PA TORIBIO Specimen Type: PLASMA Comment: Race unknown, if multiply result by 1.210 Ordering Provider: CHAPARRO LEWIS Report Released Date/Time: Aug 27, 2020 09:04 AM Reporting Lab: [facility] [address] [facility] [address] Performing Lab: [facility] [place] [address] [facility] [address] *CREATININE 0.86 mg/dL 0.70-1.30 UREA NITROGEN mg/dL [...] 2020 09:04 AM Reporting Lab: [facility] [address] [address] Performing Lab: [facility] [place] [address] CHOLESTEROL 146 mg/dL 0-200 TRIGS 119 mg/dL 0-150 HDL-CHOLESTEROL 45 mg/dL > 40 LDL (CALC) 77.0 mg/dL Sep 02, 2020 11:30 AM [facility] TSH Specimen T ype: SERUM No comment entered. Ordering Provider: CHAPARRO LEWIS Report Released Date/Time: Aug 27, 2020 09:04 AM Reporting Lab: [facility] [address] [address] Performing Lab: [facility] [address] [address] TSH 0.93 uIU/mL 0.47-5 Sep 02, 2020 11:30 AM [facility] PROSTATIC SPECIFIC ANTIGEN (TOTAL) Specimen Type: SERUM No comment entered. Ordering Provider: CHAPARRO LEWIS Report Released Date/Time: Aug 27, 2020 09:04 AM Reporting Lab: [facility] [address] [facility] [address] Performing Lab: [facility] [address] [place] [phone] PROSTATIC SPECIFIC ANTIGEN(TOTAL) 1.1 ng/mL 0-4 Sep 02, 2020 11:30 AM [facility] HEMOGLOBIN A1C Specimen T ype: BLOOD No comment entered. Ordering Provider: CHAPARRO LEWIS Report Released Date/Time: Aug 27, 2020 09:04 AM Reporting Lab: [facility] [address] [facility] [address] Performing Lab: [facility] [address] [facility] [address] HEMOGLOBIN A1C 6.9 % H 4.0-6.0 Sep 02, 2020 11:30 AM [facility] URINALYSIS Specimen T ype: URINE No comment entered. Ordering Provider: CHAPARRO LEWIS Report Released Date/Time: Aug 27, 2020 09:04 AM Reporting Lab: [facility] [address] [facility] [address] Performing Lab: [facility] [address] [facility] [address] URINE COLOR Yellow SPECIFIC GRAVITY 1.015 1.005-1.030 [...] 2020 09:04 AM Reporting Lab: [facility] [address] [facility] [address] Performing Lab: [facility] [place] [address] [facility] [address] *MICROALBUMIN,RAND 12 ug/mL 0-29 *MICROALB/CREAT 18 mcg/mg cr 0-29 *UR CREATININE 68.7 mg/dL Sep 02, 2020 11:30 AM [facility] CBC & DIFF Specimen T ype: BLOOD No comment entered. Ordering Provider: CHAPARRO LEWIS Report Released Date/Time: Aug 27, 2020 09:04 AM Reporting Lab: [facility] [place] [address] [facility] [address] Performing Lab: [facility] [place] [address] [facility] [address] WBC 6.8 K/cmm 3.60-11.20 RBC 4.86 M/ul [...] Encounter. Date/Time Encounter Note(s) Provider Source Sep 11, 2020 07:48 AM NONVA NOTE: LOCAL TITLE: COMMUNITY CARE-REQUEST FOR SERVICES NOTE [place] STANDARD TITLE: NONVA NOTE DATE OF NOTE: SEP 11, 2020@07:48 ENTRY DATE: SEP 11, 2020@07:48:44 AUTHOR: JUAN C WHITTEN COSIGNER: URGENCY: STATUS: COMPLETED COMMUNITY CARE-REQUEST FOR SERVICES NOTE [place] Has ADDENDA A Request for Service (RFS) form has been received which includes the following: Name of ordering provider: REBECA MCKEON D.O. [address] [place] [id number] Specific type(s) of service(s) ordered on RFS Vendor above is requesting see Urologist for managment of Kidney Stones and overall Urology care. [facility] PLEASE UPLOAD DOCUMENTS TO [employer] [facility] FOR REVIEW. /dori/ JUAN C WHITTEN RN, BSN OCC RN Signed: 09/11/2020 07:50 Receipt Acknowledged By: 09/11/2020 14:18 /dori/ LES LUCIO AMSA 09/11/2020 ADDENDUM STATUS: COMPLETED Adding additional signer. /vane HARRY AMSA Signed: 09/11/2020 14:24 Receipt Acknowledged By: * AWAITING SIGNATURE * JUAN C WHITTEN JESSICA R [facility]
--- OUTSIDE RECORDS SUMMARY | 2021-08-07 18:55 | XMS REPORT ---
[facility] Address Unknown Phone Unavailable Support Name Relationship Address Phone Yvette BENITO Next Of Kin [address] [id number] Yvette BENITO ECON [address] [phone] Ariela BENITO Next Of Kin [address] [place] [address] Insurance Providers: All historical and [...] Patient's Relationship to Policy Raphael [facility] [place] PREFERRED PROVIDER ORGANIZATION (PPO) ANGEL Jan 22, 1998 [id number] CHAPARRO BENITO PATIENT MEDICARE (WNR) MEDICARE (M) PART A Mar 04, 2015 PART A [id number] CHAPARRO BENITO PATIENT MEDICARE (WNR) MEDICARE (M) PART B Mar 04, 2015 PART B [id number] CHAPARRO BENITO PATIENT [id number] FOR LIFE WNR Mar 04, 2015 FOR LIFE [id number] CHAPARRO BENITO PATIENT Selected Encounter This section includes the information on record at [place] for the Encounter. Date/Time Encounter Type Encounter Description Reason Provider Source Sep 02, 2020 12:00 AM Outpatient Encounter EVENT (HISTORICAL) IHE Encounter Template Text not used by [place] Assessments - Encounter Diagnoses No Data Provided for This Section Plan of Treatment: Future Appointments (+ 6 months) and Future Tests (+/- 45 day s) The Plan of Treatment section includes future care activities for the patient fr om all [place] treatment facilities. This section includes future appointments and fu ture orders which are active, pending or scheduled. Future Appointments This section includes appointments that were scheduled t o occur 6 months from the date of the Encounter, up to a maximum of 20 appointme nts. The data comes from all [place] treatment facilities. Appointment Date/Time Appointment Type Appointment Facili ty Name Sep 03, 2020 10:45 AM [facility]ULATORY - MEDIC[facility] Sep 08, 2020 08:00 AM AMBULATORY - NONE [facility] Oct 01, 2020 10:45 AM [facility]ORY [facility] Oct 06, 2020 02:45 PM AMBULATORY - NONE [facility] Feb 26, 2021 02:30 PM AMBULATORY - NONE [facility] Mar 02, 2021 01:00 PM [facility]INE [facility] Surgical Procedures: All associated to the encounter No Data Provided for This Section Lab Results: +/- 30 days of the encounter This section includes the Chemistry and Hematology Lab R esults on record with [place] for the patient. Radiology Reports and Pathology Report s are provided separately, in subsequent sections. Lab Results This section contains the Chemistry/Hematology Results petar t were resulted 30 days before or 30 days after the date of the Encounter. Date/Time Source Result Type Result - Unit Interpretation Reference Range Comment Sep 10, 2020 09:41 AM [facility] OCCULT BLOOD FIT X1 SCREEN Specimen Type: FECES No comment entered. Ordering Provider: CHAPARRO LEWIS Report Released Date/Time: Sep 02, 2020 10:40 AM Reporting Lab: [facility] [address] [facility] [address] Performing Lab: [facility] [address] [facility] [address] OCCULT BLOOD (FIT) #1 OF 1 Negative Neg ative Sep 02, 2020 11:30 AM [facility] COMPREHENSIVE METABOLIC PA TORIBIO Specimen Type: PLASMA Comment: Race unknown, if multiply result by 1.210 Ordering Provider: CHAPARRO LEWIS Report Released Date/Time: Aug 27, 2020 09:04 AM Reporting Lab: [facility] [address] [facility] [address] Performing Lab: [facility] [address] [facility] [address] *CREATININE 0.86 mg/dL 0.70-1.30 UREA NITROGEN mg/dL [...] 2020 09:04 AM Reporting Lab: [facility] [address] [facility] [address] Performing Lab: [facility] [address] [facility] [address] CHOLESTEROL 146 mg/dL 0-200 TRIGS 119 mg/dL 0-150 HDL-CHOLESTEROL 45 mg/dL > 40 LDL (CALC) 77.0 mg/dL Sep 02, 2020 11:30 AM [facility] TSH Specimen T ype: SERUM No comment entered. Ordering Provider: CHAPARRO LEWIS Report Released Date/Time: Aug 27, 2020 09:04 AM Reporting Lab: [facility] [address] [facility] [address] Performing Lab: [facility] [address] [facility] [address] TSH 0.93 uIU/mL 0.47-5 Sep 02, 2020 11:30 AM [facility] PROSTATIC SPECIFIC ANTIGEN (TOTAL) Specimen Type: SERUM No comment entered. Ordering Provider: CHAPARRO LEWIS Report Released Date/Time: Aug 27, 2020 09:04 AM Reporting Lab: [facility] [address] [place] [address] Performing Lab: [facility] [address] PROSTATIC SPECIFIC ANTIGEN(TOTAL) 1.1 ng/mL 0-4 Sep 02, 2020 11:30 AM [facility] HEMOGLOBIN A1C Specimen T ype: BLOOD No comment entered. Ordering Provider: CHAPARRO LEWIS Report Released Date/Time: Aug 27, 2020 09:04 AM Reporting Lab: [facility] [place] [address] [place] [address] Performing Lab: [facility] [place] [address] HEMOGLOBIN A1C 6.9 % H 4.0-6.0 Sep 02, 2020 11:30 AM [facility] URINALYSIS Specimen T ype: URINE No comment entered. Ordering Provider: CHAPARRO LEWIS Report Released Date/Time: Aug 27, 2020 09:04 AM Reporting Lab: [facility] [address] [place] [address] Performing Lab: [facility] [place] [address] [place] [address] URINE COLOR Yellow SPECIFIC GRAVITY 1.015 1.005-1.030 [...] 02, 2020 11:30 AM [facility] MICROALBUMIN (JOSE,IA) RANDO M URINE Specimen Type: URINE No comment entered. Ordering Provider: CHAPARRO LEWIS Report Released Date/Time: Aug 27, 2020 09:04 AM Reporting Lab: [facility] [address] [facility] [address] Performing Lab: [facility] [place] [address] [facility] [address] *MICROALBUMIN,RAND 12 ug/mL 0-29 *MICROALB/CREAT 18 mcg/mg cr 0-29 *UR CREATININE 68.7 mg/dL Sep 02, 2020 11:30 AM [facility] CBC & DIFF Specimen T ype: BLOOD No comment entered. Ordering Provider: CHAPARRO LEWIS Report Released Date/Time: Aug 27, 2020 09:04 AM Reporting Lab: [facility] [address] [facility] [address] Performing Lab: [facility] [place] [address] [facility] [address] WBC 6.8 K/cmm 3.60-11.20 RBC 4.86 M/ul [...] Section Encounter Notes: All associated encounter notes No Data Provided for This Section
--- OUTSIDE RECORDS SUMMARY | 2021-08-07 18:55 | XMS REPORT | Encounter Summary ---
Author [facility] Address Unknown Phone Unavailable Support Name Relationship Address Phone Yvette BENITO Next Of Kin [address] [phone] Yvette BENITO ECON [address] [phone] Ariela BENITO Next Of Kin [address] [place] [address] Insurance Providers: All historical and [...] PROVIDER ORGANIZATION (PPO) ANGEL Jan 22, 1998 [id number] CHAPARRO BENITO PATIENT MEDICARE (WNR) MEDICARE (M) PART A Mar 04, 2015 PART A [id number] CHAPARRO BENITO PATIENT MEDICARE (WNR) MEDICARE (M) PART B Mar 04, 2015 PART B [id number] [id number] [phone] CHAPARRO BENITO PATIENT [id number] FOR LIFE WNR Mar 04, 2015 FOR LIFE [id number] CHAPARRO BENITO PATIENT Selected Encounter This section includes the information on record at [place] for the Encounter. Date/Time Encounter Type Encounter Description Reason Provider Source Oct 01, 2020 10:45 AM ADM SARSCOV2 100MCG/0.5ML2ND PRIMARY CARE/ MEDICINE ICD-10-CM Z23 Encounter for immunization with Provider Comments: Encounter for Immunization CARREONDESTINY FERRARI Encounter Template Text not used by [place] Assessments - Encounter Diagnoses This section includes the primary and secondary diag noses documented for the Encounter. Date/Time Primary/Secondary Diagnosis Diagnosis Name Provider Source Oct 01, 2020 10:49 AM PRIMARY Encounter for immunization DESTINY MULLER DELFINA GORDON Plan of Treatment: Future Appointments (+ 6 months) and Future Tests (+/- 45 day s) The Plan of Treatment section includes future care activities for the patient fr om all [place] treatment facilities. This section includes future appointments and fu ture orders which are active, pending or scheduled. Future Appointments This section includes appointments that were scheduled t o occur 6 months from the date of the Encounter, up to a maximum of 20 appointme nts. The data comes from all [place] treatment facilities. Appointment Date/Time Appointment Type Appointment Facili ty Name Oct 06, 2020 02:45 PM AMBULATORY - NONE [facility] T, [facility] Feb 26, 2021 02:30 PM AMBULATORY - NONE [facility], [facility] Mar 02, 2021 01:00 PM AMBULATORY - MEDICINE [facility] Surgical Procedures: All associated to the encounter This section includes all Surgical Procedures and Surgical Procedure Notes assoc iated to the Encounter. Surgical Procedures This section includes all Surgical Procedures associated to the Encounter. Surgical Procedure Date/Time Procedure Procedure Type Procedure Qualifiers Provider Source Oct 01, 2020 10:45 AM ADM SARSCOV2 100MCG/0.5ML2ND ADM SARSCOV2 100MCG/0.5ML2ND [facility] Surgical Notes There are no notes associated with this procedure. Lab Results: +/- 30 days of the encounter This section includes the Chemistry and Hematology Lab R esults on record with [place] for the patient. Radiology Reports and Pathology Report s are provided separately, in subsequent sections. Lab Results This section contains the Chemistry/Hematology Results petar t were resulted 30 days before or 30 days after the date of the Encounter. Date/Time Source Result Type Result - Unit Interpretation Reference Range Comment Sep 10, 2020 09:41 AM [facility] OCCULT BLOOD FIT X1 SCREEN Specimen Type: FECES No comment entered. Ordering Provider: CHAPARRO LEWIS Report Released Date/Time: Sep 02, 2020 10:40 AM Reporting Lab: [facility] [address] [facility] [address] Performing Lab: [facility] [address] [facility] [address] OCCULT BLOOD (FIT) #1 OF 1 Negative Neg ative Sep 02, 2020 11:30 AM [facility] COMPREHENSIVE METABOLIC PA TORIBIO Specimen Type: PLASMA Comment: Race unknown, if multiply result by .210 Ordering Provider: CHAPARRO LEWIS Report Released Date/Time: Aug 27, 2020 09:04 AM Reporting Lab: [facility] [address] [facility] [address] Performing Lab: [facility] [address] [facility] [address] *CREATININE 0.86 mg/dL 0.70-1.30 UREA NITROGEN mg/dL [...] EGFR 86.9 Sep 02, 2020 11:30 AM [facility] LIPID PROFILE(HDL,TRIG,CHO L,LDL) Specimen Type: PLASMA Comment: Race unknown, if multiply result by .210 Ordering Provider: CHAPARRO LEWIS Report Released Date/Time: Aug 27, 2020 09:04 AM Reporting Lab: [facility] [address] [facility] [address] Performing Lab: [facility] [address] [facility] [address] CHOLESTEROL 146 mg/dL 0-200 TRIGS 119 mg/dL 0-150 HDL-CHOLESTEROL 45 mg/dL > 40 LDL (CALC) 77.0 mg/dL Sep 02, 2020 11:30 AM [facility] TSH Specimen T ype: SERUM No comment entered. Ordering Provider: CHAPARRO LEWIS Report Released Date/Time: Aug 27, 2020 09:04 AM Reporting Lab: [facility] [address] [facility] [address] Performing Lab: [facility] [address] [place] [address] TSH 0.93 uIU/mL 0.47-5 Sep 02, 2020 11:30 AM [facility] PROSTATIC SPECIFIC ANTIGEN (TOTAL) Specimen Type: SERUM No comment entered. Ordering Provider: CHAPARRO LEWIS Report Released Date/Time: Aug 27, 2020 09:04 AM Reporting Lab: [facility] [address] [facility] [address] Performing Lab: [facility] [address] [facility] [address] PROSTATIC SPECIFIC ANTIGEN(TOTAL) 1.1 ng/mL 0-4 Sep 02, 2020 11:30 AM [facility] HEMOGLOBIN A1C Specimen T ype: BLOOD No comment entered. Ordering Provider: CHAPARRO LEWIS Report Released Date/Time: Aug 27, 2020 09:04 AM Reporting Lab: [facility] [address] [facility] [address] Performing Lab: [facility] [address] [facility] [address] HEMOGLOBIN A1C 6.9 % H 4.0-6.0 Sep 02, 2020 11:30 AM [facility] URINALYSIS Specimen T ype: URINE No comment entered. Ordering Provider: CHAPARRO LEWIS Report Released Date/Time: Aug 27, 2020 09:04 AM Reporting Lab: [facility] [address] [facility] [address] Performing Lab: [facility] [address] [facility] [address] URINE COLOR Yellow SPECIFIC GRAVITY 1.015 1.005-1.030 [...] Trace /HPF Sep 02, 2020 11:30 AM [facility]CRO[facility]IN (,DC) RANDO M URINE Specimen Type: URINE No comment entered. Ordering Provider: CHAPARRO LEWIS Report Released Date/Time: Aug 27, 2020 09:04 AM Reporting Lab: [facility] [address] [facility] [address] Performing Lab: [facility] [address] [facility] [address] *MICROALBUMIN,RAND 12 ug/mL 0-29 *MICROALB/CREAT 18 mcg/mg cr 0-29 *UR CREATININE 68.7 mg/dL Sep 02, 2020 11:30 AM [facility] CBC & DIFF Specimen T ype: BLOOD No comment entered. Ordering Provider: CHAPARRO LEWIS Report Released Date/Time: Aug 27, 2020 09:04 AM Reporting Lab: [facility] [address] [facility] [address] Performing Lab: [facility] [place] [address] [facility] [address] WBC 6.8 K/cmm 3.60-11.20 RBC 4.86 M/ul [...] MRNA, LNP-S, PF, 100 MCG/0.5 ML DOSE 2 Oct 01, 2020 MOD; [id number]; 03/19/2021 Social History: Smoking Status (Most current) and Tobacco Use (All prior to enco unter date) This section includes the most current, and the historical, smoking and tobacco- related health factors from the [place] facility where the Encounter took place. Current Smoking Status This section includes the most current smoking, or tobacco -related health factor, from the [place] facility where the Encounter took place. Date/Time Current Smoking Status Comment Facility Sep 02, 2020 10:30 AM [place]-TOBACCO FORMER USER [facility] Tobacco Use History This section includes a history of the smoking, or tobacco -related health factors, that were collected on or before the date of the Encoun ter. The data comes from the [place] facility where the Encounter took place. Date/Time Smoking Status/Tobacco Use Comment [facility] it Sep 02, 2020 10:30 AM [place]-TOBACCO QUIT 15 YRS OR MORE [place] [facility] [...] Encounter. Date/Time Encounter Note(s) Provider Source Oct 01, 2020 10:48 AM NURSING IMMUNIZATION NOTE: LOCAL TITLE: [facility] COVID-19 VACCINE ADMINISTRATION STANDARD TITLE: NURSING IMMUNIZATION NOTE DATE OF NOTE: OCT 01, 2020@10:48 ENTRY DATE: OCT 01, 2020@10:48:28 AUTHOR: DESTINY CARREON EXP COSIGNER: URGENCY: STATUS: COMPLETED The patient [...] verbal consent to receive the vaccine. Dose #2 The patient received Moderna COVID-19 Vaccine 0.5 ml IM. MVX (Manuf); Lot#; Exp Date: MOD; [id number]; 03/19/2021 Administration Anatomic site: Left Deltoid Vaccine administered without complications. The patient was advised to remain in the facility for 15 minutes post vaccination. The patient was given a completed COVID-19 vaccination record card, a copy of the [place] Side Effects and Adverse Events Reporting Fact Sheet and instructed on how to report any adverse reactions. Vaccine administered by policy/protocol. /dori/ DESTINY GORDON LPN Signed: 10/01/2020 10:49 DESTNIY CARREON
--- OUTSIDE RECORDS SUMMARY | 2021-08-07 18:55 | XMS REPORT | Encounter Summary ---
Author [facility] Address Unknown Phone Unavailable Support Name Relationship Address Phone Yvette BENITO Next Of Kin [address] [phone] Yvette BENITO ECON [address] [phone] Ariela BENITO Next Of Kin [address] [place] [address] Insurance Providers: All historical and [...] PROVIDER ORGANIZATION (PPO) ANGEL Jan 22, 1998 [id number] CHAPARRO BENITO PATIENT MEDICARE (WNR) MEDICARE (M) PART A Mar 04, 2015 PART A [id number] [phone] CHAPARRO BENITO PATIENT MEDICARE (WNR) MEDICARE (M) PART B Mar 04, 2015 PART B [id number] [phone] JIGNACHAPARRO [place] PATIENT [id number] FOR LIFE WNR Mar 04, 2015 FOR LIFE [id number] CHAPARRO BENITO PATIENT Selected Encounter This section includes the information on [place] for [place] Encounter. Date/Time Encounter Type Encounter Description Reason Provider Source Sep 01, 2020 01:52 PM HC PRO PHONE CALL 5-10 MIN TELEPHONE PRIMA RY CARE ICD-10-CM Z71.89 Other specified counseling with Provider Comments: Other specified counseling DESTINY CARREON Encounter Template Text not used by [facility] Assessments - Encounter Diagnoses This section includes the primary and secondary diag noses documented for the Encounter. Date/Time Primary/Secondary Diagnosis Diagnosis Name Provider Source Sep 01, 2020 01:52 PM PRIMARY Other specified counseling DESTINY MULLER Plan of Treatment: Future Appointments (+ 6 [...] Appointment Type Appointment Facili ty Name Sep 02, 2020 10:30 AM [facility] Sep 03, 2020 10:45 AM [facility] Sep 08, 2020 08:00 AM AM[facility]ULATORY - NONE [facility], [facility] 15 Oct 01, 2020 10:45 AM [facility] Oct 06, 2020 02:45 PM AMBULATORY - NONE [facility], [facility] 15 Feb 26, 2021 02:30 PM AMBULATORY - NONE [facility] 15 Surgical Procedures: All associated to the encounter This section includes all Surgical Procedures and Surgical Procedure Notes assoc iated to the Encounter. Surgical Procedures This section includes all Surgical Procedures associated to the Encounter. Surgical Procedure Date/Time Procedure Procedure Type Procedure Qualifiers Provider Source Sep 01, 2020 01:52 PM HC PRO PHONE CALL 5-10 MIN HC PRO PHONE CALL 5-10 MIN DESTINY CARREON Surgical Notes There are no notes associated with this procedure. Lab Results: +/- 30 days of the encounter This section includes the Chemistry and Hematology Lab R esults on record with [place] for the patient. Radiology Reports and Pathology Report s are provided separately, in subsequent sections. Lab Results This section contains the Chemistry/Hematology Results petar t were resulted 30 days before or 30 days after the date of the Encounter. Date/Time Source Result Type Result - Unit Interpretation Reference Range Comment Sep 10, 2020 09:41 AM [facility] OCCULT BLOOD FIT X1 SCREEN Specimen Type: FECES No comment entered. Ordering Provider: CHAPARRO LEWIS Report Released Date/Time: Sep 02, 2020 10:40 AM Reporting Lab: [facility] [address] [address] Performing Lab: [facility] [address] [facility] [address] OCCULT BLOOD (FIT) #1 OF 1 Negative Neg ative Sep 02, 2020 11:30 AM [facility] COMPREHENSIVE METABOLIC PA TORIBIO Specimen Type: PLASMA Comment: Race unknown, if multiply result by 210 Ordering Provider: CHAPARRO LEWIS Report Released Date/Time: Aug 27, 2020 09:04 AM Reporting Lab: [facility] [address] [facility] [address] Performing Lab: [facility] [address] [facility] [address] *CREATININE 0.86 mg/dL 0.70-1.30 UREA NITROGEN mg/dL [...] EGFR 86.9 Sep 02, 2020 11:30 AM [facility] LIPID PROFILE(HDL,TRIG,CHO L,LDL) Specimen Type: PLASMA Comment: Race unknown, if multiply result by .210 Ordering Provider: CHAPARRO LEWIS Report Released Date/Time: Aug 27, 2020 09:04 AM Reporting Lab: [facility] [address] [address] Performing Lab: [facility] [place] [address] [address] CHOLESTEROL 146 mg/dL 0-200 TRIGS 119 mg/dL 0-150 HDL-CHOLESTEROL 45 mg/dL > 40 LDL (CALC) 77.0 mg/dL Sep 02, 2020 11:30 AM [facility] TSH Specimen T ype: SERUM No comment entered. Ordering Provider: CHAPARRO LEWIS Report Released Date/Time: Aug 27, 2020 09:04 AM Reporting Lab: [facility] [address] [address] Performing Lab: [facility] [address] [place] [phone] TSH 0.93 uIU/mL 0.47-5 Sep 02, 2020 11:30 AM [facility] PROSTATIC SPECIFIC ANTIGEN (TOTAL) Specimen Type: SERUM No comment entered. Ordering Provider: CHAPARRO LEWIS Report Released Date/Time: Aug 27, 2020 09:04 AM Reporting Lab: [facility] [address] [facility] [address] Performing Lab: [facility] [address] [facility] [address] PROSTATIC SPECIFIC ANTIGEN(TOTAL) 1.1 ng/mL 0-4 Sep 02, 2020 11:30 AM [facility] HEMOGLOBIN A1C Specimen T ype: BLOOD No comment entered. Ordering Provider: CHAPARRO LEWIS Report Released Date/Time: Aug 27, 2020 09:04 AM Reporting Lab: [facility] [address] [facility] [address] Performing Lab: [facility] [address] [facility] [address] HEMOGLOBIN A1C 6.9 % H 4.0-6.0 Sep 02, 2020 11:30 AM [facility] URINALYSIS Specimen T ype: URINE No comment entered. Ordering Provider: CHAPARRO LEWIS Report Released Date/Time: Aug 27, 2020 09:04 AM Reporting Lab: [facility] [address] [facility] [address] Performing Lab: [facility] [place] [address] [facility] [address] URINE COLOR Yellow SPECIFIC GRAVITY 1.015 1.005-1.030 [...] /HPF Sep 02, 2020 11:30 AM [facility] MICROALBUMIN ([place], [place]) RANDO M URINE Specimen Type: URINE No comment entered. Ordering Provider: CHAPARRO LEWIS Report Released Date/Time: Aug 27, 2020 09:04 AM Reporting Lab: [facility] [place] [address] [facility] [address] Performing Lab: [facility] [place] [address] [address] [facility] [address] *MICROALBUMIN,RAND 12 ug/mL 0-29 *MICROALB/CREAT 18 mcg/mg cr 0-29 *UR CREATININE 68.7 mg/dL Sep 02, 2020 11:30 AM DELFINA GORDON CBC & DIFF Specimen T ype: BLOOD No comment entered. Ordering Provider: CHAPARRO LEWIS Report Released Date/Time: Aug 27, 2020 09:04 AM Reporting Lab: [facility] [place] [address] [facility] [address] Performing Lab: [facility] [place] [address] [address] [facility] [address] WBC 6.8 K/cmm 3.60-11.20 RBC 4.86 M/ul [...] Encounter. Date/Time Encounter Note(s) Provider Source Sep 01, 2020 01:52 PM ADMINISTRATIVE NOTE: LOCAL TITLE: SD-COVID-19 SCREENING STANDARD TITLE: ADMINISTRATIVE NOTE DATE OF NOTE: SEP 01, 2020@13:52 ENTRY DATE: SEP 01, 2020@13:52:52 AUTHOR: DESTINY CARREON EXP COSIGNER: URGENCY: STATUS: COMPLETED Coronavirus Disease 2019 (COVID-19) Screen The patient reports no COVID-19 diagnosis. The patient reports not waiting for the results of a COVID-19 lab test. The patient reports no fever. The patient reports no new or worsening cough or shortness of breath. The patient reports no cold or flu-like symptoms. The patient reports no new onset of diarrhea, nausea or vomiting. The patient reports no new onset of headache, loss of taste or loss of smell. The patient reports no exposure to someone with COVID-19 within the past 2 weeks. Result: Screen is negative. COVID-19 Immunization Status There is no record of COVID-19 vaccination. /dori/ DESTINY GORDON [employer] TROUBL[employer]HOOTER Signed: 09/01/2020 14:00 [facility]
[2021-08-07 19:00] VITALS: BP 139/78
[2021-08-07 19:18] LABS: BASOPHILS % (AUTO) 1 % (0-10); HEMOGLOBIN 14.5 g/dL (13.3-17.7)
[2021-08-07 19:20] LABS: EOSINOPHILS # (AUTO) 0.2 10^3/uL (0.0-0.3); EOSINOPHILS % (AUTO) 4 % (0-10); HEMATOCRIT 42 % (40-54); LYMPHOCYTES # (AUTO) 1.3 10^3/uL (1.0-4.0); LYMPHOCYTES % (AUTO) 24 % (12-44); MEAN CORPUSCULAR HEMOGLOBIN 32 pg (25-34); MEAN CORPUSCULAR HGB CONC 35 g/dL (32-36); MEAN CORPUSCULAR VOLUME 92 fL (80-99); MEAN PLATELET VOLUME 10.2 fL (9.0-12.2); MONOCYTES # (AUTO) 0.4 10^3/uL (0.0-1.0); MONOCYTES % (AUTO) 7 % (0-12); NEUTROPHILS # (AUTO) 3.4 10^3/uL (1.8-7.8); NEUTROPHILS % (AUTO) 64 % (42-75); PLATELET COUNT 119 10^3/uL (130-400); WHITE BLOOD COUNT 5.4 10^3/uL (4.3-11.0)
[2021-08-07 19:29] LABS: ALBUMIN 4.1 GM/DL (3.2-4.5); CHLORIDE 108 MMOL/L (98-107); POTASSIUM 3.8 MMOL/L (3.6-5.0); SODIUM 142 MMOL/L (135-145)
[2021-08-07 19:30] VITALS: BP 140/78
[2021-08-07 19:30] LABS: CALCIUM 9.2 MG/DL (8.5-10.1)
[2021-08-07 19:31] LABS: GLUCOSE 260 MG/DL (70-105)
[2021-08-07 19:33] LABS: BILIRUBIN,TOTAL 0.9 MG/DL (0.1-1.0); CARBON DIOXIDE 21 MMOL/L (21-32)
[2021-08-07 19:35] LABS: ALKALINE PHOSPHATASE 67 U/L (40-136); CREATININE SERUM 0.92 MG/DL (0.60-1.30); GFR ESTIMATED 87
[2021-08-07 19:36] LABS: BUN/CREATININE RATIO 18
[2021-08-07 19:38] LABS: ALANINE AMINOTRANSFERASE 21 U/L (0-55); FIBRIN DEGRADATION PRODUCTS 8.22 UG/ML (0.00-0.49); INR 1.1 (0.8-1.4); PROTHROMBIN TIME PATIENT 14.8 SEC (12.2-14.7)
[2021-08-07 20:00] VITALS: BP 143/84
[2021-08-07 20:30] VITALS: BP 130/80
[2021-08-07] MEDS: SENNOSIDES 8.6 MG (SENOKOT) TAB PO SCH (20:46)
[2021-08-07] MEDS: DOCUSATE SODIUM 100 MG (COLACE) CAP PO SCH (20:46)
[2021-08-07] MEDS ORDERED: CLOP75TA28 PO (20:49)
[2021-08-07] MEDS ORDERED: SITA100T12 PO (20:49)
[2021-08-07] MEDS ORDERED: SACU1TAB2 PO ×2 (20:49→21:28)
[2021-08-07 21:00] VITALS: BP 140/78
[2021-08-07] MEDS ORDERED: HOLD METFORMIN - RECEIVED CONTRAST 20 ML VIAL IV SCH (21:00)
[2021-08-07] MEDS ORDERED: GABAPENTIN 300 MG (NEURONTIN) CAP PO ONE (21:00)
[2021-08-07] MEDS ORDERED: GABAPENTIN 300 MG (NEURONTIN) CAP PO SCH (21:00)
[2021-08-07] MEDS ORDERED: PATIENT MAY USE OWN MED,SINGLE MED PO SCH (21:00)
[2021-08-07] MEDS ORDERED: polyethylene glycoL POWDER 17 GM (MIRALAX) PACK PO SCH (21:00)
[2021-08-07] MEDS ORDERED: NS 100 ML (IVPB) BAG IV ONE (21:00)
[2021-08-07] MEDS ORDERED: MAGNESIUM OXIDE (MAG-OX)400 MG TAB PO SCH (21:00)
[2021-08-07] MEDS ORDERED: SACUBITRIL/VALSARTAN 24/26 MG (ENTRESTO) TABLET PO SCH (21:00)
[2021-08-07] MEDS ORDERED: IOHEXOL 350 MG/ML 100 ML (OMNIPAQUE 350) VIAL IV ONE (21:00)
[2021-08-07] MEDS ORDERED: TMSL.4C PO (21:14)
[2021-08-07] MEDS ORDERED: MAGN400C PO (21:28)
[2021-08-07] MEDS ORDERED: NAPR-915 PO (21:28)
[2021-08-07] MEDS ORDERED: POLY17PO6 PO (21:28)
[2021-08-07] MEDS ORDERED: GABA300S2 PO (21:28)
[2021-08-07] MEDS ORDERED: MTP25TSR PO (21:28)
[2021-08-07] MEDS ORDERED: TADA5TAB4 PO (21:28)
[2021-08-07] MEDS ORDERED: METF-397 PO (21:28)
[2021-08-07] MEDS ORDERED: ATOR80TA76 PO (21:28)
[2021-08-07] MEDS ORDERED: ASPI-999 PO (21:28)
--- NOTE | 2021-08-07 21:34 | Diagnostic Imaging Report ---
PROCEDURE: CT angiography of the chest with contrast. TECHNIQUE: Multiple contiguous axial images were obtained through the chest after uneventful bolus administration of intravenous contrast. 3D reconstructed CTA MIP acquisitions were also performed. Auto Exposure Controls were utilized during the CT exam to meet ALARA standards for radiation dose reduction. INDICATION: Shortness of breath, elevated D-dimer. COMPARISON: None. FINDINGS: The heart is mildly enlarged without pericardial effusion or pulmonary edema. Coronary artery disease is present. 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 There is no pulmonary embolism or acute aortic pathology. There is some minimal consolidation in the left lung base. Right lung is clear. There is no pneumothorax or effusion. Osseous structures are unremarkable. The gallbladder is contracted containing gallstones. Otherwise, visualized upper abdominal solid organs are unremarkable. IMPRESSION: 1. Cholelithiasis with chronic appearing contraction of the gallbladder. 2. Coronary artery disease. 3. Consolidation and/or infiltrate in the left base. 4. No pulmonary embolism. Dictated by: Dictated on workstation # [id number]
[2021-08-07] MEDS ORDERED: RT-ALBUTEROL SULF 2.5 MG/3 ML PRE-MIX VIAL INH SCH (21:45)
[2021-08-07] MEDS: inSUlin ASPART (NovoLOG) 1 UNIT/0.01 ML (CHARGE PER UNIT) SC SCH (21:51)
[2021-08-07] MEDS: SACUBITRIL/VALSARTAN 24/26 MG (ENTRESTO) TABLET PO SCH (21:54)
[2021-08-07] MEDS: NAPROXEN 250 MG (NAPROSYN) TABLET PO SCH (21:55)
[2021-08-07] MEDS ORDERED: NS (IVPB) 250 ML ONE (22:53)
[2021-08-07] MEDS ORDERED: cefTRIAXone 1 GM PRE-MIX 50 ML IV SCH (23:00)
[2021-08-07] MEDS ORDERED: AZITHROMYCIN INJECTION 500 MG in NS (IVPB) 250 ML IV SCH (23:00)
[2021-08-08] VITALS: BP 140/81
[2021-08-08 03:55] VITALS: BP 135/79
[2021-08-08 05:43] LABS: HEMOGLOBIN 13.7 g/dL (13.3-17.7)
[2021-08-08 05:45] LABS: BASOPHILS % (AUTO) 0 % (0-10); EOSINOPHILS # (AUTO) 0.3 10^3/uL (0.0-0.3); EOSINOPHILS % (AUTO) 6 % (0-10); HEMATOCRIT 41 % (40-54); LYMPHOCYTES # (AUTO) 1.2 10^3/uL (1.0-4.0); LYMPHOCYTES % (AUTO) 26 % (12-44); MEAN CORPUSCULAR HEMOGLOBIN 31 pg (25-34); MEAN CORPUSCULAR HGB CONC 34 g/dL (32-36); MEAN CORPUSCULAR VOLUME 93 fL (80-99); MONOCYTES # (AUTO) 0.5 10^3/uL (0.0-1.0); MONOCYTES % (AUTO) 10 % (0-12); NEUTROPHILS # (AUTO) 2.7 10^3/uL (1.8-7.8); NEUTROPHILS % (AUTO) 57 % (42-75); PLATELET COUNT 109 10^3/uL (130-400); WHITE BLOOD COUNT 4.7 10^3/uL (4.3-11.0)
--- NOTE | 2021-08-08 05:57 | Short Stay Summary ---
History of Present Illness History of Present Illness Reason for visit/HPI Chief complaint: Chest pressure with shortness of breath History of present illness: This is a 76-year-old white male clinic patient of mine with very complex cardiac history presents to cardiac stepdown as a direct admission from my clinic due to concerning chest pressure and shortness of breath. Intensive work-up ensued along with cardiology consultation. Patient was found to have slightly elevated BNP of 200 so patient was given Lasix [address] angiogram was obtained due to elevated D-dimer of 8 but no evidence of PE and only early infiltrate in the left lower lobe suspicious for pneumonia. COVID swab was negative. He is fully vaccinated with a booster. Bilateral lower extremity ultrasound was completed and showed no evidence of DVT. Urinalysis was normal after he reported dysuria. Updated patient on results and plan and daughter on the phone from [facility]. Echocardiogram reviewed. Date of Admission Aug 07, 2021 at 18:48 Date of Discharge 08/08/2021 Time Seen by Provider: 11:00 Attending Physician Barbara Mckeon DO Admitting Physician Barbara Mckeon DO Consult Allergies and Home Medications Allergies Coded Allergies: Penicillins (Verified Allergy, Mild, Rash, 08/07/21) Patient Home Medication List Home Medication List Reviewed: Yes Aspirin (Aspirin) 81 Mg Tab.chew, 81 MG PO DAILY, (Reported) Entered as Reported by: TANVI SAMANO on 08/07/212127 Last Action: New Order Atorvastatin Calcium (Atorvastatin Calcium) 80 Mg Tablet, 80 MG PO HS, (Reported) Entered as Reported by: TANVI SAMANO on 08/07/212127 Last Action: New Order Cefdinir (Cefdinir) 300 Mg Capsule, 300 MG PO BID Prescribed by: BARBARA MCKEON on 08/08/21 152 Clopidogrel Bisulfate (Clopidogrel) 75 Mg Tablet, 75 MG PO DAILY, (Reported) Entered as Reported by: BARBARA MCKEON on 08/07/212048 Last Action: New Order Famotidine (Famotidine) 20 Mg Tablet, 20 MG PO BID Prescribed by: BARBARA MCKEON on 08/08/21 1529 Furosemide (Lasix) 20 Mg Tablet, 20 MG PO Q48H Prescribed by: BARBARA MCKEON on 08/08/21 1617 Gabapentin (Gabapentin) 300 Mg/6 Ml Solution, 300 MG PO HS, (Reported) Entered as Reported by: TANVI SAMANO on 08/07/212127 Last Action: New Order Magnesium Oxide (Magnesium) 400 Mg Capsule, 400 MG PO BID, (Reported) Entered as Reported by: TANVI SAMANO on 08/07/212127 Last Action: New Order Metformin HCl (Metformin HCl) 500 Mg Tablet, 500 MG PO BID WITH MEALS, (Reported) Entered as Reported by: TANVI SAMANO on 08/07/212127 Last Action: New Order Metoprolol Succinate (Metoprolol Succinate) 25 Mg Tab.er.24h, 25 MG PO DAILY, (Reported) Entered as Reported by: TANVI SAMANO on 08/07/212127 Last Action: New Order Naproxen (Naproxen) 500 Mg Tablet, 500 MG PO Q12H, (Reported) Entered as Reported by: TANVI SAMANO on 08/07/212127 Last Action: New Order Polyethylene Glycol 3350 (Miralax) 17 Gm Powd.pack, 17 GM PO DAILY, (Reported) Entered as Reported by: TANVI SAMANO on 08/07/212127 Last Action: New Order Sacubitril/Valsartan (Entresto 24 mg-26 mg Tablet) 1 Each Tablet, 1 TAB PO BID, (Reported) Entered as Reported by: TANVI SAMANO on 08/07/212127 Last Action: New Order Sitagliptin Phosphate (Januvia) 100 Mg Tablet, 100 MG PO DAILY, (Reported) Entered as Reported by: BARBARA MCKEON on 08/07/212048 Last Action: New Order Tadalafil (Tadalafil) 5 Mg Tablet, 5 MG PO DAILY PRN, (Reported) Entered as Reported by: TANVI SAMANO on 08/07/212127 Last Action: New Order Tamsulosin HCl (Flomax) 0.4 Mg Cap, 0.4 MG PO, (Reported) Entered as Reported by: Kori Mcgill on 08/07/212113 Last Action: New Order Discontinued Medications Sacubitril/Valsartan (Entresto 24 mg-26 mg Tablet) 1 Each Tablet, 24-26 MG PO BID, (Reported) Entered as Reported by: BARBARA MCKEON on 08/07/212048 Last Action: Discontinued Past Huzypxg-Mkqmqe-Etdtix Hx Patient Social History Marrital Status: single Employed/Student: retired Smoking Status: Former Smoker Alcohol Use?: No Pt feels they are or have been: No Surgeries CABG, Valve Replacement Respiratory No Cardiovascular Chronic Edema/Swelling, Coronary Artery Disease, High Cholesterol, Hypertension, Valvular Heart Disease Neurological Yes Stroke Genitourinary No Gastrointestinal No Musculoskeletal Yes Arthritis Endocrine History of Endocrine Disorders: Yes Endocrine Disorders: Diabetes, Non-Insulin dep Are Your Blood Sugars Over 250: No HEENT History of HEENT Disorders: No Psychosocial History of Psychiatric Problem: Yes Behavioral Health Disorders: Anxiety Integumentary History of Skin or Integumenta: No Family Medical History Significant Family History: Heart Disease Review of Systems Constitutional: see HPI, dizziness, malaise, weakness EENTM: no symptoms reported Respiratory: dyspnea on exertion, short of breath Cardiovascular: chest pain, palpitations Gastrointestinal: no symptoms reported Genitourinary: dysuria Musculoskeletal: back pain Skin: no symptoms reported Psychiatric/Neurological: Anxiety All Other Systems Reviewed Negative Unless Noted: Yes Physical Exam Vital Signs Vital Signs - First Documented Capillary Refill : Height, Weight, BMI Height: '" Weight: lbs. oz. kg; 29.47 BMI Method: General Appearance: No Apparent Distress, WD/WN, Chronically ill Eyes: Bilateral Eye Normal Inspection, Bilateral Eye PERRL, Bilateral Eye EOMI HEENT: PERRL/EOMI, Normal ENT Inspection, Pharynx Normal Neck: Full Range of Motion, Normal Inspection, Non Tender, Supple, Carotid Bruit Respiratory: Chest Non Tender, Lungs Clear, Normal Breath Sounds, No Accessory Muscle Use, No Respiratory Distress Cardiovascular: Regular Rate, Rhythm, No Edema, No Gallop, No JVD, No Murmur, Normal Peripheral Pulses Gastrointestinal: Normal Bowel Sounds, No Organomegaly, No Pulsatile Mass, Non Tender, Soft Back: Normal Inspection, No CVA Tenderness, No Vertebral Tenderness Extremity: Normal Capillary Refill, Normal Inspection, Normal Range of Motion, Non Tender, No Calf Tenderness, No Pedal Edema Neurologic/Psychiatric: Alert, Oriented x3, No Motor/Sensory Deficits, Normal Mood/Affect Skin: Normal Color, Warm/Dry Lymphatic: No Adenopathy Short Stay Diagnosis Discharge Diagnosis-Short Stay Admission Diagnosis: Chest pressure suggestive of acute coronary syndrome and known CAD patient Shortness of breath Final Discharge Diagnosis: Chest pressure suggestive of acute coronary syndrome and known CAD patient ruled out ACS CAD, h/o CABG in [facility] 2018 H/o bioprosthetic AVR in 2018 in [facility] H/o 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, probably chronic Probable h/o cardiomyopathy (based on patient's home regimen of sacubitril/valsartan, metoprolol succinate, and furosemide) Elevated D-dimer of 8 but no PE on CT angiogram or DVT on ultrasound Early pneumonia left lower base placed on antibiotics empirically COVID test negative Dysuria UA negative except for small amount of blood Stomach acid hyperactivity will place on Pepcid Conclusion Labs Laboratory Tests 08/07/21 19:10: White Blood Count 5.4, Red Blood Count 4.57, Hemoglobin 14.5, Hematocrit 42, Mean Corpuscular Volume 92, Mean Corpuscular Hemoglobin 32, Mean Corpuscular Hemoglobin Concent 35, Red Cell Distribution Width 13.0, Platelet Count 119L, Mean Platelet Volume 10.2, Immature Granulocyte % (Auto) 0, Neutrophils (%) (Auto) 64, Lymphocytes (%) (Auto) 24, Monocytes (%) (Auto) 7, Eosinophils (%) (Auto) 4, Basophils (%) (Auto) 1, Neutrophils # (Auto) 3.4, Lymphocytes # (Auto) 1.3, Monocytes # (Auto) 0.4, Eosinophils # (Auto) 0.2, Basophils # (Auto) 0.0, Immature Granulocyte # (Auto) 0.0, Percent Immature Platelet Fraction 2.2, Prothrombin Time 14.8H, INR Comment 1.1, Activated Partial Thromboplast Time 30, D-Dimer 8.22H, Sodium Level 142, Potassium Level 3.8, Chloride Level 108H, Carbon Dioxide Level 21, Anion Gap 13, Blood Urea Nitrogen 17, Creatinine 0.92, Estimat Glomerular Filtration Rate 87, BUN/Creatinine Ratio 18, Glucose Level 260H, Calcium Level 9.2, Corrected Calcium 9.1, Total Bilirubin 0.9, Aspartate Amino Transf (AST/SGOT) 19, Alanine Aminotransferase (ALT/SGPT) 21, Alkaline Ph osphatase 67, Troponin I < 0.028, B-Type Natriuretic Peptide 216.5H, Total Protein 7.0, Albumin 4.1 08/07/21 20:31: Glucometer 184H 08/07/21 23:05: Troponin I < 0.028, Lactic Acid Level 0.68 08/08/21 05:35: White Blood Count 4.7, Red Blood Count 4.41, Hemoglobin 13.7, Hematocrit 41, Mean Corpuscular Volume 93, Mean Corpuscular Hemoglobin 31, Mean Corpuscular Hemoglobin Concent 34, Red Cell Distribution Width 12.9, Platelet Count 109L, Mean Platelet Volume 10.0, Immature Granulocyte % (Auto) 0, Neutrophils (%) (Auto) 57, Lymphocytes (%) (Auto) 26, Monocytes (%) (Auto) 10, Eosinophils (%) (Auto) 6, Basophils (%) (Auto) 0, Neutrophils # (Auto) 2.7, Lymphocytes # (Auto) 1.2, Monocytes # (Auto) 0.5, Eosinophils # (Auto) 0.3, Basophils # (Auto) 0.0, Immature Granulocyte # (Auto) 0.0, Percent Immature Platelet Fraction 2.5 Conclusion/Plan Discharge home Antibiotic for pneumonia Lasix for overload Pepcid for stomach acid hyperactivity requested by his dentist BARBARA MCKEON DO Aug 08, 2021 05:57
[2021-08-08] MEDS ORDERED: FUROSEMIDE 40 MG/4 ML INJ (LASIX) IVP ONE (06:00)
[2021-08-08 06:03] LABS: TRIGLYCERIDES 79 MG/DL (<150); VLDL CHOLESTEROL 16 MG/DL (5-40)
[2021-08-08 06:08] LABS: CHOLESTEROL 133 MG/DL (< 200)
[2021-08-08 06:09] LABS: HDL CHOLESTEROL 29 MG/DL (40-60)
[2021-08-08 06:11] LABS: ALBUMIN 3.8 GM/DL (3.2-4.5); POTASSIUM 3.7 MMOL/L (3.6-5.0)
[2021-08-08 06:13] LABS: CALCIUM 9.1 MG/DL (8.5-10.1)
[2021-08-08 06:14] LABS: TOTAL PROTEIN 6.4 GM/DL (6.4-8.2)
[2021-08-08 06:16] LABS: BILIRUBIN,TOTAL 0.6 MG/DL (0.1-1.0)
[2021-08-08 06:17] LABS: CREATININE SERUM 0.79 MG/DL (0.60-1.30)
[2021-08-08] MEDS: inSUlin ASPART (NovoLOG) 1 UNIT/0.01 ML (CHARGE PER UNIT) SC SCH ×2 (06:24→11:19)
[2021-08-08 07:42] VITALS: BP 126/82
[2021-08-08] MEDS ORDERED: MAGNESIUM OXIDE (MAG-OX)400 MG TAB PO SCH (08:00)
--- NOTE | 2021-08-08 08:14 | Diagnostic Imaging Report ---
Portable erect AP chest at 6:19. Indication: Pneumonia The CTA chest exam performed on 08/07/2021 noted an area of minimal consolidation involving the left lung base. That finding is difficult to appreciate on this study. The lungs seem generally clear. The heart is stable in size. The sternotomy wires and surgical clips noted previously are again evident and no different. The mediastinum is not widened. The osseous structures are intact. Impression: The minimal atelectasis/infiltrate in the left lung base seen previously is not well visualized on this study. There is no acute cardiopulmonary abnormality noted. Dictated by: Dictated on workstation # [id number]
[2021-08-08 08:22] VITALS: BP 126/82
[2021-08-08] MEDS ORDERED: RT-ALBUTEROL SULF 2.5 MG/3 ML PRE-MIX VIAL INH PRN (08:45)
[2021-08-08] MEDS ORDERED: CLOPIDOGREL 75 MG (PLAVIX) TABLET PO SCH (09:00)
[2021-08-08] MEDS ORDERED: ASPIRIN 81 MG CHEW (CHILDREN'S ASA) PO SCH (09:00)
[2021-08-08] MEDS ORDERED: ASPIRIN E.C. 81 MG (ECOTRIN) TAB PO SCH (09:00)
[2021-08-08] MEDS: SACUBITRIL/VALSARTAN 24/26 MG (ENTRESTO) TABLET PO SCH (10:00)
[2021-08-08] MEDS: SENNOSIDES 8.6 MG (SENOKOT) TAB PO SCH (10:00)
[2021-08-08] MEDS: DOCUSATE SODIUM 100 MG (COLACE) CAP PO SCH (10:01)
[2021-08-08] MEDS: NAPROXEN 250 MG (NAPROSYN) TABLET PO SCH (10:01)
[2021-08-08] MEDS ORDERED: FAMOTIDINE 20 MG (PEPCID) TABLET PO SCH (10:30)
[2021-08-08 11:13] VITALS: BP 126/87
[2021-08-08 11:31] LABS: BILIRUBIN,URINE NEGATIVE (NEGATIVE); CLARITY,URINE CLEAR; COLOR,URINE YELLOW; GLUCOSE, URINE (UA) NEGATIVE (NEGATIVE); KETONES,URINE NEGATIVE (NEGATIVE); LEUKOCYTE ESTERASE ,URINE NEGATIVE (NEGATIVE); NITRITE,URINE NEGATIVE (NEGATIVE); PROTEIN,URINE NEGATIVE (NEGATIVE)
[2021-08-08 11:49] LABS: BACTERIA,URINE NEGATIVE /HPF; SQUAMOUS EPITHELIAL CELL,UR 0-2 /HPF; WBC,URINE RARE /HPF
--- NOTE | 2021-08-08 12:37 | Diagnostic Imaging Report ---
PROCEDURE: US Venous Lower Ext Juan. TECHNIQUE: Multiple real-time grayscale images were obtained over the lower extremities in various projections, bilaterally. Additional duplex Doppler and color Doppler images were also obtained. INDICATION: Edema in the bilateral lower extremities, elevated D-dimer, dyspnea. COMPARISON: None FINDINGS: The bilateral common femoral vein, femoral vein, deep femoral vein, and popliteal vein are normal in appearance. These vessels show normal compressibility, color flow and doppler augmentation. The visualized deep calf veins demonstrate no distinct intraluminal thrombus. IMPRESSION: 1. No sonographic evidence of deep venous thrombosis in the bilateral lower extremities. Dictated by: Dictated on workstation # [id number]
--- NOTE | 2021-08-08 14:38 | Consultation-Cardiology ---
HPI-Cardiology Cardiology Consultation: Date of Consultation 08/08/21 Time Seen by a Provider: 13:45 Date of Admission Attending Physician Barbara Mckeon DO Admitting Physician Barbara Mckeon DO Consulting Physician JUNE ANN MD, MA, FACP, FACC, [facility], [facility] Physician requesting consult: Dr Mckeon Primary trauma program manager: Dr Stephenson HPI: Chief Complaint: Chest discomfort, shortness of breath 76 yo man with a cardiac history that is noted under Assessment who was admitted by Dr Mckeon for eval of symptoms of shortness of breath and chest discomfort, present for the last 2-3 weeks. Shortness of breath is with mod exertion (15 min of stationary bike) and relieved with rest. Chest discomfort has been L parasternal, sharp, lasting a few seconds to a min or so after having lifted heavy objects, w/o radiation, w/o accompanying symptoms. No palp or syncope or swelling Review of Systems-Cardiology Review of Systems Constitutional: No malaise, No tiredness, No weight loss, No weight gain Eyes: No vision change Ears/Nose/Throat: No nasal drainage, No recent hearing loss Respiratory: As described under HPI Cardiovascular: As described under HPI Gastrointestinal: No constipation, No diarrhea, No nausea, No vomiting Genitourinary: No dysuria, No hematuria, No urine frequency changes Musculoskeletal: No joint pain Skin: No rash, No ulcerations Psychiatric/Neurological: No seizure, No focal weakness Hematologic: No bleeding abnormalities UMP-Pctuvo-Jsqepe Hx Patient Social History Smoking Status: Former Smoker Alcohol Use?: No Pt feels they are or have been: No Past Medical History PMH As described under Assessment. Family Medical History Family Medical History: He does not report fam h/o early CAD or SCD Allergies and Home Medications Allergies Coded Allergies: Penicillins (Verified Allergy, Mild, Rash, 08/07/21) Patient Home Medication List Home Medication List Reviewed: Yes Aspirin (Aspirin) 81 Mg Tab.chew, 81 MG PO DAILY, (Reported) Entered as Reported by: TANVI SAMANO on 08/07/212127 Last Action: New Order Atorvastatin Calcium (Atorvastatin Calcium) 80 Mg Tablet, 80 MG PO HS, (Reported) Entered as Reported by: TANVI SAMANO on 08/07/212127 Last Action: New Order Clopidogrel Bisulfate (Clopidogrel) 75 Mg Tablet, 75 MG PO DAILY, (Reported) Entered as Reported by: BARBARA MCKEON on 08/07/212048 Last Action: New Order Gabapentin (Gabapentin) 300 Mg/6 Ml Solution, 300 MG PO HS, (Reported) Entered as Reported by: TANVI SAMANO on 08/07/212127 Last Action: New Order Magnesium Oxide (Magnesium) 400 Mg Capsule, 400 MG PO BID, (Reported) Entered as Reported by: TANVI SAMANO on 08/07/212127 Last Action: New Order Metformin HCl (Metformin HCl) 500 Mg Tablet, 500 MG PO BID WITH MEALS, (Reported) Entered as Reported by: TANVI SAMANO on 08/07/212127 Last Action: New Order Metoprolol Succinate (Metoprolol Succinate) 25 Mg Tab.er.24h, 25 MG PO DAILY, (Reported) Entered as Reported by: TANVI SAMANO on 08/07/212127 Last Action: New Order Naproxen (Naproxen) 500 Mg Tablet, 500 MG PO Q12H, (Reported) Entered as Reported by: TANVI SAMANO on 08/07/212127 Last Action: New Order Polyethylene Glycol 3350 (Miralax) 17 Gm Powd.pack, 17 GM PO DAILY, (Reported) Entered as Reported by: TANVI SAMANO on 08/07/212127 Last Action: New Order Sacubitril/Valsartan (Entresto 24 mg-26 mg Tablet) 1 Each Tablet, 24-26 MG PO BID, (Reported) Entered as Reported by: BARBARA MCKEON on 08/07/212048 Last Action: New Order Sacubitril/Valsartan (Entresto 24 mg-26 mg Tablet) 1 Each Tablet, 1 TAB PO BID, (Reported) Entered as Reported by: TANVI SAMANO on 08/07/212127 Last Action: New Order Sitagliptin Phosphate (Januvia) 100 Mg Tablet, 100 MG PO DAILY, (Reported) Entered as Reported by: BARBARA MCKEON on 08/07/212048 Last Action: New Order Tadalafil (Tadalafil) 5 Mg Tablet, 5 MG PO DAILY PRN, (Reported) Entered as Reported by: TANVI SAMANO on 08/07/212127 Last Action: New Order Tamsulosin HCl (Flomax) 0.4 Mg Cap, 0.4 MG PO, (Reported) Entered as Reported by: Kori Mcgill on 08/07/212113 Last Action: New Order Physical Exam-Cardiology Physical Exam Vital Signs/I&O 08/08/21 08/08/21 08/08/21 08/08/21 03:55 07:00 07:42 08:22 Temp 36.4 36.2 36.2 Pulse 58 59 61 63 Resp 13 20 B/P (MAP) 135/79 (97) 126/82 (97) Pulse Ox 94 95 96 O2 Delivery Room Air Room Air FiO2 21 08/08/21 08/08/21 08/08/21 08:22 11:13 12:38 Temp 36.2 Pulse 71 62 Resp 17 B/P (MAP) 126/87 (100) Pulse Ox 96 94 O2 Delivery Room Air Room Air 08/08/21 00:00 Intake Total 400 ml Balance 400 ml Capillary Refill : Constitutional: AAO x 3, well-developed, well-nourished HEENT: PERRL, EOMI; No xanthelasmas are seen Neck: carotid pulses are 2 + bilaterally, with good upstrokes Respiratory: No accessory muscle use; other (good, bilat air entry) Cardiovascular: regular rate-rhythm, S1 and S2, systolic murmur (2/6 MSM at card base) Gastrointestinal: No tender; soft; No guarding, No rebound; audible bowel sounds Extremities: No clubbing, No cyanosis, No significant edema Neurologic/Psychiatric: oriented x 3, other (moves all limbs equally) Skin: No rash on exposed areas, No ulcerations on exposed areas Data Review Labs Laboratory Tests 08/07/21 19:10: White Blood Count 5.4, Red Blood Count 4.57, Hemoglobin 14.5, Hematocrit 42, Mean Corpuscular Volume 92, Mean Corpuscular Hemoglobin 32, Mean Corpuscular Hemoglobin Concent 35, Red Cell Distribution Width 13.0, Platelet Count 119L, Mean Platelet Volume 10.2, Immature Granulocyte % (Auto) 0, Neutrophils (%) (Auto) 64, Lymphocytes (%) (Auto) 24, Monocytes (%) (Auto) 7, Eosinophils (%) (Auto) 4, Basophils (%) (Auto) 1, Neutrophils # (Auto) 3.4, Lymphocytes # (Auto) 1.3, Monocytes # (Auto) 0.4, Eosinophils # (Auto) 0.2, Basophils # (Auto) 0.0, Immature Granulocyte # (Auto) 0.0, Percent Immature Platelet Fraction 2.2, Prothrombin Time 14.8H, INR Comment 1.1, Activated Partial Thromboplast Time 30, D-Dimer 8.22H, Sodium Level 142, Potassium Level 3.8, Chloride Level 108H, Carbon Dioxide Level 21, Anion Gap 13, Blood Urea Nitrogen 17, Creatinine 0.92, Estimat Glomerular Filtration Rate 87, BUN/Creatinine Ratio 18, Glucose Level 260H, Calcium Level 9.2, Corrected Calcium 9.1, Total Bilirubin 0.9, Aspartate A neil Transf (AST/SGOT) 19, Alanine Aminotransferase (ALT/SGPT) 21, Alkaline Phosphatase 67, Troponin I < 0.028, B-Type Natriuretic Peptide 216.5H, Total Protein 7.0, Albumin 4.1 08/07/21 20:31: Glucometer 184H 08/07/21 23:05: Troponin I < 0.028, Lactic Acid Level 0.68 08/08/21 05:35: White Blood Count 4.7, Red Blood Count 4.41, Hemoglobin 13.7, Hematocrit 41, Mean Corpuscular Volume 93, Mean Corpuscular Hemoglobin 31, Mean Corpuscular Hemoglobin Concent 34, Red Cell Distribution Width 12.9, Platelet Count 109L, Mean Platelet Volume 10.0, Immature Granulocyte % (Auto) 0, Neutrophils (%) (Auto) 57, Lymphocytes (%) (Auto) 26, Monocytes (%) (Auto) 10, Eosinophils (%) (Auto) 6, Basophils (%) (Auto) 0, Neutrophils # (Auto) 2.7, Lymphocytes # (Auto) 1.2, Monocytes # (Auto) 0.5, Eosinophils # (Auto) 0.3, Basophils # (Auto) 0.0, Immature Granulocyte # (Auto) 0.0, Percent Immature Platelet Fraction 2.5, Sodium Level 140, Potassium Level 3.7, Chloride Level 108H, Carbon Dioxide Level 19L, Anion Gap 13, Blood Urea Nitrogen 17, Creatinine 0.79, Estimat Glomerular Filtration Rate 93, BUN/Creatinine Ratio 22, Glucose Level 127H, Calcium Level 9.1, Corrected Calcium 9.3, Total Bilirubin 0.6, Aspartate Amino Transf (AST/SGOT) 19, Alanine Aminotransferase (ALT/SGPT) 21, Alkaline Phosphatase 64, Troponin I < 0.028, Total Protein 6.4, Albumin 3.8, Triglycerides Level 79, Cholesterol Level 133, LDL Cholesterol Direct 96, VLDL Cholesterol 16, HDL Cholesterol 29L 08/08/21 10:23: Glucometer 191H 08/08/21 10:40: Urine Color YELLOW, Urine Clarity CLEAR, Urine pH 6.0, Urine Specific Hann[place]roix 1.015L, Urine Protein NEGATIVE, Urine Glucose (UA) NEGATIVE, Urine Ketones NEGATIVE, Urine Nitrite NEGATIVE, Urine Bilirubin NEGATIVE, Urine Urobilinogen 0.2, Urine Leukocyte Esterase NEGATIVE, Urine RBC (Auto) 2+H, Urine RBC 5-10H, Urine WBC RARE, Urine Squamous Epithelial Cells 0-2, Urine Crystals NONE, Urine Bacteria NEGATIVE, Urine Casts NONE, Urine Mucus NEGATIVE, Urine Culture Indicated NO 08/08/21 11:20: Influenza Type A (RT-PCR) Not Detected, Influenza Type B (RT-PCR) Not Detected, SARS-CoV-2 RNA (RT-PCR) Not Detected Laboratory Tests 08/07/21 19:10 08/08/21 05:35 A/P-Cardiology Assessment/Admission Diagnosis Non-specific chest discomfort and mild to mod shortness of breath without any evidence of ACS or any signficantly decompensated CHF CAD, h/o CABG in or around 2017 in [facility] H/o bioprosthetic AVR in 2017 in [facility] H/o ASD closure after stroke in or around 2007 in [facility] 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 I discussed this with him in detail. He does not wish to have that done here. Says will pursue with his trauma program manager. I have asked him to see his trauma program manager [place]. He understands and states will comply * Continue current regimen, including DAPT * Communicated cardiac recs to JUNE Romo MD FACP FACC CCDS Aug 08, 2021 14:38
[2021-08-08] MEDS ORDERED: CEFD300C3 PO (15:29)
[2021-08-08] MEDS ORDERED: FAMO20TA5 PO (15:29)
[2021-08-08 16:13] VITALS: BP 140/76
[2021-08-08] MEDS ORDERED: FURO-125 PO (16:17)
[2021-08-08] MEDS ORDERED: TAMSULOSIN 0.4 MG (FLOMAX) CAP PO SCH ×2 (18:00)
[2021-08-09] MEDS ORDERED: metFORMIN 500 MG (GLUCOPHAGE) TAB PO SCH (17:00)
== END 2021-08-08 16:45 | disposition home or self-care (01) ==
LOC: CSD 18:48
PROVIDERS: ADMIT Internal Medicine; ATTEND Internal Medicine
DX: I25.10 Atherosclerotic heart disease of native coronary artery without angina pectoris (principal); E11.9 Type 2 diabetes mellitus without complications; I44.7 Left bundle-branch block, unspecified; R79.1 Abnormal coagulation profile; J18.9 Pneumonia, unspecified organism; R07.89 Other chest pain; R06.02 Shortness of breath; E78.00 Pure hypercholesterolemia, unspecified; I11.0 Hypertensive heart disease with heart failure; I50.9 Heart failure, unspecified; M19.90 Unspecified osteoarthritis, unspecified site; F41.9 Anxiety disorder, unspecified; Z79.82 Long term (current) use of aspirin; Z79.02 Long term (current) use of antithrombotics/antiplatelets; Z79.84 Long term (current) use of oral hypoglycemic drugs; Z87.891 Personal history of nicotine dependence; Z86.73 Personal history of transient ischemic attack (TIA), and cerebral infarction without residual deficits; Z95.1 Presence of aortocoronary bypass graft; Z20.822 Contact with and (suspected) exposure to COVID-19
CPT/HCPCS: 36415; 71045; 71275; 80053; 80061; 81000; 82947; 83605; 83880; 84484; 85025; 85027; 85379; 85610; 85730; 87636; 93005; 93306; 93970; 94640; 94664; 94760

== ENCOUNTER 2021-11-05 06:05 | Outpatient (CLI) | payer MEDICARE, OTHER ==
[~2021-11-05] VITALS: Ht 182.9 cm; Wt 100.0 kg
[~2021-11-05 06:05] MED LIST: ASPI-999 PO; ATOR80TA76 PO; CEFD300C3 PO; CLOP75TA28 PO; FAMO20TA5 PO; FURO-125 PO; GABA300S2 PO; MAGN400C PO; METF-397 PO; MTP25TSR PO; NAPR-915 PO; POLY17PO6 PO; SACU1TAB2 PO; SITA100T12 PO; TADA5TAB4 PO; TMSL.4C PO
[2021-11-09] MEDS ORDERED: GABA300C PO (11:04)
[2021-11-09] MEDS ORDERED: ALOG25TA2 PO (11:04)
[2021-11-09] MEDS ORDERED: ASPI-999 PO (11:12)
== END 2021-11-09 11:23 | disposition home or self-care (01) ==
LOC: PREOP 06:05
PROVIDERS: ATTEND Specialist
DX: Z01.818 Encounter for other preprocedural examination (principal)

== ENCOUNTER 2021-11-13 09:54 | Day surgery (SDC) | payer MEDICARE, OTHER ==
[~2021-11-13] VITALS: Ht 152.9 cm; Wt 100.0 kg
[~2021-11-13 09:54] MED LIST changes: +ALOG25TA2 PO; +GABA300C PO
[2021-11-13] MEDS ORDERED: MOXIFLOXACIN OPHTH SOLN 5 MG/ML 0.3 ML SYRINGE OP ONE (10:45)
[2021-11-13] MEDS ORDERED: LIDOCAINE PF 1% 2 ML VIAL IR PRN (10:45)
[2021-11-13] MEDS ORDERED: POVIDONE (BETADINE) OPHTH SOLN 5% 30 ML OP ONE (10:45)
[2021-11-13] MEDS ORDERED: TIMOLOL MALEATE 0.5% 5 ML (TIMOPTIC) BTL OU PRN (10:45)
[2021-11-13] MEDS: TETRACAINE 0.5% OPHTH SOLN 4 ML BTL (SINGLE DOSE ONLY) OU PRN ×4 (10:51→11:08)
[2021-11-13] MEDS: TROPICAMIDE 1% OPH SOLN (MYDRIACYL) 15 ML BTL OP SCH ×3 (10:57→11:08)
[2021-11-13] MEDS: PHENYLEPHRINE 10% OPHTH (NEO-SYN) 5 ML BTL OU SCH ×3 (10:57→11:08)
[2021-11-13 11:05] VITALS: BP 124/74
[2021-11-13] MEDS ORDERED: MIDAZOLAM 2 MG/2 ML (VERSED) VIAL ONE (11:16)
--- NOTE | 2021-11-13 11:35 | Ophthalmologist Pre-Op Note ---
Pre-Operative Progress Note H&P Reviewed The H&P was reviewed, patient examined and no changes noted. Date H&P Reviewed: Nov 13, 2021 Time H&P Reviewed: 11:35 Pre-Op Dx Cataract, Left Eye SHIRLEY NERI MD Nov 13, 2021 11:35
--- NOTE | 2021-11-13 11:57 | Ophthalmology Operative Report ---
Cataract removal/placement IOL PREOPERATIVE DIAGNOSIS: Cataract Left Eye POSTOPERATIVE DIAGNOSIS: Cataract Left Eye PROCEDURE: Cataract removal and placement of posterior chamber implant, left eye SURGEON: Darryl Neri ANESTHESIA: Topical with sedation COMPLICATIONS: None ESTIMATED BLOOD LOSS: Minimal DESCRIPTION OF PROCEDURE: After proper informed consent was obtained, the patient, a 76 male, was taken to the Operating Room and the left eye was anesthetized with tetracaine. The left eye was then prepped and draped in the usual manner. A wire lid speculum was placed. A paracentesis was made at the left hand position. Preservative free lidocaine was injected into the anterior chamber followed by viscoelastic. A clear corneal incision was made in the temporal position. A capsulorrhexis was preformed and the central nuclear and cortical material were removed. The posterior capsule was polished and an Attila 19.5 [id number] was placed into the capsular bag. The residual viscoelastic was aspirated and balanced saline solution was injected into the anterior chamber. Moxifloxacin was injected into the anterior chamber. The wound was checked and found to be water tight. The patient tolerated the procedure well without complications. DARRYL NERI MD Nov 13, 2021 11:57
[2021-11-13 12:10] VITALS: BP 124/74
[2021-11-13] MEDS ORDERED: acetaZOLAMIDE ER 500 MG CAP (DIAMOX SEQUELS) PO ONE (12:30)
--- NOTE | 2021-11-13 13:21 | Anesthesia-General Post-Op ---
MAC Patient Condition Mental Status/LOC: Same as Preop Cardiovascular: Satisfactory Nausea/Vomiting: Absent Respiratory: Satisfactory Pain: Controlled Complications: Absent Post Op Complications Complications None Follow Up Care/Instructions Patient Instructions None needed. Anesthesiology Discharge Order Discharge Order Patient is doing well, no complaints, stable vital signs, no apparent adverse anesthesia problems. No complications reported per nursing. KIERSTEN ANDERSEN CRNA Nov 13, 2021 13:21
== END 2021-11-13 12:10 | disposition home or self-care (01) ==
LOC: SDC 09:54
PROVIDERS: ATTEND Specialist
DX: E11.36 Type 2 diabetes mellitus with diabetic cataract (principal); H25.9 Unspecified age-related cataract; Z95.1 Presence of aortocoronary bypass graft; Z95.5 Presence of coronary angioplasty implant and graft; Z87.891 Personal history of nicotine dependence; Z79.84 Long term (current) use of oral hypoglycemic drugs

== ENCOUNTER → 2022-10-11 | Outpatient (CLI) | payer MEDICARE, OTHER ==
--- NOTE | 2022-10-11 14:05 | Diagnostic Imaging Report ---
PROCEDURE: MRI lumbar spine. TECHNIQUE: Multiplanar, multisequence MRI of the lumbar spine was performed without contrast. INDICATION: Chronic low back pain. COMPARISON: None. FINDINGS: There is trace anterolisthesis at L3-L4 and L4-L5. There is disc height loss at L3-L4 and L4-L5 and L5-S1. Vertebral body heights are preserved. There are Modic type I degenerative endplate changes at L5-S1. No acute fracture is seen. The conus terminates in appropriate position. There is T2 hyperintense, T1 isointense signal posterior to the L3, L4, L5, and S1 vertebral bodies, measuring up to 8 mm in thickness. There appears to be some posterior extension as well on axial images. There is mild narrowing of the spinal canal. There is a large abdominal aortic aneurysm which is partially visible, and a stent appears to be in place. There are multiple cysts in the right kidney. T12-L1: No disc bulge. Mild facet arthropathy. No spinal canal stenosis. No foraminal stenosis. L1-L2: Diffuse disc bulge and facet arthropathy with ligamentous infolding. No spinal canal stenosis. Mild right foraminal narrowing. No left foraminal stenosis. L2-L3: Diffuse disc bulge and facet approximately with ligamentous infolding. Mild spinal canal narrowing. Moderate left and mild right foraminal stenosis. L3-L4: Diffuse disc bulge and facet arthropathy and ligamentous infolding. [id number] spinal canal stenosis. Severe bilateral foraminal stenosis. L4-L5: Diffuse disc bulge and facet arthropathy. Mild spinal canal narrowing. Severe right and moderate left foraminal stenosis. L5-S1: Diffuse disc bulge and facet arthropathy. No spinal canal stenosis. Severe bilateral foraminal stenosis. IMPRESSION: 1. Abnormal signal in the peripheral spinal canal, concerning for epidural hematoma. This is at least from L3 to S1, although there may be mild additional superior extension. This causes mild spinal canal narrowing, but no high-grade stenosis is seen. Abscess or neoplasm are in the differential but thought less likely. Consider postcontrast MRI to evaluate for enhancement and perhaps noncontrast CT to confirm density. 2. Multilevel degenerative changes, most severe in the lower lumbar spine. No high-grade spinal canal stenosis. Multilevel foraminal stenosis, as described above. 3. Large abdominal aortic aneurysm, as seen on the prior CT abdomen. Findings reported to Mariely at the office of Dr. Hurtado on 10/11/2022 at 1:43 p.m. Dictated by: Dictated on workstation # [id number]
== END ==
LOC: RAD 09:59
PROVIDERS: ATTEND Internal Medicine
DX: M47.895 Other spondylosis, thoracolumbar region (principal); M51.26 Other intervertebral disc displacement, lumbar region; M47.816 Spondylosis without myelopathy or radiculopathy, lumbar region; M48.061 Spinal stenosis, lumbar region without neurogenic claudication; I71.40 Abdominal aortic aneurysm, without rupture, unspecified; M54.30 Sciatica, unspecified side
CPT/HCPCS: 72148